=== PATIENT | male | born 1945 | race Caucasian/White ===

== ENCOUNTER 2016-12-08 14:12 | Inpatient (IN) ==
[2016-12-08] MEDS ORDERED: MORPHINE 2 MG/1 ML SYRINGE IV STA (15:30)
--- NOTE | 2016-12-08 15:33 | Emergency Department Note ---
Arrival - Arrival Chief Complaint: Extremity Problem Stated Complaint: severe Right foot pain ED Nursing Triage Note: C/o right foot pain-onset 8 weeks ago after a fall. Reports pain is worse today. Denies re-injuring foot. Reports that he has a wound to his right foot that he has been being treated by wound care. Mode of Arrival: Wheelchair Source: Patient Time Seen by Provider: 12/08/16 15:15 - History of Present Illness HPI Narrative: 71yo WM with PMH of HTN, CAD, PVD, prior CVA and AL presenting with right foot pain for the past 8 weeks. He states he fell initially and his right foot has been hurting since with worsening ulcer on his medial right foot. He had a fever up to 101.9 2 days ago and states that the foot is tremendously painful. He had planned to see Dr. Garcia after seeing his PCP Dr. Camara, but has not done this yet. Onset (ago): week(s) (8) Consistency: constant Severity: severe Quality: aching, sharp Allergies/Adverse Reactions: Allergies Allergy/AdvReac Type Severity Reaction Status Date / Time Transpore Tape Allergy Redness of Uncoded 10/09/16 05:23 Skin Home Medications: Home Medications Medication Instructions Recorded Confirmed Type Gabapentin 300 mg PO 0800,1200 09/20/15 12/08/16 History Methocarbamol Tab [Robaxin Tab] 500 mg PO BID PRN 09/20/15 12/08/16 History Morphine Sulfate [Morphine Sulfate 15 mg PO BEDTIME 09/20/15 12/08/16 History ER] traZODone [Desyrel] 150 mg PO BEDTIME 09/20/15 12/08/16 History Budesonide/Formoterol 160-4.5 2 puff INH BID 10/27/15 12/08/16 History [Symbicort 160-4.5] Spironolactone [Aldactone] 25 mg PO DAILY #30 tablet 11/03/15 12/08/16 Rx Rifaximin [Xifaxan] 550 mg PO BID 03/25/16 12/08/16 History Hydrocodone/Acetaminophen 1 tablet PO QID PRN 09/21/16 12/08/16 History [Hydrocodon-Acetaminophn 10-325] Carvedilol [Coreg] 6.25 mg PO BID #60 tablet 09/23/16 12/08/16 Rx Furosemide Tab [Lasix Tab] 40 mg PO DAILY #30 tablet 09/23/16 12/08/16 Rx Ipratropium/Albuterol Inhaler 1 puff INH QID #1 inhaler 09/23/16 12/08/16 Rx [Combivent Respimat Inhaler] Valsartan [Diovan] 40 mg PO DAILY #30 tablet 09/23/16 12/08/16 Rx Gabapentin 600 mg PO QPM 10/21/16 12/08/16 History Pantoprazole Sodium 40 mg PO AC SUPPER 10/21/16 12/08/16 History Albuterol Sulfate [Ventolin HFA] 2 puff INH Q4H PRN 12/04/16 12/08/16 History Lactulose Liquid [Chronulac] 160 gm PO DIRECTED 12/04/16 12/08/16 History dilTIAZem HCl [Diltiazem HCl] 120 mg PO DAILY 12/04/16 12/08/16 History Collagenase Oint [Santyl Oint] 1 applic TOP DAILY 12/08/16 12/08/16 History Review of System - Review of System Constitutional: Present: chills, fever Eyes: Absent: discharge, pain Head/Ears/Nose/Throat: Absent: earache, epistaxis Respiratory: Absent: cough, respiratory distress Cardiovascular: Absent: chest pain, palpitations, dyspnea on exertion, orthopnea Gastrointestinal: Absent: abdominal pain, nausea, diarrhea Genitourinary male: Absent: dysuria, frequency Musculoskeletal: Present: arthralgia, other (right foot pain, redness and swelling). Absent: arm pain, back pain Skin: Present: other (redness of right foot). Absent: rash, lesions Neurological: Absent: headache, weakness Psychiatric: Absent: anxiety, depression Endocrine: Absent: cold intolerance, fatigue Hematological/Lymphatic: Absent: easy bleeding, easy bruising Allergic/Immunologic: Absent: facial swelling, urticaria Medical,Surgical,& Family Hx - Medical History Cardio: History of: Cardiac Dysrhythmia (atrial fibrillation), CHF, Hypertension , Cardiovascular Problems (non-ischemic cardiomyopathy at [facility]) No history of: CAD Neurology: History of: Cerebrovascular Accident, Dementia, Seizures HEENT: History of: Ear Problem (DEAF RT EAR), Eye Problem (GLASSES) Endocrine: History of: Diabetes Mellitus (NIDDM) No history of: Diabetes Mellitus (IDDM) Respiratory: History of: COPD No history of: Respiratory Problems (PNEUM OR FLU VAC) Genitourinary: History of: Problems Gastrointestinal: History of: Liver Problems (Hepatitis C), GI Problems ( encephalopathy) Musculoskeletal: History of: Back/Neck Problems (CHRONIC DR. DEL CID HX INJECTIONS ), Musculoskeletal Problems (ARTHRITIS/LT SHOULDER ROTATOR CUFF TEAR-INJURY NOVEMBER 2014) Hematology: No history of: Blood Transfusion Reaction Other: History of: Skin Problems (left arm red and dry and has a lesion on it also) No history of: Anesthesia Reactions, Cancer - Surgical History Cardiac Surgeries: Sugical HX of: Cardiac Catheterization Patient Denies: Femoral-Popliteal Bypass Graft, Cardiac Surgery, Carotid Endarterectomy, Internal Defibrillator, Vascular Access Devices Neurologic Surgeries: Patient denies: Neurologic Surgery HEENT Surgeries: Surgical HX of: Eye Surgery (CATARACT RT/LT) Patient denies: Carotid Endarterectomy Abdominal Surgeries: Surgical HX of: Cholecystectomy, Colonoscopy Patient denies: Splenectomy Orthopedic Surgeries: Surgical HX of;: Orthopedic Surgery (RT RCR/FOR LT RCR 06/15), Spinal Surgery (Lumbar discectomy) - Family History Family History: Reports;: Family Cancer, Family Heart Disease, Family Hypertension - Social History Smoking Status: Current every day smoker Frequency of Alcohol Use: None Type of Drug Use: None Exam Vital Signs: Vital Signs Temperature 97.9 F 12/08/16 14:46 Pulse Rate 71 12/08/16 14:46 Respiratory Rate 20 12/08/16 14:46 Blood Pressure 141/96 12/08/16 14:46 O2 Sat by Pulse Oximetry 98 12/08/16 14:26 - General General appearance: alert, in no apparent distress - Head Head exam: Present: atraumatic, normocephalic - Eye Eye exam: Present: normal appearance, PERRL, EOMI - ENT ENT exam: Present: normal exam, normal oropharynx - Neck Neck exam: Present: normal inspection, full ROM, trachea midline - Chest Chest inspection: Present: normal inspection, symmetric chest wall rise - Respiratory Respiratory exam: Present: normal lung sounds bilaterally. Absent: accessory muscle use - Cardiovascular Cardiovascular exam: Present: regular rate, normal rhythm - Abdominal Exam Abdominal exam: Present: soft. Absent: distention - Extremities Exam Extremities exam: Present: other (right foot with medial ulcer, approximately 4cm x 3cm with escar formation, malodorous with scant purulent material noted, surrounding erythema noted and severly tender) - Back Exam Back exam: Present: normal inspection, full ROM - Neurological Exam Neurological exam: Present: alert, oriented X3 - Psychiatric Psychiatric exam: Present: normal affect, normal mood - Skin Skin exam: Present: warm, dry Course Course Narrative: XR right foot. Morphine 4mg for pain. Labs drawn. Concern for osteomyelitis. CRP 5, K 2.6, CO2 17. Pt discussed with Hospitalist for admit. Results - Labs CBC & BMP: 12/08/16 15:38 12/08/16 15:38 Disposition Clinical Impression: Right foot pain, Foot ulcer, Hypokalemia Case discussed with: patient Disposition: Still a Patient Condition: Stable
[2016-12-08 15:53] LABS: Basophils % 0.5 % (0.0-0.8); Eosinophils # 0.6 10*3/uL (0.0-0.87); Eosinophils % 6.7 % (0.00-10.9); Hematocrit 34.3 VOL% (42.0-52.0); Hemoglobin 11.9 GM/DL (14.0-18.0); Immature Granulocytes % 0.4 %; Immature Granulocytes Absolute 0.03 #; Lymphocytes # 1.1 10*3/uL (1.4-4.0); Lymphocytes % 13.1 % (21.2-54.2); Mean Corpuscular HGB Conc 34.7 GM/DL (32-36); Mean Corpuscular Hemoglobin 36 PG (27-34); Mean Corpuscular Volume 104.9 FL (87-102); Mean Platelet Volume 11.8 FL (9.6-12.0); Monocytes # 0.9 10*3/uL (0.11-0.8); Monocytes % 11.4 % (1.7-12.7); Neutrophils # 5.6 10*3/uL (1.4-7.4); Neutrophils % 67.9 % (38.7-73.9); Platelet Count 155 T/CUMM (130-400); Red Blood Count 3.27 MC/CUMM (3.8-5.5); Red Cell Distribution Width 14.3 % (9.3-17.3); White Blood Count 8.3 T/CUMM (4-12)
[2016-12-08] MEDS ORDERED: MORPHINE 2 MG/1 ML SYRINGE ONE (15:55)
--- NOTE | 2016-12-08 15:55 | XRay Report ---
History is right foot pain and ulcer Right foot, 3 views There are vascular calcifications present There is lateral displacement of the bases of the first through fifth metatarsals with respect to the tarsal bones with additional superior displacement of the bases of the metatarsals. There are mild hypertrophic changes in this area There is a chronic appearing deformity of the distal aspects of the second and third metatarsals presumably related to remote trauma Mild degenerative changes present in the ankle and foot. No discrete erosions or aggressive periosteal reaction is seen Impression: 1. Lisfranc deformity which could be related to trauma or a neuropathic joint. Clinical correlation requested 2. Demineralization with mild degenerative changes PROCEDURE INTERPRETED AT [facility] DEPARTMENT OF RADIOLOGY Final Report Signed by: Dr. Suad Conte
[2016-12-08 16:03] LABS: INR 1.2; PT Patient Result 12.7 SECS; Partial Thromboplastin Time 36.2 SECS (0-40)
[2016-12-08 16:16] LABS: Calcium 8.4 MG/DL (8.5-10.1); Osmolality,Calculated 277.7 MOS/KG (273-304); Potassium 2.6 MMOL/L (3.5-5.1)
[2016-12-08] MEDS ORDERED: SODIUM CHLORIDE 0.9% 1,000 ML IV STA (16:53)
[2016-12-08 16:57] LABS: Sedimentation Rate-Westergren 60 MM/HR (0-20)
[2016-12-08] MEDS ORDERED: GLUCAGON 1 MG VIAL IM PRN (17:31)
[2016-12-08] MEDS ORDERED: ONDANSETRON 4 MG/2 ML VIAL IV PRN (17:31)
[2016-12-08] MEDS ORDERED: DEXTROSE 50% 25 GM/50 ML VIAL IV PRN (17:31)
--- NOTE | 2016-12-08 17:46 | Hospitalist History & Physical ---
Assessment and Plan (1) Foot ulcer Status: Acute Assessment and plan: Admit to med surg unit. Consult wound care for foot. Obtain blood cultures. Consult Dr. Garcia to see. pain control. Current Visit: Yes (2) Hypokalemia Status: Acute Assessment and plan: Replace potassium per protocol. Check mag also. Telemetry monitoring. Repeat labs in am. Current Visit: Yes (3) Tobacco abuse Status: Chronic Assessment and plan: Nicotine patch. Smoking cessation therapy. Current Visit: No (4) Cirrhosis Status: Chronic Current Visit: No (5) Congestive heart failure Status: Chronic Current Visit: No Qualifiers: Congestive heart failure type: systolic (6) CAD (coronary artery disease) Status: Acute Current Visit: No History of Present Illness Chief complaint: right foot pain History of present illness: Mr. Olivia is a 71 year old white male with a history of hypertension, CAD, PVD, CVA, NH, dementia, seizures, HCV, CHF, A. fib, nonischemic cardiomyopathy requiring AICD, cirrhosis, and renal insufficiency that presented to the ED today with complaints of pain to his right foot x 8 weeks. Patient states that he fellon the floor and hit his foot on a nightstand. He was seen in the ED for the injury and reports that he has since developed an ulcer which has worsened. The area is swollen and red in color. Patient reported a fever of 101.9 states that the pain is excruciating. Patient also reports chills but denies chest pain, shortness of breath, cough, dyspnea on exertion, nausea, vomiting, diarrhea or any symptoms at this time. Patient states that he performs daily dressing changes to his foot but is unable to recall the ointment that he uses. Patient is seen by Dr. Camara who is his PCP and had a consult was placed to Dr. Garcia but he has not yet received an appointment time. A foot x-ray was performed in the ED showed mild degenerative changes present in the ankle and foot. The impression was 'Lisfranc deformity which could be related to trauma or neuropathic joint'. There were 'no discrete erosions or aggressive periosteal reaction' seen. Patient's case has been discussed with Dr. Cooper the patient will be admitted to the hospitalist service for further evaluation and treatment. Home Medications Medication Instructions Recorded Confirmed Type Gabapentin 300 mg PO 0800,1200 09/20/15 12/08/16 History Methocarbamol Tab [Robaxin Tab] 500 mg PO BID PRN 09/20/15 12/08/16 History Morphine Sulfate [Morphine Sulfate 15 mg PO BEDTIME 09/20/15 12/08/16 History ER] traZODone [Desyrel] 150 mg PO BEDTIME 09/20/15 12/08/16 History Budesonide/Formoterol 160-4.5 2 puff INH BID 10/27/15 12/08/16 History [Symbicort 160-4.5] Spironolactone [Aldactone] 25 mg PO DAILY #30 tablet 11/03/15 12/08/16 Rx Rifaximin [Xifaxan] 550 mg PO BID 03/25/16 12/08/16 History Hydrocodone/Acetaminophen 1 tablet PO QID PRN 09/21/16 12/08/16 History [Hydrocodon-Acetaminophn 10-325] Carvedilol [Coreg] 6.25 mg PO BID #60 tablet 09/23/16 12/08/16 Rx Furosemide Tab [Lasix Tab] 40 mg PO DAILY #30 tablet 09/23/16 12/08/16 Rx Ipratropium/Albuterol Inhaler 1 puff INH QID #1 inhaler 09/23/16 12/08/16 Rx [Combivent Respimat Inhaler] Valsartan [Diovan] 40 mg PO DAILY #30 tablet 09/23/16 12/08/16 Rx Gabapentin 600 mg PO QPM 10/21/16 12/08/16 History Pantoprazole Sodium 40 mg PO AC SUPPER 10/21/16 12/08/16 History Albuterol Sulfate [Ventolin HFA] 2 puff INH Q4H PRN 12/04/16 12/08/16 History Lactulose Liquid [Chronulac] 160 gm PO DIRECTED 12/04/16 12/08/16 History dilTIAZem HCl [Diltiazem HCl] 120 mg PO DAILY 12/04/16 12/08/16 History Collagenase Oint [Santyl Oint] 1 applic TOP DAILY 12/08/16 12/08/16 History Allergies Allergy/AdvReac Type Severity Reaction Status Date / Time Transpore Tape Allergy Redness of Uncoded 10/09/16 05:23 Skin Medical,Surgical,& Family Hx - Medical History Cardio: History of: Cardiac Dysrhythmia (atrial fibrillation), CHF, Hypertension , Cardiovascular Problems (non-ischemic cardiomyopathy at [facility]) No history of: CAD Neurology: History of: Cerebrovascular Accident, Dementia, Seizures HEENT: History of: Ear Problem (DEAF RT EAR), Eye Problem (GLASSES) Endocrine: History of: Diabetes Mellitus (NIDDM) No history of: Diabetes Mellitus (IDDM) Respiratory: History of: COPD No history of: Respiratory Problems (PNEUM OR FLU VAC) Genitourinary: History of: Problems Gastrointestinal: History of: Liver Problems (Hepatitis C), GI Problems ( encephalopathy) Musculoskeletal: History of: Back/Neck Problems (CHRONIC DR. DEL CID HX INJECTIONS ), Musculoskeletal Problems (ARTHRITIS/LT SHOULDER ROTATOR CUFF TEAR-INJURY NOVEMBER 2014) Hematology: No history of: Blood Transfusion Reaction Other: History of: Skin Problems (left arm red and dry and has a lesion on it also) No history of: Anesthesia Reactions, Cancer - Surgical History Cardiac Surgeries: Sugical HX of: Cardiac Catheterization Patient Denies: Femoral-Popliteal Bypass Graft, Cardiac Surgery, Carotid Endarterectomy, Internal Defibrillator, Vascular Access Devices Neurologic Surgeries: Patient denies: Neurologic Surgery HEENT Surgeries: Surgical HX of: Eye Surgery (CATARACT RT/LT) Patient denies: Carotid Endarterectomy Abdominal Surgeries: Surgical HX of: Cholecystectomy, Colonoscopy Patient denies: Splenectomy Orthopedic Surgeries: Surgical HX of;: Orthopedic Surgery (RT RCR/FOR LT RCR 06/15), Spinal Surgery (Lumbar discectomy) - Family History Family History: Reports;: Family Cancer, Family Heart Disease, Family Hypertension - Social History Smoking Status: Current every day smoker Frequency of Alcohol Use: None Type of Drug Use: None Marital Status: Lives With:: Spouse Functional capacity: uses cane/walker - Constitutional Constitutional: Present: chills, fever(s), weakness - EENT Ears: Present: decreased hearing. Absent: ear discharge Nose, mouth and throat: Absent: epistaxis, headache(s) - Cardiovascular Cardiovascular: Absent: chest pain at rest, dyspnea on exertion - Respiratory Respiratory: Present: cough - Gastrointestinal Gastrointestinal: Absent: abdominal pain, nausea, vomiting - Genitourinary Genitourinary: Absent: difficulty urinating, hematuria - Musculoskeletal Musculoskeletal: Present: muscle weakness - Neurological Neurological: Present: frequent falls. Absent: confusion, numbness - Psychiatric Psychiatric: Absent: confusion Exam - Constitutional Vitals: Period Temp Pulse Resp BP Sys/Cutler Pulse Ox Last 24 Hr 97.9 F-97.9 F 71-71 20-20 141-141/96-96 98 General appearance: normal weight, no acute distress - Head Head exam: Present: normal inspection, normocephalic - Eye Eye exam: Present: EOMI. Absent: periorbital swelling Pupils: Present: JESSICA. Absent: dilated - ENT ENT exam: Present: normal exam - Respiratory Respiratory exam: Present: other (coarse). Absent: rhonchi - Cardiovascular Cardiovascular exam: Present: regular rate and rhythm. Absent: tachycardia - GI/Abdominal GI/Abdominal exam: Present: normal bowel sounds, soft. Absent: tenderness - Extremities Exam Extremities exam: Present: edema, other (ulcer to right medial foot; area surrounding ulcer is reddened and swollen) - Neurological Exam Neurological exam: Present: alert, oriented X3 - Psychiatric Psychiatric exam: Present: normal affect, normal mood - Skin Skin exam: Present: normal color, warm, dry Results - Labs CBC & BMP: 12/08/16 15:38 12/08/16 15:38 Lab Results: I have reviewed the past 24 hour labs
[2016-12-08] MEDS: SODIUM CHLORIDE 0.9% 1,000 ML IV SCH ×2 (18:35→20:49)
[2016-12-08] MEDS: MORPHINE 10 MG/1 ML VIAL IV PRN ×2 (19:33→23:04)
[2016-12-08] MEDS: POTASSIUM CHLORIDE 20 MEQ TABLET PO PRN ×2 (20:19→22:08)
[2016-12-08] MEDS: CARVEDILOL 6.25 MG TABLET PO SCH (20:50)
[2016-12-08] MEDS: INSULIN LISPRO 100 UNIT/ML SUBCUT SCH (20:54)
[2016-12-09] MEDS: POTASSIUM CHLORIDE 20 MEQ TABLET PO PRN ×2 (00:32→02:42)
[2016-12-09] MEDS: MORPHINE 2 MG/1 ML SYRINGE IV PRN ×4 (03:37→19:33)
[2016-12-09 03:50] LABS: Basophils # 0.1 10*3/uL (0.0-0.2); Basophils % 0.7 % (0.0-0.8); Eosinophils # 0.4 10*3/uL (0.0-0.87); Eosinophils % 6.5 % (0.00-10.9); Hematocrit 31.7 VOL% (42.0-52.0); Hemoglobin 10.6 GM/DL (14.0-18.0); Immature Granulocytes % 0.4 %; Immature Granulocytes Absolute 0.03 #; Lymphocytes # 0.7 10*3/uL (1.4-4.0); Lymphocytes % 10.2 % (21.2-54.2); Mean Corpuscular HGB Conc 33.4 GM/DL (32-36); Mean Corpuscular Hemoglobin 35 PG (27-34); Mean Corpuscular Volume 105.7 FL (87-102); Mean Platelet Volume 11.8 FL (9.6-12.0); Monocytes # 0.7 10*3/uL (0.11-0.8); Monocytes % 10.2 % (1.7-12.7); Neutrophils # 4.9 10*3/uL (1.4-7.4); Platelet Count 138 T/CUMM (130-400); Red Cell Distribution Width 14.6 % (9.3-17.3); White Blood Count 6.8 T/CUMM (4-12)
[2016-12-09 04:17] LABS: Calcium 8.5 MG/DL (8.5-10.1); Magnesium 1.9 MG/DL (1.8-2.4); Potassium 4.2 MMOL/L (3.5-5.1)
[2016-12-09 06:05] LABS: Band Neutrophils 3 % (0-10); Eosinophils 2 % (0-10); Lymphocytes 10 % (20-55); Myelocytes 2 %; Segmented Neutrophils 81 % (50-85); Total Cells Counted 100
[2016-12-09 06:06] LABS: Anisocytosis 1+; Ovalocytes 1+; Platelet Estimate Normal
[2016-12-09 06:56] LABS: Apearance,Urine Slightly Hazy (Clear); Bilirubin,Urine Negative (Negative); Blood, Urine Large mg/dL (Negative); Glucose,Urine (UA) Negative (Negative); Hyaline Casts,Urine 16 /LPF (0-3); Ketones,Urine Negative (Negative); Mucus,Urine Occasional /LPF (Occasional); Nitrite,Urine Negative (Negative); Protein,Urine 30 MG/DL; RBC,Urine 96 /HPF (0-4); Squamous Epithelial Cell,Urine Occasional /HPF (0-10); Urine Color Yellow (Yellow); Urine Specific Gravity 1.018 (1.001-1.035); WBC,Urine 25 /HPF (0-6)
[2016-12-09] MEDS: INSULIN LISPRO 100 UNIT/ML SUBCUT SCH ×4 (08:20→20:43)
[2016-12-09] MEDS: SODIUM CHLORIDE 0.9% 1,000 ML IV SCH ×3 (08:41→18:23)
[2016-12-09] MEDS: DILTIAZEM CD 120 MG CAPSULE PO SCH (08:59)
[2016-12-09] MEDS: PANTOPRAZOLE 40 MG TABLET PO SCH (09:00)
[2016-12-09] MEDS ORDERED: SPIRONOLACTONE 25 MG TABLET PO SCH (09:00)
[2016-12-09] MEDS: CARVEDILOL 6.25 MG TABLET PO SCH ×2 (09:00→20:44)
[2016-12-09] MEDS: NICOTINE 21 MG/24 HR PATCH TRANSDERM SCH (09:00)
[2016-12-09] MEDS ORDERED: VALSARTAN 80 MG TABLET PO SCH (09:00)
--- NOTE | 2016-12-09 11:10 | Hospitalist Progress Note ---
Assessment and Plan (1) Foot ulcer Status: Acute Assessment and plan: consult Dr. Villanueva for debridement, vancomycin IV Current Visit: Yes (2) COPD (chronic obstructive pulmonary disease) Status: Chronic Assessment and plan: duonebs Current Visit: No Qualifiers: COPD type: COPD with acute exacerbation Qualified Code(s): J44.1 - Chronic obstructive pulmonary disease with (acute) exacerbation (3) Back pain Status: Acute Assessment and plan: thoracic and lumbar xray, prn pain meds Current Visit: Yes (4) Congestive heart failure Status: Chronic Assessment and plan: bnp, echo ef 40% with diastolic dysfunction pap 50 Current Visit: No Qualifiers: Congestive heart failure type: systolic (5) HCV (hepatitis C virus) Status: Chronic Current Visit: No (6) Type 2 diabetes mellitus Status: Chronic Assessment and plan: isc, only, history of hypoglycemia in past Current Visit: No Qualifiers: Diabetes mellitus complication status: without complication (7) Atrial fibrillation Status: Chronic Assessment and plan: cont coreg and dilt Current Visit: No (8) Suspected sleep apnea Status: Acute Current Visit: No (9) Alcoholic cirrhosis Status: Chronic Assessment and plan: monitor for withdrawal Current Visit: No (10) DVT (deep venous thrombosis) Status: Acute Assessment and plan: us venous Current Visit: No Qualifiers: DVT location: upper extremity Affected thrombotic vein of extremity: brachial Chronicity: acute Laterality: right Qualified Code(s): I82.621 - Acute embolism and thrombosis of deep veins of right upper extremity (11) Hypokalemia Status: Acute Assessment and plan: replaced and resolved, hold lasix for now Current Visit: Yes Hospitalist: Subjective Interval history: Patient had multiple complaints. Mainly about other physicians that have been seeing him. Patient probably is just chronically unhappy. He reports some back pain. The wound on his foot he cannot tell me how long it had been there. He denies being diabetic. Has spoken with Dr. Villanueva as I am concerned that he needs urgent debridement. We have now made him n.p.o. Exam - Constitutional Vitals: Period Temp Pulse Resp BP Sys/Cutler Pulse Ox Last 24 Hr 96.5 F-97.9 F 63-76 18-20 113-141/62-96 98-100 Exam: Heart Rate-[iRR] Lungs-[few wheezes diminished] GI-[+bs soft, NT] Ext-[right foot necrotic ulcer with underlying abscess and surrounding site] Neuro [Motor 5/5], [alert and oriented times 3] psych [depressed mood and flat affect] General [no acute distress] Results - Labs CBC & BMP: 12/09/16 03:02 12/09/16 08:32 Lab Results: I have reviewed the past 24 hour labs - Diagnostic Findings Procedure: X-ray: report reviewed by me (lisfrance speedy )
--- NOTE | 2016-12-09 12:02 | XRay Report ---
History short of breath The heart is enlarged. Mediastinal and hilar contours unchanged for technique No congestive failure or confluent infiltrate is seen. Left base granuloma again seen Impression: Mild cardiomegaly PROCEDURE INTERPRETED AT [facility] DEPARTMENT OF RADIOLOGY Final Report Signed by: Dr. Suad Conte
--- NOTE | 2016-12-09 12:06 | XRay Report ---
Thoracic spine, 3 views History is mid back pain Alignment in the lateral plane is normal There are mild degenerative changes throughout the thoracic spine. Mild L1 compression fracture seen on prior chest x-ray of 09/21/2016. Chronic endplate changes in the midthoracic spine seen on prior studies. No new areas of vertebral body height loss is seen. Impression: 1. Chronic mild L1 compression fracture 2. Diffuse degenerative changes PROCEDURE INTERPRETED AT [facility] DEPARTMENT OF RADIOLOGY Final Report Signed by: Dr. Suad Conte
--- NOTE | 2016-12-09 12:08 | XRay Report ---
Lumbar spine, 5 views History is low back pain Comparison 01/19/2014 Branching renal calcifications most likely vascular. Underlying stones could be obscured. Prominent vascular calcifications present in the pelvis Alignment in the lateral plane is normal through L5-S1 Mild wedging of the L1 vertebral body is unchanged. There is minimal wedging and superior endplate height loss of L3 which is a new in the interval There are degenerative changes throughout the lumbar spine. Lower lumbar facet arthropathy present. Minimal spondylolisthesis of L3 is similar on the prior study Impression: 1. Mild compression fracture of L3 is new since January 19, 2014 but otherwise of uncertain age 2. Other chronic changes similar on the prior study PROCEDURE INTERPRETED AT [facility] [place] DEPARTMENT OF RADIOLOGY Final Report Signed by: Dr. Suad Conte
--- NOTE | 2016-12-09 12:32 | General Surgery Consult Note ---
Assessment and Plan (1) Foot ulcer Status: Acute Assessment and plan: This patient has a foot ulcer on his right foot that is likely related to peripheral vascular disease. This needs to be debrided to control infection but the patient already ate breakfast today so we will schedule this for the OR tomorrow morning. Ultimately he needs to complete a vascular workup to see if there is anything that can be done to improve the blood flow to both of his feet but this will have to take a backseat for now to the infection and there is flow in his foot so there is no pressing need to get any of these studies acutely. This was discussed with the patient and he is agreeable to the procedure. Current Visit: Yes History of Present Illness Chief complaint: Right foot pain History of present illness: Mr. Olivia is a 71 year old male with multiple medical problems for whom I was consulted to see for right foot pain. He has been seen by me in the past when he had an episode of volume depletion from nausea and vomiting that caused dehydration and ended up giving him a low flow state that exacerbated his peripheral vascular disease causing intermittent loss of pulses in his right foot. This resolved with IV fluid hydration and he was supposed to see Dr. Garcia as an outpatient for peripheral vascular disease. For some reason he never made it over to see Dr. Gaspar in clinic and he is readmitted now with a wound on his right foot that appears to have some necrotic tissue and infection and I was consulted to manage this. 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 There is no obvious osteomyelitis. Home Medications Medication Instructions Recorded Confirmed Type Gabapentin 300 mg PO 0800,1200 09/20/15 12/08/16 History Methocarbamol Tab [Robaxin Tab] 500 mg PO BID PRN 09/20/15 12/08/16 History Morphine Sulfate [Morphine Sulfate 15 mg PO BEDTIME 09/20/15 12/08/16 History ER] traZODone [Desyrel] 150 mg PO BEDTIME 09/20/15 12/08/16 History Budesonide/Formoterol 160-4.5 2 puff INH BID 10/27/15 12/08/16 History [Symbicort 160-4.5] Spironolactone [Aldactone] 25 mg PO DAILY #30 tablet 11/03/15 12/08/16 Rx Rifaximin [Xifaxan] 550 mg PO BID 03/25/16 12/08/16 History Hydrocodone/Acetaminophen 1 tablet PO QID PRN 09/21/16 12/08/16 History [Hydrocodon-Acetaminophn 10-325] Carvedilol [Coreg] 6.25 mg PO BID #60 tablet 09/23/16 12/08/16 Rx Furosemide Tab [Lasix Tab] 40 mg PO DAILY #30 tablet 09/23/16 12/08/16 Rx Ipratropium/Albuterol Inhaler 1 puff INH QID #1 inhaler 09/23/16 12/08/16 Rx [Combivent Respimat Inhaler] Valsartan [Diovan] 40 mg PO DAILY #30 tablet 09/23/16 12/08/16 Rx Gabapentin 600 mg PO QPM 10/21/16 12/08/16 History Pantoprazole Sodium 40 mg PO AC SUPPER 10/21/16 12/08/16 History Albuterol Sulfate [Ventolin HFA] 2 puff INH Q4H PRN 12/04/16 12/08/16 History Lactulose Liquid [Chronulac] 160 gm PO DIRECTED 12/04/16 12/08/16 History dilTIAZem HCl [Diltiazem HCl] 120 mg PO DAILY 12/04/16 12/08/16 History Collagenase Oint [Santyl Oint] 1 applic TOP DAILY 12/08/16 12/08/16 History Allergies Allergy/AdvReac Type Severity Reaction Status Date / Time Transpore Tape Allergy Redness of Uncoded 10/09/16 05:23 Skin Medical,Surgical,& Family Hx - Medical History Cardio: History of: Cardiac Dysrhythmia (atrial fibrillation), CHF, Hypertension , Cardiovascular Problems (non-ischemic cardiomyopathy at [facility]6) No history of: CAD Neurology: History of: Cerebrovascular Accident, Dementia, Seizures HEENT: History of: Ear Problem (DEAF RT EAR), Eye Problem (GLASSES) Endocrine: History of: Diabetes Mellitus (NIDDM) No history of: Diabetes Mellitus (IDDM) Respiratory: History of: COPD No history of: Respiratory Problems (PNEUM OR FLU VAC) Genitourinary: History of: Problems Gastrointestinal: History of: Liver Problems (Hepatitis C), GI Problems ( encephalopathy) Musculoskeletal: History of: Back/Neck Problems (CHRONIC DR. DEL CID HX INJECTIONS ), Musculoskeletal Problems (ARTHRITIS/LT SHOULDER ROTATOR CUFF TEAR-INJURY NOVEMBER 2014) Hematology: No history of: Blood Transfusion Reaction Other: History of: Skin Problems (left arm red and dry and has a lesion on it also) No history of: Anesthesia Reactions, Cancer - Surgical History Cardiac Surgeries: Sugical HX of: Cardiac Catheterization Patient Denies: Femoral-Popliteal Bypass Graft, Cardiac Surgery, Carotid Endarterectomy, Internal Defibrillator, Vascular Access Devices Neurologic Surgeries: Patient denies: Neurologic Surgery HEENT Surgeries: Surgical HX of: Eye Surgery (CATARACT RT/LT) Patient denies: Carotid Endarterectomy Abdominal Surgeries: Surgical HX of: Abdominal Surgery, Cholecystectomy, Colonoscopy Patient denies: Splenectomy Orthopedic Surgeries: Surgical HX of;: Orthopedic Surgery (RT RCR/FOR LT RCR 06/15), Spinal Surgery (Lumbar discectomy) - Family History Family History: Reports;: Family Cancer, Family Heart Disease, Family Hypertension - Social History Smoking Status: Current every day smoker Frequency of Alcohol Use: None Type of Drug Use: None - Constitutional Constitutional: Present: as per HPI - EENT Nose, mouth and throat: Present: as per HPI - Cardiovascular Cardiovascular: Present: as per HPI - Respiratory Respiratory: Present: as per HPI - Gastrointestinal Gastrointestinal: Present: as per HPI - Genitourinary Genitourinary: Present: as per HPI - Musculoskeletal Musculoskeletal: Present: as per HPI - Neurological Neurological: Present: as per HPI - Endocrine Endocrine: Present: as per HPI Hematologic/Lymphatic: Present: as per HPI Exam - Constitutional Vitals: Period Temp Pulse Resp BP Sys/Cutler Pulse Ox Last 24 Hr 96.5 F-97.9 F 62-76 18-20 111-141/62-96 98-100 General appearance: normal weight, no acute distress - Head Head exam: Present: normal inspection, normocephalic - Eye Eye exam: Present: EOMI Pupils: Present: JESSICA - ENT ENT exam: Present: normal exam Mouth exam: Present: normal external inspection - Neck Neck exam: Present: normal inspection, trachea midline - Respiratory Respiratory exam: Present: clear to auscultation bilaterally. Absent: accessory muscle use, chest wall tenderness - Cardiovascular Cardiovascular exam: Present: RRR. Absent: systolic murmur, tachycardia - GI/Abdominal GI/Abdominal exam: Present: soft. Absent: tenderness, rebound - Extremities Exam Extremities exam: Present: other (There is a necrotic ulceration on the right foot with surrounding erythema. There is some active drainage of purulent fluid. This is confined to the foot does not extend up the leg. The feet both have decreased capillary refill and are slightly cool distally to the touch but there is equal perfusion in both feet and there is capillary refill and flow in the right foot. A Doppler signal was present.) - Back Exam Back exam: Present: normal inspection - Neurological Exam Neurological exam: Present: alert, oriented X3 Speech: Present: normal - Skin Skin exam: Present: normal color, warm Results - Labs CBC & BMP: 12/09/16 03:02 12/09/16 08:32
--- NOTE | 2016-12-09 12:37 | Ultrasound Report ---
History is short of breath, leg pain Bilateral lower extremity venous Doppler performed with grayscale, spectral Doppler, and color flow analysis performed and interpreted. No evidence of echogenic, noncompressible thrombus seen in either common femoral, superficial femoral, popliteal, or saphenous veins Impression: No evidence of DVT seen in either lower extremity. PROCEDURE INTERPRETED AT [facility] DEPARTMENT OF RADIOLOGY Final Report Signed by: Dr. Suad Conte
[2016-12-09] MEDS: VANCOMYCIN INJ 1,000 MG in SODIUM CHLORIDE 0.9% 250 ML IV SCH (14:33)
[2016-12-09] MEDS: ALBUTEROL/IPRATROPIUM 3 ML NEB RESP TX SCH ×3 (15:38→23:38)
[2016-12-10] MEDS: MORPHINE 2 MG/1 ML SYRINGE IV PRN ×3 (01:14→13:34)
[2016-12-10] MEDS: VANCOMYCIN INJ 1,000 MG in SODIUM CHLORIDE 0.9% 250 ML IV SCH ×2 (01:21→13:42)
[2016-12-10] MEDS: ALBUTEROL/IPRATROPIUM 3 ML NEB RESP TX SCH ×4 (03:22→16:01)
[2016-12-10 05:16] LABS: Basophils % 0.5 % (0.0-0.8); Eosinophils # 0.3 10*3/uL (0.0-0.87); Eosinophils % 3.8 % (0.00-10.9); Hematocrit 27.8 VOL% (42.0-52.0); Hemoglobin 9.4 GM/DL (14.0-18.0); Immature Granulocytes % 0.6 %; Immature Granulocytes Absolute 0.05 #; Lymphocytes # 2.2 10*3/uL (1.4-4.0); Lymphocytes % 27.5 % (21.2-54.2); Mean Corpuscular HGB Conc 33.8 GM/DL (32-36); Mean Corpuscular Hemoglobin 36 PG (27-34); Mean Corpuscular Volume 106.5 FL (87-102); Mean Platelet Volume 11.6 FL (9.6-12.0); Monocytes # 1.3 10*3/uL (0.11-0.8); Monocytes % 15.8 % (1.7-12.7); Neutrophils # 4.2 10*3/uL (1.4-7.4); Neutrophils % 51.8 % (38.7-73.9); Platelet Count 145 T/CUMM (130-400); Red Blood Count 2.61 MC/CUMM (3.8-5.5); Red Cell Distribution Width 14.7 % (9.3-17.3); White Blood Count 8.2 T/CUMM (4-12)
[2016-12-10 05:44] LABS: Calcium 8.1 MG/DL (8.5-10.1); Magnesium 1.8 MG/DL (1.8-2.4); Osmolality,Calculated 273.7 MOS/KG (273-304); Potassium 4.4 MMOL/L (3.5-5.1)
[2016-12-10] MEDS ORDERED: CLINDAMYCIN INJ 900 MG in PREMIX 1 EACH IV ONE (06:00)
[2016-12-10 06:24] LABS: Eosinophils 4 % (0-10); Lymphocytes 26 % (20-55); Metamyelocytes 1 %; Myelocytes 1 %; Segmented Neutrophils 61 % (50-85); Total Cells Counted 100
[2016-12-10] MEDS ORDERED: BUPIVACAINE 0.25% 50 ML VIAL ONE (06:24)
[2016-12-10 06:25] LABS: Platelet Estimate Adequate
[2016-12-10] MEDS ORDERED: LIDOCAINE 100 MG/5 ML SYRINGE ONE (07:00)
[2016-12-10] MEDS ORDERED: ONDANSETRON 4 MG/2 ML VIAL ONE (07:00)
[2016-12-10] MEDS ORDERED: PHENYLEPHRINE 1 MG/10 ML SYRINGE IV ONE (07:00)
[2016-12-10] MEDS ORDERED: PROPOFOL 200 MG/20 ML VIAL IV ONE (07:00)
--- NOTE | 2016-12-10 07:39 | Operative Note ---
Pre-op diagnosis: Infected right foot ulcer Post-op diagnosis: other (Infected right foot ulcer with septic metatarsal joint ) Procedure: Preoperative diagnosis Infected right foot ulcer Postoperative diagnosis Infected right foot ulcer with septic metatarsal joint Procedures performed 1. Incision and drainage of right forefoot abscess 2. Excisional debridement of necrotic skin and subcutaneous tissue measuring 25 cm 3. Arthrotomy with drainage of septic joint of left forefoot Findings There was some creamy white pus coming from the wound once it was opened and this was cultured and sent to the lab. Excisional debridement was performed with a scalpel using 25 cm of skin and subcutaneous tissue but underneath the skin and subcutaneous tissue that was necrotic was the forefoot metatarsal joint which was obviously infected and full of pus. This was also drained and everything was packed and left open. Complications None apparent Specimen Cultures Anesthesia Monitored with local Blood loss Minimal Indications Infected right foot ulcer Description of procedure The patient was taken to the operating room and transferred to the operating table in supine position. Pressure points were padded and monitored anesthesia was administered the right foot was prepped with Betadine and draped sterilely. Timeout was called. Excisional debridement was performed of local anesthetic was administered and a forefoot abscess was encountered with moderate amount of pus. Cultures were sent to the lab. All the necrotic tissue was debrided which included a 25 cm area of skin and subcutaneous tissue and this was done of the scalp. We will was encountered at this point in time was a septic joint in the forefoot and the metatarsal with pus in the joint space. This was all washed out and packed with a wet-to-dry dressing using Dakin's. The foot was then wrapped and the patient was awakened from anesthesia and transferred to recovery. Postoperative plan Continue wound care and antibiotics We will discuss with orthopedic vascular studies tomorrow Anesthesia: MAC Surgeon / Physician: Luis Antonio Villanueva Estimated blood loss: minimal Specimens: other (cultures) Condition: stable Disposition: PACU Results - Labs CBC & BMP: 12/10/16 04:48 12/10/16 04:48 Discharge Plan - Discharge Medications No Action Morphine Sulfate [Morphine Sulfate ER] 15 mg PO BEDTIME Methocarbamol Tab [Robaxin Tab] 500 mg PO BID PRN PRN Reason: MUSCLE SPASMS Gabapentin 300 mg PO 0800,1200 traZODone [Desyrel] 150 mg PO BEDTIME Budesonide/Formoterol 160-4.5 [Symbicort 160-4.5] 2 puff INH BID Spironolactone [Aldactone] 25 mg PO DAILY #30 tablet Rifaximin [Xifaxan] 550 mg PO BID Hydrocodone/Acetaminophen [Hydrocodon-Acetaminophn 10-325] 1 tablet PO QID PRN PRN Reason: Pain Carvedilol [Coreg] 6.25 mg PO BID #60 tablet Furosemide Tab [Lasix Tab] 40 mg PO DAILY #30 tablet Valsartan [Diovan] 40 mg PO DAILY #30 tablet Gabapentin 600 mg PO QPM Pantoprazole Sodium 40 mg PO AC SUPPER Albuterol Sulfate [Ventolin HFA] 2 puff INH Q4H PRN PRN Reason: Shortness Of Breath/Wheezing Lactulose Liquid [Chronulac] 160 gm PO DIRECTED dilTIAZem HCl [Diltiazem HCl] 120 mg PO DAILY Collagenase Oint [Santyl Oint] 1 applic TOP DAILY Ipratropium/Albuterol Inhaler [Combivent Respimat Inhaler] 1 puff INH QID #1 inhaler - Follow Up or Referral - Forms/Instructions
[2016-12-10] MEDS ORDERED: SEVOFLURANE 1 UNIT/15 MINUTE INH ONE (07:53)
[2016-12-10] MEDS ORDERED: fentaNYL 100 MCG/2 ML VIAL ONE (07:53)
[2016-12-10] MEDS ORDERED: MIDAZOLAM 2 MG/2 ML VIAL ONE (07:54)
--- NOTE | 2016-12-10 07:59 | Anesthesia Post-Op ---
Anesthesia Post OP - Post Ansesthetic Evaluation Patient seen in post op: Yes Resp: within normal limits CV: within normal limits Mental: within normal limits Temp: within normal limits Woyy-Hu-[id number]: within normal limits Nausea and Vomiting: within normal limits Pain: within normal limits
[2016-12-10] MEDS ORDERED: ONDANSETRON 4 MG/2 ML VIAL IV PRN (08:05)
[2016-12-10] MEDS ORDERED: HYDROmorphone 2 MG/1 ML VIAL IV PRN (08:05)
[2016-12-10] MEDS: PANTOPRAZOLE 40 MG TABLET PO SCH (08:30)
[2016-12-10] MEDS ORDERED: LACTATED RINGERS 1,000 ML IV SCH (08:30)
[2016-12-10] MEDS: DILTIAZEM CD 120 MG CAPSULE PO SCH ×2 (08:40→13:40)
[2016-12-10] MEDS: CARVEDILOL 6.25 MG TABLET PO SCH ×2 (08:40→20:46)
[2016-12-10] MEDS: INSULIN LISPRO 100 UNIT/ML SUBCUT SCH ×4 (08:42→20:46)
[2016-12-10] MEDS: NICOTINE 21 MG/24 HR PATCH TRANSDERM SCH (09:00)
--- NOTE | 2016-12-10 13:51 | Hospitalist Progress Note ---
Assessment and Plan (1) Foot ulcer Status: Acute Assessment and plan: s/p debridement of necrosis and underlying abscess, joint was involved. Dr. Isaacs consulted. will need 6 weeks of IV abx, Dr. Capps consulted for sunday. Current Visit: Yes (2) COPD (chronic obstructive pulmonary disease) Status: Chronic Assessment and plan: duonebs Current Visit: No Qualifiers: COPD type: COPD with acute exacerbation Qualified Code(s): J44.1 - Chronic obstructive pulmonary disease with (acute) exacerbation (3) Back pain Status: Acute Assessment and plan: chronic mild L1 compression fracture Current Visit: Yes (4) Congestive heart failure Status: Chronic Assessment and plan: bnp 889, echo ef 40% with diastolic dysfunction pap 50, start lasix 20 mg IV bid , cont coreg Current Visit: No Qualifiers: Congestive heart failure type: systolic (5) HCV (hepatitis C virus) Status: Chronic Current Visit: No (6) Type 2 diabetes mellitus Status: Chronic Assessment and plan: isc, only, history of hypoglycemia in past Current Visit: No Qualifiers: Diabetes mellitus complication status: without complication (7) Atrial fibrillation Status: Chronic Assessment and plan: cont coreg but stop dilt due to bradycardia Current Visit: No (8) Suspected sleep apnea Status: Acute Assessment and plan: Consult Dr. Dnaiels Current Visit: No (9) Alcoholic cirrhosis Status: Chronic Assessment and plan: No evidence of withdrawal Current Visit: No (10) DVT (deep venous thrombosis) Status: Acute Assessment and plan: no dvt, start lovenox 40 Current Visit: No Qualifiers: DVT location: upper extremity Affected thrombotic vein of extremity: brachial Chronicity: acute Laterality: right Qualified Code(s): I82.621 - Acute embolism and thrombosis of deep veins of right upper extremity (11) Hypokalemia Status: Acute Assessment and plan: resolved Current Visit: Yes Hospitalist: Subjective Interval history: Patient's was at bedside. She was very negative regarding his previous care and does not seem mentally all there. Told patient he would have to go some place for IV antibiotics and wound care. Patient does not want to go to [facility]. Exam - Constitutional Vitals: Period Temp Pulse Resp BP Sys/Cutler Pulse Ox Last 24 Hr 97.3 F-99.2 F 47-64 14-21 73-112/34-60 97-100 Exam: Heart Rate-[iRR] Lungs-[clear GI-[+bs soft, NT] Ext-[right foot wrapped Neuro [Motor 5/5], [alert and oriented times 3] psych [depressed mood and flat affect] General [no acute distress] Results - Labs CBC & BMP: 12/10/16 04:48 12/10/16 04:48 Lab Results: I have reviewed the past 24 hour labs Labs: Blood culture negative no growth, urine culture negative no growth - Diagnostic Findings Procedure: Ultrasound: report reviewed by me (no dvt ), X-ray: report reviewed by me (chronic mild L1 compression fracture) Quality Measures - VTE Contraindication to Mechanical VTE Prophylaxis: Vascular Ulceration
[2016-12-10] MEDS ORDERED: MAGNESIUM SULF RIDER 2 GM in PREMIX 1 EACH IV ONE (13:58)
[2016-12-10] MEDS: ENOXAPARIN 40 MG/0.4 ML SYRINGE SUBCUT SCH (15:31)
[2016-12-10] MEDS: FUROSEMIDE 40 MG TABLET PO SCH (15:34)
[2016-12-10] MEDS ORDERED: FUROSEMIDE 20 MG/2 ML VIAL IV SCH (16:00)
--- NOTE | 2016-12-10 17:03 | Case Mgmt Physician Query Form ---
TB Signs and Symptoms Screening ([place]) INSTRUCTIONS: To be completed annually on residents/staff with a significant Tuberculin Skin Test (TST) upon admission/hire or a prior significant TST. To be completed on all staff at hire. Please respond to each listed symptom with an (X) in either the "YES" or "NO" box. Do you currently have any of the following symptoms: YES NO ( ) ( x) A cough If yes, is it: ( ) Productive ( ) Non- productive ( ) (x ) Hemoptysis (spitting up blood) ( ) ( x) Chest pains ( ) (x ) Weight Loss ( ) (x ) Fever ( ) (x ) Night Sweats ( x) ( ) Weakness ( ) (x ) Loss of Appetite ( ) (x ) Difficulty Breathing If you answered YES" to any of the above questions, how long have symptoms been present? Comments: If you have any questions, please contact me. Thank you, Esther ROBERTS P: [phone] F: [phone] E: [email or web address]
[2016-12-10] MEDS: LORazepam 0.5 MG TABLET PO PRN (20:46)
[2016-12-11] MEDS: VANCOMYCIN INJ 1,000 MG in SODIUM CHLORIDE 0.9% 250 ML IV SCH ×2 (01:26→12:46)
[2016-12-11] MEDS: LORazepam 0.5 MG TABLET PO PRN (05:26)
--- NOTE | 2016-12-11 06:46 | Event Note ---
General Surgery Progress Note Chief complaint This patient is a 71-year-old man with peripheral vascular disease who was admitted to the hospital with an infected ulcer of his right medial foot treated with excisional debridement of necrotic tissue and incision and drainage of foot abscess as well as septic metatarsal joint on 12/10/2016 Interval history The patient is doing well this morning. I discussed the operative findings with the patient. Pain is well controlled. Physical exam The patient is afebrile with normal vital signs The right foot wound appears clean with there is a significant rim of erythema around the edges of the wound. Labs Reviewed Imaging None Assessment and plan The patient has a severe infection of his forefoot that involves a Charcot deformity at the joint space between his first metatarsal and his cuneiform bone. I do not think that this foot is salvageable but before we take a final determination about this we will get some vascular noninvasive studies to see what his current blood supply is. He was scheduled to see Dr. Garcia as an outpatient for revascularization so I will follow-up on this as an inpatient and discuss it with Dr. Garcia once we have more information back. We will also get orthopedics to see him just leave recommendation about anything they can offer that might change the opportunity to salvage this foot.
[2016-12-11] MEDS: INSULIN LISPRO 100 UNIT/ML SUBCUT SCH ×4 (07:46→20:34)
[2016-12-11] MEDS: POTASSIUM CHLORIDE 10 MEQ TABLET PO SCH (08:09)
[2016-12-11] MEDS: CARVEDILOL 6.25 MG TABLET PO SCH ×2 (08:09→20:32)
[2016-12-11] MEDS: FUROSEMIDE 40 MG TABLET PO SCH (08:09)
[2016-12-11] MEDS: PANTOPRAZOLE 40 MG TABLET PO SCH (08:09)
[2016-12-11] MEDS: SODIUM HYPOCHLORITE 0.25% IRRIG 473 ML BOTTLE TOP SCH (08:10)
[2016-12-11] MEDS: NICOTINE 21 MG/24 HR PATCH TRANSDERM SCH (08:11)
[2016-12-11] MEDS: TUBERCULIN SKIN TEST 0.1 ML SYRINGE INTRADERM ONE ×2 (09:15→15:43)
--- NOTE | 2016-12-11 09:20 | Hospitalist Progress Note ---
Assessment and Plan - Time spent with patient Time spent with patient: Less than 30 minutes (1) Right foot pain Status: Acute Assessment and plan: s/p debridement of necrosis and I&D of abscess. On vancomycin. Will need six weeks. Being followed by general surgery who will further evaluate vascular with non invasive studies. Ortho was consulted. Continue pain control Current Visit: Yes (2) COPD (chronic obstructive pulmonary disease) Status: Chronic Assessment and plan: stable; continue current treatment Current Visit: No Qualifiers: COPD type: COPD with acute exacerbation Qualified Code(s): J44.1 - Chronic obstructive pulmonary disease with (acute) exacerbation (3) Congestive heart failure Status: Chronic Assessment and plan: stable; euvolemic; EF of 40% with diastolic dysfunction; on lasix and coreg; monitor electrolytes Current Visit: No Qualifiers: Congestive heart failure type: systolic (4) HCV (hepatitis C virus) Status: Chronic Assessment and plan: stable Current Visit: No (5) Atrial fibrillation Status: Chronic Assessment and plan: rate controlled; continue to monitor Current Visit: No Qualifiers: Atrial fibrillation type: chronic Qualified Code(s): I48.2 - Chronic atrial fibrillation (6) Type 2 diabetes mellitus Status: Chronic Assessment and plan: sugars controlled Current Visit: No Qualifiers: Diabetes mellitus complication status: without complication Diabetes mellitus prison insulin use: without prison use Qualified Code(s): E11.9 - Type 2 diabetes mellitus without complications Hospitalist: Subjective Interval history: Patient notes right foot pain even with moving the sheet. He denies any SOB/CP/n ,v/constipation. Patient does not want to go to swing bed. recommends LTAC given length of antibiotics. Exam - Constitutional Vitals: Period Temp Pulse Resp BP Sys/Cutler Pulse Ox Last 24 Hr 97.9 F-98.7 F 51-67 18-20 99-147/50-80 98-100 General appearance: no acute distress - Respiratory Respiratory exam: Present: clear to auscultation bilaterally - Cardiovascular Cardiovascular exam: Present: irregular rhythm - GI/Abdominal GI/Abdominal exam: Present: normal bowel sounds - Extremities Exam Extremities exam: Present: edema, other (right foot wrapped but patient had signficant tenderness with removal of the sheet) - Neurological Exam Neurological exam: Present: alert, oriented X3 Results - Labs CBC & BMP: 12/10/16 04:48 12/10/16 04:48 Quality Measures - VTE Contraindication to Mechanical VTE Prophylaxis: Vascular Ulceration
--- NOTE | 2016-12-11 09:34 | Post Interventional Procedure ---
Pre-op diagnosis: Foot abscess Post-op diagnosis: same Procedure: PICC LUE Flouroscopy: 0.1 min Radiologist: Grayson Carlson Anesthesia: local Specimens: none sent Estimated blood loss: none Complications: none Condition: stable Assessment and Plan - Time spent with patient Time spent with patient: Less than 30 minutes
[2016-12-11] MEDS: MORPHINE 2 MG/1 ML SYRINGE IV PRN ×4 (09:54→22:10)
--- NOTE | 2016-12-11 10:21 | Physician Query Form ---
CLICK EDIT DOCUMENT TO SELECT QUERY ANSWER --> OK --> SIGN Yvette Perry RN Clinical Tools Administrator W) [phone] (f) [phone] [email or web address]: Make your selection(s) from the choices in EACH section by typing an "x" and enter comments in the comment section. Please use your independent medical judgment in providing your response. This request does not imply that any particular answer is desired or expected. CLINICAL INDICATORS: (Providers should not edit this section) Based on lab results of creatinine on adnmission of 1.40 with a GFR of 55 and decreased to 0.90. Pt. treated with IV fluids of Normal Saline. Clarify which of the following most accurately represents the patient's renal status: ( ) Acute kidney injury (non-traumatic) ( x) Acute renal failure ( ) Acute renal failure with underlying Chronic Kidney Disease (CKD) - please provide stage below ( ) CKD - please provide stage below ( ) Other, please specify: ( ) Clinically unable to determine Chronic Kidney Disease Stages Source: National Kidney Disease Foundation ( ) Stage I (eGFR > or = 90) ( ) Stage II (eGFR 60 - 89) (x ) Stage III (eGFR 30 - 59) ( ) Stage IV (eGFR 15 - 29) ( ) Stage V (eGFR < 15 or dialysis) COMMENTS: PLEASE ALSO DOCUMENT RESPONSE IN PROGRESS NOTES AND/OR DISCHARGE SUMMARY Use of terms such as suspected, likely, or probable (associated with a specific diagnosis that is being evaluated, monitored, or treated as if it exists) are acceptable and can be restated in the discharge summary if not ruled out. MTDD
--- NOTE | 2016-12-11 10:43 | Interventional Radiology Rpt ---
IR PICC line insertion, US guide vascular access Indication: Infected foot. Long-term IV antibiotic therapy. PICC LINE Description: A formal timeout was performed. Maximum sterile barrier technique was used. Sonographic evaluation of the left upper extremity demonstrates patent and compressible basophilic vein. The upper arm was prepped and draped in sterile fashion. 3 cc 1% lidocaine was administered subcutaneously. Under sonographic guidance, a micropuncture needle was advanced into the vein. A captured sonographic image documents the position of the needle. Needle was exchanged over a wire for a peel-away sheath. A dual lumen power PICC, cut to 44 cm, was advanced over the wire until the tip was at the RA-SVC junction. The position of the catheter was confirmed with fluoroscopic guidance and an image stored in PACS. The wire and sheath were removed. Both ports of the PICC were aspirated and flushed with heparinized saline. The device was secured with a StatLock. Fluoroscopy: 0.1 minute. Impression: PICC line ready for immediate use. Routine catheter care. PROCEDURE INTERPRETED AT [facility] DEPARTMENT OF RADIOLOGY Final Report Signed by: Grayson Carlson M.D.
--- NOTE | 2016-12-11 11:54 | Orthopedic Consult Note ---
History of Present Illness Chief complaint: Right foot wound History of present illness: Mr. Olivia is a 71 year old male with a complicated medical history who was recently admitted with an abscess of the right foot. He underwent debridement with Dr. Villanueva and is currently being managed on IV antibiotics and local wound care. I was consulted for an opinion as to whether or not the foot was salvageable. Patient is having pain in the foot for almost a couple months and recently injured it when it was struck on a object in his home. He came to the emergency department for evaluation when he began having increased pain and swelling in the foot. The time he had some fevers but no other constitutional symptoms. Home Medications Medication Instructions Recorded Confirmed Type Gabapentin 300 mg PO 0800,1200 09/20/15 12/08/16 History Methocarbamol Tab [Robaxin Tab] 500 mg PO BID PRN 09/20/15 12/08/16 History Morphine Sulfate [Morphine Sulfate 15 mg PO BEDTIME 09/20/15 12/08/16 History ER] traZODone [Desyrel] 150 mg PO BEDTIME 09/20/15 12/08/16 History Budesonide/Formoterol 160-4.5 2 puff INH BID 10/27/15 12/08/16 History [Symbicort 160-4.5] Spironolactone [Aldactone] 25 mg PO DAILY #30 tablet 11/03/15 12/08/16 Rx Rifaximin [Xifaxan] 550 mg PO BID 03/25/16 12/08/16 History Hydrocodone/Acetaminophen 1 tablet PO QID PRN 09/21/16 12/08/16 History [Hydrocodon-Acetaminophn 10-325] Carvedilol [Coreg] 6.25 mg PO BID #60 tablet 09/23/16 12/08/16 Rx Furosemide Tab [Lasix Tab] 40 mg PO DAILY #30 tablet 09/23/16 12/08/16 Rx Ipratropium/Albuterol Inhaler 1 puff INH QID #1 inhaler 09/23/16 12/08/16 Rx [Combivent Respimat Inhaler] Valsartan [Diovan] 40 mg PO DAILY #30 tablet 09/23/16 12/08/16 Rx Gabapentin 600 mg PO QPM 10/21/16 12/08/16 History Pantoprazole Sodium 40 mg PO AC SUPPER 10/21/16 12/08/16 History Albuterol Sulfate [Ventolin HFA] 2 puff INH Q4H PRN 12/04/16 12/08/16 History Lactulose Liquid [Chronulac] 160 gm PO DIRECTED 12/04/16 12/08/16 History dilTIAZem HCl [Diltiazem HCl] 120 mg PO DAILY 12/04/16 12/08/16 History Collagenase Oint [Santyl Oint] 1 applic TOP DAILY 12/08/16 12/08/16 History Allergies Allergy/AdvReac Type Severity Reaction Status Date / Time Transpore Tape Allergy Redness of Uncoded 10/09/16 05:23 Skin 12 point system: reviewed and no additional remarkable complaints except as stated Medical,Surgical,& Family Hx - Medical History Cardio: History of: Cardiac Dysrhythmia (atrial fibrillation), CHF, Hypertension , Cardiovascular Problems (non-ischemic cardiomyopathy at [facility] 1016) No history of: CAD Neurology: History of: Cerebrovascular Accident, Dementia, Seizures HEENT: History of: Ear Problem (DEAF RT EAR), Eye Problem (GLASSES) Endocrine: History of: Diabetes Mellitus (NIDDM) No history of: Diabetes Mellitus (IDDM) Respiratory: History of: COPD No history of: Respiratory Problems (PNEUM OR FLU VAC) Genitourinary: History of: Problems Gastrointestinal: History of: Liver Problems (Hepatitis C), GI Problems ( encephalopathy) Musculoskeletal: History of: Back/Neck Problems (CHRONIC DR. DEL CID HX INJECTIONS ), Musculoskeletal Problems (ARTHRITIS/LT SHOULDER ROTATOR CUFF TEAR-INJURY NOVEMBER 2014) Hematology: No history of: Blood Transfusion Reaction Other: History of: Skin Problems (left arm red and dry and has a lesion on it also) No history of: Anesthesia Reactions, Cancer - Surgical History Cardiac Surgeries: Sugical HX of: Cardiac Catheterization Patient Denies: Femoral-Popliteal Bypass Graft, Cardiac Surgery, Carotid Endarterectomy, Internal Defibrillator, Vascular Access Devices Neurologic Surgeries: Patient denies: Neurologic Surgery HEENT Surgeries: Surgical HX of: Eye Surgery (CATARACT RT/LT) Patient denies: Carotid Endarterectomy Abdominal Surgeries: Surgical HX of: Abdominal Surgery, Cholecystectomy, Colonoscopy Patient denies: Splenectomy Orthopedic Surgeries: Surgical HX of;: Orthopedic Surgery (RT RCR/FOR LT RCR 06/15), Spinal Surgery (Lumbar discectomy) - Family History Family History: Reports;: Family Cancer, Family Heart Disease, Family Hypertension - Social History Smoking Status: Current every day smoker Frequency of Alcohol Use: None Type of Drug Use: None Exam - Constitutional Vitals: Period Temp Pulse Resp BP Sys/Cutler Pulse Ox Last 24 Hr 97.7 F-98.7 F 52-70 18-20 99-147/50-80 98-100 Exam: Examination of the right foot shows a large wound on the medial aspect of the midfoot. There is a large area of exposed bone around the first TMT joint which is also exposed. There is no drainage currently. The bone is slightly discolored. There is a foul-smelling odor. There is obvious lateral deviation of the forefoot. Results - Labs CBC & BMP: 12/10/16 04:48 12/10/16 04:48 - Diagnostic Findings Procedure: X-ray: image reviewed by me (Radiographs of the right foot were reviewed. He has lateral deviation of the entire forefoot at the TMT joints. First TMT joints almost completely dislocated laterally.) Assessment and Plan (1) Foot ulcer Status: Acute Assessment and plan: I discussed the problems with Mr. Olivia in detail. He appears to have a Charcot deformity of the right foot which has developed into an ulcer with likely underlying osteomyelitis. Due to his extensive soft tissue loss overlying the medial foot and his significant comorbidities, I do not think salvage of the foot is a viable option at this point. Even if his vascular status is improved, I do not think there is enough soft tissue locally to cover the deep tissues and allow for reconstructive surgery. My recommendation to the patient was to consider transtibial amputation. I feel that this would be the best and quickest way to improve his function and resolve the infection. Current Visit: Yes Qualifiers: Laterality: right Non-pressure ulcer stage: with necrosis of bone Qualified Code(s): L97.514 - Non-pressure chronic ulcer of other part of right foot with necrosis of bone
[2016-12-11] MEDS: ENOXAPARIN 40 MG/0.4 ML SYRINGE SUBCUT SCH (13:46)
--- NOTE | 2016-12-11 15:15 | Infectious Disease Consult ---
Assessment and Plan (1) Foot ulcer Status: Acute Assessment and plan: Lateral to the right foot with exposed bone, likely osteomyelitis and also septic arthritis of the right foot. Cultures with several gram-negative rods and also a gram-positive coccus. Recommendations: 1. Agree with empiric vancomycin 2. Add Zosyn 3.375 g every 8 3. Follow-up cultures and adjust antibiotics accordingly 4. Given the extent of the wound and bone destruction from the right foot I agree with Dr. Isaacs that below-knee amputation is the best option for definitive management. Antibiotics will likely be stopped 1-2 days post amputation assuming blood cultures remain negative. Thank you very much for the consult. Will follow. Current Visit: Yes Qualifiers: Laterality: right Non-pressure ulcer stage: with necrosis of bone Qualified Code(s): L97.514 - Non-pressure chronic ulcer of other part of right foot with necrosis of bone (2) Atrial fibrillation Status: Chronic Current Visit: No Qualifiers: Atrial fibrillation type: chronic Qualified Code(s): I48.2 - Chronic atrial fibrillation (3) COPD (chronic obstructive pulmonary disease) Status: Chronic Current Visit: No Qualifiers: COPD type: COPD with acute exacerbation Qualified Code(s): J44.1 - Chronic obstructive pulmonary disease with (acute) exacerbation (4) Type 2 diabetes mellitus Status: Chronic Current Visit: No Qualifiers: Diabetes mellitus complication status: without complication Diabetes mellitus residential insulin use: without residential use Qualified Code(s): E11.9 - Type 2 diabetes mellitus without complications History of Present Illness Chief complaint: Abscess to right foot History of present illness: Mr. Olivia is a 71 year old male Who fell and damaged his right foot several weeks ago. He developed an ulcer over the area approximately 10 days ago he says, which got progressively worse and started draining pus. Because of severe pain he decided to come to the hospital. He is not sure if he had fever at home. On presentation he was noted to have exposed bone. Amputation has been recommended but patient is very reluctant. I am asked to advise on antibiotic therapy. Home Medications Medication Instructions Recorded Confirmed Type Gabapentin 300 mg PO 0800,1200 09/20/15 12/08/16 History Methocarbamol Tab [Robaxin Tab] 500 mg PO BID PRN 09/20/15 12/08/16 History Morphine Sulfate [Morphine Sulfate 15 mg PO BEDTIME 09/20/15 12/08/16 History ER] traZODone [Desyrel] 150 mg PO BEDTIME 09/20/15 12/08/16 History Budesonide/Formoterol 160-4.5 2 puff INH BID 10/27/15 12/08/16 History [Symbicort 160-4.5] Spironolactone [Aldactone] 25 mg PO DAILY #30 tablet 11/03/15 12/08/16 Rx Rifaximin [Xifaxan] 550 mg PO BID 03/25/16 12/08/16 History Hydrocodone/Acetaminophen 1 tablet PO QID PRN 09/21/16 12/08/16 History [Hydrocodon-Acetaminophn 10-325] Carvedilol [Coreg] 6.25 mg PO BID #60 tablet 09/23/16 12/08/16 Rx Furosemide Tab [Lasix Tab] 40 mg PO DAILY #30 tablet 09/23/16 12/08/16 Rx Ipratropium/Albuterol Inhaler 1 puff INH QID #1 inhaler 09/23/16 12/08/16 Rx [Combivent Respimat Inhaler] Valsartan [Diovan] 40 mg PO DAILY #30 tablet 09/23/16 12/08/16 Rx Gabapentin 600 mg PO QPM 10/21/16 12/08/16 History Pantoprazole Sodium 40 mg PO AC SUPPER 10/21/16 12/08/16 History Albuterol Sulfate [Ventolin HFA] 2 puff INH Q4H PRN 12/04/16 12/08/16 History Lactulose Liquid [Chronulac] 160 gm PO DIRECTED 12/04/16 12/08/16 History dilTIAZem HCl [Diltiazem HCl] 120 mg PO DAILY 12/04/16 12/08/16 History Collagenase Oint [Santyl Oint] 1 applic TOP DAILY 12/08/16 12/08/16 History Allergies Allergy/AdvReac Type Severity Reaction Status Date / Time Transpore Tape Allergy Redness of Uncoded 10/09/16 05:23 Skin 12 point system: reviewed and no additional remarkable complaints except as stated (Per HPI) Medical,Surgical,& Family Hx - Medical History Cardio: History of: Cardiac Dysrhythmia (atrial fibrillation), CHF, Hypertension , Cardiovascular Problems (non-ischemic cardiomyopathy at [facility]) No history of: CAD Neurology: History of: Cerebrovascular Accident, Dementia, Seizures HEENT: History of: Ear Problem (DEAF RT EAR), Eye Problem (GLASSES) Endocrine: History of: Diabetes Mellitus (NIDDM) No history of: Diabetes Mellitus (IDDM) Respiratory: History of: COPD No history of: Respiratory Problems (PNEUM OR FLU VAC) Genitourinary: History of: Problems Gastrointestinal: History of: Liver Problems (Hepatitis C), GI Problems ( encephalopathy) Musculoskeletal: History of: Back/Neck Problems (CHRONIC DR. DEL CID HX INJECTIONS ), Musculoskeletal Problems (ARTHRITIS/LT SHOULDER ROTATOR CUFF TEAR-INJURY NOVEMBER 2014) Hematology: No history of: Blood Transfusion Reaction Other: History of: Skin Problems (left arm red and dry and has a lesion on it also) No history of: Anesthesia Reactions, Cancer - Surgical History Cardiac Surgeries: Sugical HX of: Cardiac Catheterization Patient Denies: Femoral-Popliteal Bypass Graft, Cardiac Surgery, Carotid Endarterectomy, Internal Defibrillator, Vascular Access Devices Neurologic Surgeries: Patient denies: Neurologic Surgery HEENT Surgeries: Surgical HX of: Eye Surgery (CATARACT RT/LT) Patient denies: Carotid Endarterectomy Abdominal Surgeries: Surgical HX of: Abdominal Surgery, Cholecystectomy, Colonoscopy Patient denies: Splenectomy Orthopedic Surgeries: Surgical HX of;: Orthopedic Surgery (RT RCR/FOR LT RCR 06/15), Spinal Surgery (Lumbar discectomy) - Family History Family History: Reports;: Family Cancer, Family Heart Disease, Family Hypertension - Social History Smoking Status: Current every day smoker Frequency of Alcohol Use: None Type of Drug Use: None Infectious Disease Exam H&P - Constitutional Vitals: Vital Signs Temp Pulse Resp BP Pulse Ox 97.7 F 70 19 143/67 100 12/11/16 11:47 12/11/16 11:47 12/11/16 11:47 12/11/16 11:47 12/11/16 11:47 Intake and Output 12/10/16 12/11/16 12/11/16 23:59 07:59 15:59 Intake Total 480 / 480 360 / 360 300 / 300 Output Total 500 / 500 600 / 600 Balance -20 / -20 -240 / -240 300 / 300 Intake: Oral 480 / 480 360 / 360 300 / 300 Output: Urine 500 / 500 600 / 600 Other: Voiding Method Urinal Urinal # Voids 650 # Bowel Movements 1 0 Exam: General: Patient uncomfortable from severe pain to right foot HEENT: Mucous membranes pink and moist, anicteric acyanotic, JESSICA, no oropharyngeal exudates Neck: Supple, no thyroid gland enlargement, no lymphadenopathy Respiratory system: Breath sounds vesicular, no crepitations or wheezes Cardiovascular: Normal S1 and S2, no murmurs appreciated Abdomen: Normal bowel sounds, soft nontender throughout, no organomegaly or mass Genitourinary: No suprapubic pain or bladder distention Extremities: no edema, large ulcer to the medial aspect of right foot, about 5 cm wide, large bit of bone exposed, there is purulent drainage and surrounding erythema Skin: No rash Reports - Labs CBC & BMP: 12/10/16 04:48 12/10/16 04:48 - Reports Microbiology: Microbiology 12/09/16 Unknown Urine Culture - Final Urine,Clean Catch No Growth at 48 hours. 12/10/16 07:54 Abscess Culture - Preliminary Foot - Right Gram Positive Cocci Gram Negative Rods Gram Negative Rods#2 Gram Negative Rods#3
[2016-12-11] MEDS: PIPERACILLIN/TAZOBACTAM 3,375 MG in SODIUM CHLORIDE 0.9% 100 ML IV SCH ×2 (15:29→23:43)
[2016-12-12] MEDS: MORPHINE 2 MG/1 ML SYRINGE IV PRN ×6 (02:15→22:14)
[2016-12-12] MEDS: VANCOMYCIN INJ 1,000 MG in SODIUM CHLORIDE 0.9% 250 ML IV SCH ×2 (02:20→14:07)
[2016-12-12 04:41] LABS: Basophils # 0.1 10*3/uL (0.0-0.2); Basophils % 0.6 % (0.0-0.8); Eosinophils # 0.3 10*3/uL (0.0-0.87); Hematocrit 27.1 VOL% (42.0-52.0); Hemoglobin 9.6 GM/DL (14.0-18.0); Immature Granulocytes % 0.2 %; Immature Granulocytes Absolute 0.02 #; Lymphocytes # 2.4 10*3/uL (1.4-4.0); Lymphocytes % 28.5 % (21.2-54.2); Mean Corpuscular HGB Conc 35.4 GM/DL (32-36); Mean Corpuscular Hemoglobin 37 PG (27-34); Mean Corpuscular Volume 103.4 FL (87-102); Mean Platelet Volume 11.1 FL (9.6-12.0); Monocytes # 1.1 10*3/uL (0.11-0.8); Monocytes % 13.3 % (1.7-12.7); Neutrophils # 4.5 10*3/uL (1.4-7.4); Neutrophils % 53.4 % (38.7-73.9); Platelet Count 154 T/CUMM (130-400); Red Blood Count 2.62 MC/CUMM (3.8-5.5); Red Cell Distribution Width 14.3 % (9.3-17.3); White Blood Count 8.5 T/CUMM (4-12)
[2016-12-12 05:24] LABS: Calcium 7.8 MG/DL (8.5-10.1); Magnesium 1.4 MG/DL (1.8-2.4); Osmolality,Calculated 281.1 MOS/KG (273-304); Potassium 3.6 MMOL/L (3.5-5.1)
[2016-12-12] MEDS: LORazepam 0.5 MG TABLET PO PRN ×2 (05:44→14:08)
[2016-12-12] MEDS: INSULIN LISPRO 100 UNIT/ML SUBCUT SCH ×4 (07:33→22:31)
[2016-12-12] MEDS: PIPERACILLIN/TAZOBACTAM 3,375 MG in SODIUM CHLORIDE 0.9% 100 ML IV SCH ×3 (07:53→22:30)
[2016-12-12] MEDS: POTASSIUM CHLORIDE 10 MEQ TABLET PO SCH (07:59)
[2016-12-12] MEDS: FUROSEMIDE 40 MG TABLET PO SCH (07:59)
[2016-12-12] MEDS: PANTOPRAZOLE 40 MG TABLET PO SCH (07:59)
[2016-12-12] MEDS: NICOTINE 21 MG/24 HR PATCH TRANSDERM SCH (08:00)
[2016-12-12] MEDS: CARVEDILOL 6.25 MG TABLET PO SCH ×2 (08:00→22:14)
[2016-12-12] MEDS: SODIUM HYPOCHLORITE 0.25% IRRIG 473 ML BOTTLE TOP SCH (08:00)
--- NOTE | 2016-12-12 10:12 | Hospitalist Progress Note ---
Assessment and Plan (1) Right foot pain Status: Acute Assessment and plan: s/p debridement of necrosis and I&D of abscess. Patient with foot ulcer complicated by OM of right foot and septic arthritis who may need transtibial amputation. Preliminary cultures significant for GPC and GNRs. He has been seen by ID and charlie was added. Continue vancomycin. Await final culture results. Continue pain control Current Visit: Yes (2) COPD (chronic obstructive pulmonary disease) Status: Chronic Assessment and plan: stable; continue current treatment Current Visit: No Qualifiers: COPD type: COPD with acute exacerbation Qualified Code(s): J44.1 - Chronic obstructive pulmonary disease with (acute) exacerbation (3) Congestive heart failure Status: Chronic Assessment and plan: stable; euvolemic; EF of 40% with diastolic dysfunction; on lasix and coreg; monitor electrolytes Current Visit: No Qualifiers: Congestive heart failure type: systolic (4) HCV (hepatitis C virus) Status: Chronic Assessment and plan: stable Current Visit: No (5) Atrial fibrillation Status: Chronic Assessment and plan: rate controlled; continue to monitor Current Visit: No Qualifiers: Atrial fibrillation type: chronic Qualified Code(s): I48.2 - Chronic atrial fibrillation (6) Type 2 diabetes mellitus Status: Chronic Assessment and plan: sugars controlled Current Visit: No Qualifiers: Diabetes mellitus complication status: without complication Diabetes mellitus terminal operator insulin use: without snf use Qualified Code(s): E11.9 - Type 2 diabetes mellitus without complications (7) Anemia Status: Acute Assessment and plan: HCT has dropped; will start with basic work up; monitor Current Visit: No Hospitalist: Subjective Interval history: Patient note continual right foot pain. He states that the pain medications are helpful. Exam - Constitutional Vitals: Period Temp Pulse Resp BP Sys/Cutler Pulse Ox Last 24 Hr 97.7 F-100.2 F 63-80 18-20 111-143/60-70 97-100 General appearance: no acute distress - Head Head exam: Present: normal inspection - Eye Eye exam: Present: EOMI Pupils: Present: JESSICA - Respiratory Respiratory exam: Present: clear to auscultation bilaterally - Cardiovascular Cardiovascular exam: Present: irregular rhythm - GI/Abdominal GI/Abdominal exam: Present: normal bowel sounds - Extremities Exam Extremities exam: Present: edema (right foot wrapped in dressing) - Neurological Exam Neurological exam: Present: oriented X3 Results - Labs CBC & BMP: 12/12/16 04:08 12/12/16 04:08 Quality Measures - VTE Contraindication to Mechanical VTE Prophylaxis: Vascular Ulceration
--- NOTE | 2016-12-12 12:03 | Event Note ---
General Surgery Progress Note Chief complaint This patient is a 71-year-old man with peripheral vascular disease who was admitted to the hospital with an infected ulcer of his right medial foot treated with excisional debridement of necrotic tissue and incision and drainage of foot abscess as well as septic metatarsal joint on 12/10/2016 Interval history The patient was seen in consultation by orthopedics yesterday. They do not feel that his foot is salvageable or that if it was salvageable would require months and possibly even years of wound care and revisional surgery and the recommendation is for a below-knee amputation. The patient did have some noninvasive vascular studies done as outpatient on November 30 which demonstrated some inflow disease as well as some severe high-grade stenosis in the distal outflow of the right leg and runoff disease as well. Physical exam The patient is afebrile with normal vital signs The right foot wound appears clean with there is a significant rim of erythema around the edges of the wound. Labs Reviewed Imaging None Assessment and plan We will obtain CT angiogram of both lower extremities with runoff to assess the patient's candidacy for any revascularization. I have recommended amputation as has orthopedic surgery to the patient. Currently he does not have a palpable pulse but in his popliteal artery on the right side so there may still be a role for revascularization to improve his chances of a below-knee amputation as the next step in his therapy. We will continue antibiotics and wound care in the meantime.
[2016-12-12] MEDS: ENOXAPARIN 40 MG/0.4 ML SYRINGE SUBCUT SCH (13:33)
--- NOTE | 2016-12-12 14:56 | CT Report ---
Exam: CT angio abdomen/femoral Date: 12/12/2016 11:59 AM Comparison: None Indication: Bilateral lower extremity peripheral arterial disease Technical: Images were obtained from the lung bases through the iliac crest continuation through the abdomen/ pelvis to the toes with sagittal axial and coronal imaging available for review. 3-D Maximal intensity reproduction images are available for review. 125 cc of Omnipaque 350 were utilized. Dose reduction was performed with decreasing kv and mA and automated exposure Total DLP: 644.6 mGy*cm Findings: CT angiogram: Abdomen/pelvis. Distal thoracic aorta reveals vascular calcinosis of plaque present. The celiac hepatic and splenic arteries are intact. The SMA reveals mild plaque within the takeoff. Renal arteries reveal atherosclerotic plaque present bilaterally without high-grade stenosis. The inferior mesenteric artery is patent. Atherosclerotic plaque with fibrofatty plaque present in the aorta. The aorta measures 2.7 x 2.9 cm. The right common iliac and left common iliac arteries are patent. The internal iliac arteries and the external iliac arteries are patent bilaterally with moderate to high-grade stenosis plaque within the takeoff of the external iliac arteries from the common iliac artery regions. Extensive vascular calcinosis present. Right lower extremity: The common femoral artery is patent with atherosclerotic plaque. The superficial femoral artery reveals an area of complete occlusion distally just above the popliteal origin with skip lesions in the distal SFA and diffuse luminal irregularities and vascular calcinosis present. The profundus femoris arteries patent. The popliteal artery reveals an area of segmental occlusion. The anterior tibial and posterior tibial artery and peroneal artery are demonstrated in the distally with vascular calcification the proximal tibial peroneal trunk reveals an area of stenosis at the takeoff. The dorsalis pedis artery and the medial plantar branch the foot are faintly demonstrated Left lower extremity: Vascular calcification of the common carotid artery. The profundus femoris artery is patent in the SFA reveals vascular calcinosis and some moderate plaque with a small area of segmental focal stenosis in the mid SFA measuring approximately 40-50%. The popliteal artery is patent with vascular calcinosis and plaque present. The anterior tibial peroneal and posterior tibial arteries are demonstrated distally there is an area of narrowing within the takeoff of the posterior tibial artery vascular calcic is in the anterior tibial arteries present. The dorsalis pedis artery is patent. Medial plantar branch foot appears to be occluded Soft tissue analysis: Lung bases: Small granuloma in the left base measuring approximately 5 mm. Liver and Spleen: Minimal fatty infiltration of the liver. The spleen is unremarkable. Gallbladder and Pancreas: Previous cholecystectomy. The pancreas is unremarkable. Adrenals: Unremarkable Kidneys: Small nonobstructing stone in the right kidney measuring approximately 4.4 mm. Small calculi in the left kidney measure 3 to 4 mm. Stomach: Incomplete distended with air-fluid and debris Retroperitoneum: No enlarged lymph nodes. Bowel and Mesentery: Some fluid-filled loops of small bowel are present with moderate fecal debris in the rectal ampulla. Minimal diverticulosis without diverticulitis. The appendix is unremarkable. Pelvis: Bladder: Incompletely distended question small calcification in the posterior bladder Fluid: No free fluid identified. Lymph nodes: No enlarged lymph nodes. Pelvic organs: Prostate gland is demonstrated with minimal prostate calcification. Osseous structures: Degenerative changes thoracolumbar spine. Impression: 1. Vascular calcification of the aorta iliac vessels 2. Moderate to high-grade narrowing within the external iliac arteries bilaterally with significant plaque 3. Complete occlusion of the right SFA and proximal segment of popliteal artery with an area of narrowing within the tibial peroneal trunk on the right. Three-vessel runoff is however present on the right distally 4. Approximately 40-50% narrowing of the mid left SFA with three-vessel runoff in the left lower leg with vascular calcinosis 5. Prior cholecystectomy 6. Bilateral nephrolithiasis with a small stone in the posterior aspect of the urinary bladder also suspected 7. Mild fatty infiltration of the liver 8. Degenerative spondylosis changes thoracolumbar spine. PROCEDURE INTERPRETED AT [facility] DEPARTMENT OF RADIOLOGY Final Report Signed by: Dr. Bobby Griffiths
--- NOTE | 2016-12-12 16:58 | Infectious Disease Progress ---
Assessment and Plan (1) Foot ulcer Status: Acute Assessment and plan: Involving he right foot with exposed bone, likely osteomyelitis and also septic arthritis of the right foot. Cultures with several gram-negative rods and also a gram-positive coccus. Recommendations: Continue antibiotics for now and follow-up final cultures. Current Visit: Yes Qualifiers: Laterality: right Non-pressure ulcer stage: with necrosis of bone Qualified Code(s): L97.514 - Non-pressure chronic ulcer of other part of right foot with necrosis of bone (2) Atrial fibrillation Status: Chronic Current Visit: No Qualifiers: Atrial fibrillation type: chronic Qualified Code(s): I48.2 - Chronic atrial fibrillation (3) COPD (chronic obstructive pulmonary disease) Status: Chronic Current Visit: No Qualifiers: COPD type: COPD with acute exacerbation Qualified Code(s): J44.1 - Chronic obstructive pulmonary disease with (acute) exacerbation (4) Type 2 diabetes mellitus Status: Chronic Current Visit: No Qualifiers: Diabetes mellitus complication status: without complication Diabetes mellitus snf insulin use: without bed bug exterminator use Qualified Code(s): E11.9 - Type 2 diabetes mellitus without complications Infectious Disease - PN: Subj Interval history: Complained of excruciating right foot pain on exam this morning. No other complaints. Has been afebrile. Infectious Disease Exam (PN) - Constitutional Vitals: Temp Pulse Resp BP Pulse Ox 98.5 F 65 18 121/64 96 12/12/16 16:00 12/12/16 16:00 12/12/16 16:00 12/12/16 16:00 12/12/16 16:00 General appearance: no acute distress Exam: General appearance: Was not painful distress when I saw him this morning - Eye Eye exam: Present: EOMI. no icterus Pupils: Present: JESSICA - ENT ENT exam: no oropharyhgeal exudates - Respiratory Respiratory exam: vesicular BS, no crepitations or wheezes - Cardiovascular Cardiovascular exam: regular rate and rhythm, no murmurs - GI/Abdominal GI/Abdominal exam: normal bowel sounds, soft, non-tender, no organomegaly or mass - Extremities Exam Extremities exam: Right foot bandaged - Skin Skin exam: no rash Results - Labs CBC & BMP: 12/12/16 04:08 12/12/16 04:08 Lab Results: I have reviewed the past 24 hour labs (Multiple organisms growing from right foot ulcer) Quality Measures - VTE Contraindication to Mechanical VTE Prophylaxis: Vascular Ulceration
[2016-12-13] MEDS: VANCOMYCIN INJ 1,000 MG in SODIUM CHLORIDE 0.9% 250 ML IV SCH ×2 (02:45→15:09)
[2016-12-13] MEDS: MORPHINE 2 MG/1 ML SYRINGE IV PRN ×5 (02:55→20:55)
[2016-12-13 03:28] LABS: Ferritin 160.8 ng/ml (26-388)
--- NOTE | 2016-12-13 08:36 | Event Note ---
General Surgery Progress Note Chief complaint This patient is a 71-year-old man with peripheral vascular disease who was admitted to the hospital with an infected ulcer of his right medial foot treated with excisional debridement of necrotic tissue and incision and drainage of foot abscess as well as septic metatarsal joint on 12/10/[address] angiogram yesterday did show some outflow disease in the femoral artery and behind the popliteal artery. The patient actually has pretty good runoff on the right leg. We do not have any noninvasives for comparison but he did have an arterial duplex study which confirmed the findings on CTA as an outpatient earlier in November. Physical exam The patient is afebrile with normal vital signs The right foot wound appears clean with there is a significant rim of erythema around the edges of the wound and the bone is starting to develop necrosis. Labs Reviewed Imaging CT angiogram reviewed Assessment and plan CT angiogram suggests the patient has adequate flow to heal a below-knee amputation. He does have some SFA disease and a total occlusion of his behind the popliteal artery but due to the extensive collateral flow that has developed I think it is reasonable to go ahead and proceed with below-knee amputation. I do not believe we need to submit the patient to an arteriogram and angioplasty based on the with CTA looks and the patient is amenable to an amputation which we will set up for tomorrow.
[2016-12-13] MEDS: INSULIN LISPRO 100 UNIT/ML SUBCUT SCH ×4 (08:37→21:02)
[2016-12-13] MEDS: PANTOPRAZOLE 40 MG TABLET PO SCH (09:32)
[2016-12-13] MEDS: FUROSEMIDE 40 MG TABLET PO SCH (09:32)
[2016-12-13] MEDS: CARVEDILOL 6.25 MG TABLET PO SCH ×2 (09:32→21:00)
[2016-12-13] MEDS: POTASSIUM CHLORIDE 10 MEQ TABLET PO SCH (09:32)
[2016-12-13] MEDS: PIPERACILLIN/TAZOBACTAM 3,375 MG in SODIUM CHLORIDE 0.9% 100 ML IV SCH ×2 (09:32→16:49)
[2016-12-13] MEDS: SODIUM HYPOCHLORITE 0.25% IRRIG 473 ML BOTTLE TOP SCH (09:38)
[2016-12-13] MEDS: NICOTINE 21 MG/24 HR PATCH TRANSDERM SCH (09:38)
--- NOTE | 2016-12-13 14:43 | IR History and Physical Update ---
IR Pre-Procedure - History and Physical H&P was reviewed, the patient examined and there: are no changes in the patients condition since last H&P was completed. Reason for procedure:: 71 yo M with severe PAD and infected right foot, Charcot joint. Needs either BKA or AKA. Asked to evaluate right SFA with angio for possible recannulization to allow BKA. - Dictation Physical: refer to H&P completed by admitting physician - Physical Exam Vital Signs: Last Vital Signs Temp 97.3 F L 12/13/16 11:48 Pulse 73 12/13/16 11:48 Resp 20 12/13/16 11:48 BP 120/68 12/13/16 11:48 Pulse Ox 100 12/13/16 11:48 Mental Status: alert and oriented - Sedation IR anesthesia plan for sedation: minimal ASA Class: IV - Risks Risks: Procedures explained. Risks discussed include, but not limited to, the following:[ pain, bleeding] All questions answered. The following alternatives were discussed:[direct to amputation ] Risks and benefits discussed with: patient Consent obtained from: patient Assessment and Plan - Time spent with patient Time spent with patient: Less than 30 minutes
--- NOTE | 2016-12-13 14:45 | Infectious Disease Progress ---
Assessment and Plan (1) Foot ulcer Status: Acute Assessment and plan: Involving he right foot with exposed bone - osteomyelitis and also likely septic arthritis of the right foot. Cultures with multiple organisms. Recommendations: Continue current empiric antibiotics for now and follow-up final cultures. Possible amputation tomorrow. Current Visit: Yes Qualifiers: Laterality: right Non-pressure ulcer stage: with necrosis of bone Qualified Code(s): L97.514 - Non-pressure chronic ulcer of other part of right foot with necrosis of bone (2) Atrial fibrillation Status: Chronic Current Visit: No Qualifiers: Atrial fibrillation type: chronic Qualified Code(s): I48.2 - Chronic atrial fibrillation (3) COPD (chronic obstructive pulmonary disease) Status: Chronic Current Visit: No Qualifiers: COPD type: COPD with acute exacerbation Qualified Code(s): J44.1 - Chronic obstructive pulmonary disease with (acute) exacerbation (4) Type 2 diabetes mellitus Status: Chronic Current Visit: No Qualifiers: Diabetes mellitus complication status: without complication Diabetes mellitus nursing home insulin use: without nursing home use Qualified Code(s): E11.9 - Type 2 diabetes mellitus without complications Infectious Disease - PN: Subj Interval history: Patient still having significant pain to right foot. Apparently considering right below knee amputation. No fever. Tolerating antibiotic without nausea vomiting or diarrhea. Infectious Disease Exam (PN) - Constitutional Vitals: Temp Pulse Resp BP Pulse Ox 97.3 F L 73 20 120/68 100 12/13/16 11:48 12/13/16 11:48 12/13/16 11:48 12/13/16 11:48 12/13/16 11:48 General appearance: no acute distress Exam: General appearance: Was in painful distress when I saw him this morning - Eye Eye exam: Present: EOMI. no icterus Pupils: Present: JESSICA - ENT ENT exam: no oral exudates - GI/Abdominal GI/Abdominal exam: normal bowel sounds, soft, non-tender - Extremities Exam Extremities exam: Right foot bandaged - Skin Skin exam: no rash Results - Labs CBC & BMP: 12/12/16 04:08 12/12/16 04:08 Lab Results: I have reviewed the past 24 hour labs (Klebsiella, Proteus, and Kluyvera growing from wound culture along with gram-positive cocci) - EKG EKG shows: bradycardia Quality Measures - VTE Contraindication to Mechanical VTE Prophylaxis: Vascular Ulceration
[2016-12-13] MEDS: ENOXAPARIN 40 MG/0.4 ML SYRINGE SUBCUT SCH (15:10)
--- NOTE | 2016-12-13 15:44 | Hospitalist Progress Note ---
Assessment and Plan (1) Foot ulcer Status: Acute Assessment and plan: Involving he right foot with exposed bone - osteomyelitis and also likely septic arthritis of the right foot. Cultures with multiple organisms.He is s/p debridement of necrosis and I&D of abscess. Surgery is considering a AKA or BKA in am Continue with IV antibiotics Current Visit: Yes Qualifiers: Laterality: right Non-pressure ulcer stage: with necrosis of bone Qualified Code(s): L97.514 - Non-pressure chronic ulcer of other part of right foot with necrosis of bone (2) COPD (chronic obstructive pulmonary disease) Status: Chronic Assessment and plan: stable Current Visit: No Qualifiers: COPD type: COPD with acute exacerbation Qualified Code(s): J44.1 - Chronic obstructive pulmonary disease with (acute) exacerbation (3) Congestive heart failure Status: Chronic Assessment and plan: stable; euvolemic; EF of 40% with diastolic dysfunction; on lasix and coreg; monitor electrolytes Current Visit: No Qualifiers: Congestive heart failure type: systolic (4) HCV (hepatitis C virus) Status: Chronic Assessment and plan: stable. Chronic Current Visit: No (5) Atrial fibrillation Status: Chronic Assessment and plan: rate is controlled Current Visit: No Qualifiers: Atrial fibrillation type: chronic Qualified Code(s): I48.2 - Chronic atrial fibrillation (6) Type 2 diabetes mellitus Status: Chronic Assessment and plan: stable. [id number] Current Visit: No Qualifiers: Diabetes mellitus complication status: without complication Diabetes mellitus terminal gauger insulin use: without correction use Qualified Code(s): E11.9 - Type 2 diabetes mellitus without complications Hospitalist: Subjective Interval history: Patient seen. He will be going for a BKA or AKA in am. No events overnight. Exam - Constitutional Vitals: Period Temp Pulse Resp BP Sys/Cutler Pulse Ox Last 24 Hr 97.3 F-99.1 F 65-77 18-20 103-131/61-73 96-100 General appearance: no acute distress - Head Head exam: Present: normal inspection - Respiratory Respiratory exam: Present: clear to auscultation bilaterally - Cardiovascular Cardiovascular exam: Present: regular rate and rhythm - GI/Abdominal GI/Abdominal exam: Present: normal bowel sounds - Extremities Exam Extremities exam: Present: other (;eft foot ulcer bandaged) Results - Labs CBC & BMP: 12/12/16 04:08 12/12/16 04:08 Lab Results: I have reviewed the past 24 hour labs Quality Measures - VTE Contraindication to Mechanical VTE Prophylaxis: Vascular Ulceration
[2016-12-13] MEDS: SODIUM CHLORIDE 0.45% 1,000 ML IV SCH (17:06)
[2016-12-13] MEDS: MELATONIN 3 MG TABLET PO PRN (21:00)
[2016-12-14] MEDS ORDERED: MIDAZOLAM 2 MG/2 ML VIAL IV ONE (00:01)
[2016-12-14] MEDS ORDERED: fentaNYL 100 MCG/2 ML VIAL IV ONE (00:01)
[2016-12-14] MEDS ORDERED: DIAZEPAM 5 MG TABLET PO ONE (00:01)
[2016-12-14] MEDS: MORPHINE 2 MG/1 ML SYRINGE IV PRN ×3 (00:27→10:43)
[2016-12-14] MEDS: PIPERACILLIN/TAZOBACTAM 3,375 MG in SODIUM CHLORIDE 0.9% 100 ML IV SCH ×3 (00:28→17:35)
[2016-12-14] MEDS: VANCOMYCIN INJ 1,000 MG in SODIUM CHLORIDE 0.9% 250 ML IV SCH ×2 (02:37→17:27)
[2016-12-14] MEDS ORDERED: ALBUTEROL 2.5 MG/3 ML NEB RESP TX ONE (06:00)
[2016-12-14] MEDS ORDERED: IPRATROPIUM 500 MCG/2.5 ML NEB RESP TX ONE (06:00)
--- NOTE | 2016-12-14 06:09 | EKG Report ---
Stationary ECG Study [facility] Test Date: 12/13/2016 4:44 PM Pat Name: BASSEM REID Department: Room: 520 Gender: M Transplant Registered Nurse: : 1945 Requested by: Fransisco Ken Order Number: [id number] Reading MD: NIMO OBRIEN Intervals [place] Rate: 81 P: 84 MS: 151 QRS: 5 QRSD: 146 T: 34 QT: 404 QTc: 441 Interpretive Statements SINUS RHYTHM WITH OCCASIONAL VENTRICULAR PREMATURE COMPLEXES WITH FREQUENT SUPRAVENTRICULAR PREMATURE COMPLEXES INDETERMINATE AXIS RIGHT BUNDLE BRANCH BLOCK ST DEPRESSION, CONSIDER SUBENDOCARDIAL INJURY Electronically Signed On 12-15-16 14:04:16 CDT by NIMO OBRIEN [email or web address]
[2016-12-14 07:55] LABS: Calcium 8.2 MG/DL (8.5-10.1); Magnesium 1.5 MG/DL (1.8-2.4); Osmolality,Calculated 281.1 MOS/KG (273-304)
[2016-12-14] MEDS ORDERED: HEPARIN/NACL 0.9% 2 UNITS/ML 2,000 ML IV ONE (08:03)
[2016-12-14] MEDS ORDERED: fentaNYL 100 MCG/2 ML VIAL ONE ×2 (08:13→14:53)
[2016-12-14] MEDS ORDERED: MIDAZOLAM 2 MG/2 ML VIAL ONE ×2 (08:13→14:54)
[2016-12-14] MEDS: LORazepam 0.5 MG TABLET PO PRN (08:25)
[2016-12-14] MEDS ORDERED: ROPIVACAINE 0.5% 30 ML VIAL ONE (08:26)
[2016-12-14] MEDS: FUROSEMIDE 40 MG TABLET PO SCH (09:00)
[2016-12-14] MEDS: PANTOPRAZOLE 40 MG TABLET PO SCH (09:00)
--- NOTE | 2016-12-14 09:45 | Post Interventional Procedure ---
Pre-op diagnosis: PAD, infected right foot, preop for AKA vs BKA Post-op diagnosis: same Procedure: Abdominal angiogram w/ runoff, focused angiogram RLE Contrast: Visi 320, 115 cc Flouroscopy: 9.9 min Radiologist: rGayson Carlson Anesthesia: conscious sedation Medications: Versed 2 mg, fentanyl 100 mcg Total Sedation Time: 39 min Specimens: none sent Estimated blood loss: minimal Complications: none Condition: stable Description/Findings: See radiology report. Segmental occlusions of the right SFA, unable to cross with wire, limited outflow to calf Assessment and Plan - Time spent with patient Time spent with patient: Greater than 30 minutes (1) Peripheral vascular disease Status: Chronic Current Visit: Yes
[2016-12-14] MEDS: INSULIN LISPRO 100 UNIT/ML SUBCUT SCH ×4 (10:29→20:00)
[2016-12-14] MEDS: SODIUM HYPOCHLORITE 0.25% IRRIG 473 ML BOTTLE TOP SCH (10:30)
[2016-12-14] MEDS: POTASSIUM CHLORIDE RIDER 10 MEQ in PREMIX 1 EACH IV PRN ×3 (10:31→23:52)
--- NOTE | 2016-12-14 10:33 | Interventional Radiology Rpt ---
IR angio Ext BI Indication: Severe peripheral arterial disease. Infected right foot. Preop evaluation right lower extremity amputation. ABDOMINAL AORTOGRAM WITH BILATERAL LOWER EXTREMITY ANGIOGRAPHY Description: A formal timeout was performed. Maximum sterile barrier technique was instituted. The left common femoral artery was accessed with micropuncture technique. Using Seldinger technique, a flush catheter was situated in the abdominal aorta. Abdominal angiogram with bilateral lower extremity runoff was then performed. The aortic bifurcation was crossed up and over from left to right with a C2 glide catheter which was advanced into the right SFA. Right leg angiogram focused on the SFA, popliteal and proximal tibioperoneal system was then performed. Efforts cross a densely calcified chronic total occlusion of the mid and distal SFA were unsuccessful. Access was removed. Hemostasis was achieved with manual compression. Patient tolerated the procedure well. Contrast: Visipaque 320, 115 cc. Fluoroscopy: 9.9 minutes. Impression: 1. Severe calcified atheromatous disease of the iliofemoral and popliteal system noted bilaterally. Despite diffuse atheromatous disease, no focal stenosis of either iliac system identified. 2. 50% diameter stenosis at the ostium of the right SFA. 2 discrete segmental chronic total occlusions of the mid and distal right SFA, right popliteal artery, and right tibioperoneal trunk. Unable to penetrate the occluded segments with Glidewire and catheter technique. 3. Geniculate branches provide some degree of reconstitution of the proximal anterior and posterior tibialis arteries. The peroneal artery never opacifies. PROCEDURE INTERPRETED AT [facility] DEPARTMENT OF RADIOLOGY Final Report Signed by: Grayson Carlson M.D.
[2016-12-14] MEDS: CARVEDILOL 6.25 MG TABLET PO SCH ×2 (10:43→20:24)
[2016-12-14] MEDS: POTASSIUM CHLORIDE 10 MEQ TABLET PO SCH (10:43)
[2016-12-14] MEDS: NICOTINE 21 MG/24 HR PATCH TRANSDERM SCH (10:46)
[2016-12-14] MEDS ORDERED: PROPOFOL 200 MG/20 ML VIAL IV ONE (13:35)
[2016-12-14] MEDS ORDERED: PHENYLEPHRINE 50 MG/5 ML VIAL ONE (13:35)
[2016-12-14] MEDS ORDERED: ONDANSETRON 4 MG/2 ML VIAL ONE ×2 (13:35→15:07)
[2016-12-14] MEDS ORDERED: LIDOCAINE 2% 5 ML VIAL ONE (13:35)
[2016-12-14] MEDS ORDERED: PHENYLEPHRINE 1 MG/10 ML SYRINGE IV ONE (13:35)
[2016-12-14] MEDS ORDERED: CALCIUM CHLORIDE 1,000 MG/10 ML VIAL IV ONE (13:35)
--- NOTE | 2016-12-14 13:39 | Hospitalist Progress Note ---
Assessment and Plan (1) Foot ulcer Status: Acute Assessment and plan: Involving the right foot with exposed bone - osteomyelitis and also likely septic arthritis of the right foot. Cultures with multiple organisms.He is s/p debridement of necrosis and I&D of abscess. Patient had an abdominal angiogram this am and it showed a segmental occlusions of the right SFA, unable to cross with wire, limited outflow to calf Surgery is considering a AKA or BKA today Continue with IV antibiotics Current Visit: Yes Qualifiers: Laterality: right Non-pressure ulcer stage: with necrosis of bone Qualified Code(s): L97.514 - Non-pressure chronic ulcer of other part of right foot with necrosis of bone (2) COPD (chronic obstructive pulmonary disease) Status: Chronic Assessment and plan: stable Current Visit: No Qualifiers: COPD type: COPD with acute exacerbation Qualified Code(s): J44.1 - Chronic obstructive pulmonary disease with (acute) exacerbation (3) Congestive heart failure Status: Chronic Assessment and plan: stable; euvolemic; EF of 40% with diastolic dysfunction; on lasix and coreg; monitor electrolytes Current Visit: No Qualifiers: Congestive heart failure type: systolic (4) HCV (hepatitis C virus) Status: Chronic Assessment and plan: stable. Chronic Current Visit: No (5) Atrial fibrillation Status: Chronic Assessment and plan: rate is controlled Current Visit: No Qualifiers: Atrial fibrillation type: chronic Qualified Code(s): I48.2 - Chronic atrial fibrillation (6) Type 2 diabetes mellitus Status: Chronic Assessment and plan: stable. [id number] Current Visit: No Qualifiers: Diabetes mellitus complication status: without complication Diabetes mellitus longterm insulin use: without longterm use Qualified Code(s): E11.9 - Type 2 diabetes mellitus without complications Hospitalist: Subjective Interval history: Patient went for an abdominal angiogram this am and this showed a segmental occlusions of the right SFA, unable to cross with wire, limited outflow to calf. He is being scheduled for a possible AKA or BKA today.No major events overnight. Exam - Constitutional Vitals: Period Temp Pulse Resp BP Sys/Cutler Pulse Ox Last 24 Hr 98.1 F-99.3 F 64-89 13-20 97-151/60-87 96-100 General appearance: no acute distress - Head Head exam: Present: normal inspection - Respiratory Respiratory exam: Present: clear to auscultation bilaterally - Cardiovascular Cardiovascular exam: Present: regular rate and rhythm - GI/Abdominal GI/Abdominal exam: Present: normal bowel sounds - Extremities Exam Extremities exam: Present: other (right foot bandaged) Results - Labs CBC & BMP: 12/12/16 04:08 12/14/16 07:15 Lab Results: I have reviewed the past 24 hour labs Quality Measures - VTE Contraindication to Mechanical VTE Prophylaxis: Vascular Ulceration
[2016-12-14 13:51] LABS: Hematocrit 27.5 VOL% (42.0-52.0); Hemoglobin 9.1 GM/DL (14.0-18.0)
[2016-12-14] MEDS ORDERED: CALCIUM CHLORIDE 1,000 MG/10 ML SYRINGE IV ONE (14:53)
[2016-12-14] MEDS ORDERED: LACTATED RINGERS 2,000 ML IV ONE (14:54)
[2016-12-14] MEDS ORDERED: SEVOFLURANE 1 UNIT/15 MINUTE INH ONE (14:54)
--- NOTE | 2016-12-14 15:00 | Event Note ---
Went to see patient twice but was gone each time for procedures. I am stopping vancomycin as only gram negatives isolated from his right foot wound.
--- NOTE | 2016-12-14 15:02 | Operative Note ---
Date of procedure: 12/14/16 Pre-op diagnosis: Right foot septic arthritis with Charcot deformity Post-op diagnosis: same Procedure: Preoperative diagnosis Right foot septic arthritis with Charcot deformity and peripheral vascular disease Postoperative diagnosis Same Procedures performed Right below-knee amputation Findings Healthy tissue is present at the amputation site. Complications None apparent Blood loss 50 mL Indications This patient is a 71-year-old man that was admitted with necrotic wound on his right medial foot. The patient had a Charcot deformity and there was actually pus going into the joint space between his metatarsals and his cuneiform bone. Orthopedic surgery was consulted for an opinion regarding this and they recommended a below-knee amputation. In addition, the patient had peripheral vascular disease and an arteriogram was performed by Dr. Carlson which showed a chronic total occlusion of the distal SFA but good filling around the geniculate arteries and collaterals. These lesions were not amenable to angioplasty and could not be recannulated but the tissues at the plantar below- knee amputation site looked healthy and like they would do well with an amputation. The patient was ambulating before he became to the hospital so we recommended a below-knee amputation. Description of procedure The right leg was prepped with chlorhexidine and draped sterilely after anesthesia was administered. Preoperative antibiotics were administered and timeout was performed. The incision was marked at 10 cm below the tibial tuberosity and myocutaneous flaps were marked out with a marking pen. Incision was made with a 10 blade scalpel. Bovie electrocautery was used to dissected the subcutaneous tissues. The saphenous vein was tied off with silk ties. The muscle was divided with electrocautery down to the tibia which was then divided a centimeter above the skin incision line with an oscillating bone saw. The anterior portion of the bone was angled to prevent pressure necrosis on the stump. The fibula was then identified and divided an inch above the tibial transection site. The vascular bundles were controlled individually with suture ligatures using 3-0 silk sutures. The posterior flaps were then created and the distal incision was made on the distal lower leg posteriorly. The specimen was passed off and sent to pathology. The posterior flap was closed with 2-0 running Vicryl ties on the fascial layer and the skin was reapproximated with skin clips. Sterile dressings were applied. The tissues at the resection margins were healthy and viable and the muscle twitch nicely at this location. The patient's wound was dressed with a bulky compressive dressing and a knee immobilizer was placed. He was transferred to recovery in stable condition. Postoperative plan Pain control and physical therapy Anesthesia: VIOLAA Surgeon / Physician: Luis Antonio Villanueva Estimated blood loss: other (50 mL) Specimens: other (right leg) Condition: stable Disposition: PACU Results - Labs CBC & BMP: 12/14/16 12:37 12/14/16 07:15 Discharge Plan - Discharge Medications No Action Morphine Sulfate [Morphine Sulfate ER] 15 mg PO BEDTIME Methocarbamol Tab [Robaxin Tab] 500 mg PO BID PRN PRN Reason: MUSCLE SPASMS Gabapentin 300 mg PO 0800,1200 traZODone [Desyrel] 150 mg PO BEDTIME Budesonide/Formoterol 160-4.5 [Symbicort 160-4.5] 2 puff INH BID Spironolactone [Aldactone] 25 mg PO DAILY #30 tablet Rifaximin [Xifaxan] 550 mg PO BID Hydrocodone/Acetaminophen [Hydrocodon-Acetaminophn 10-325] 1 tablet PO QID PRN PRN Reason: Pain Carvedilol [Coreg] 6.25 mg PO BID #60 tablet Furosemide Tab [Lasix Tab] 40 mg PO DAILY #30 tablet Valsartan [Diovan] 40 mg PO DAILY #30 tablet Gabapentin 600 mg PO QPM Pantoprazole Sodium 40 mg PO AC SUPPER Albuterol Sulfate [Ventolin HFA] 2 puff INH Q4H PRN PRN Reason: Shortness Of Breath/Wheezing Lactulose Liquid [Chronulac] 160 gm PO DIRECTED dilTIAZem HCl [Diltiazem HCl] 120 mg PO DAILY Collagenase Oint [Santyl Oint] 1 applic TOP DAILY Ipratropium/Albuterol Inhaler [Combivent Respimat Inhaler] 1 puff INH QID #1 inhaler - Follow Up or Referral - Forms/Instructions
[2016-12-14] MEDS ORDERED: ONDANSETRON 4 MG/2 ML VIAL IV PRN (15:05)
[2016-12-14] MEDS ORDERED: HYDROmorphone 2 MG/1 ML VIAL ONE (15:07)
[2016-12-14] MEDS: HYDROmorphone 2 MG/1 ML VIAL IV PRN ×4 (15:07→15:22)
--- NOTE | 2016-12-14 15:08 | Anesthesia Post-Op ---
Anesthesia Post OP - Post Ansesthetic Evaluation Patient seen in post op: Yes Resp: within normal limits CV: within normal limits Mental: within normal limits Temp: within normal limits [id number]: within normal limits Nausea and Vomiting: within normal limits Pain: within normal limits
[2016-12-14] MEDS ORDERED: NALOXONE 0.4 MG/ML VIAL IV PRN (15:41)
[2016-12-14] MEDS: ENOXAPARIN 40 MG/0.4 ML SYRINGE SUBCUT SCH (17:26)
[2016-12-14] MEDS: HYDROmorphone PCA 30 MG/30 ML SYRINGE IV SCH (17:36)
[2016-12-14] MEDS: SODIUM CHLORIDE 0.45% 1,000 ML IV SCH (17:42)
[2016-12-14] MEDS: GABAPENTIN 100 MG CAPSULE PO SCH (20:24)
[2016-12-15] MEDS: LORazepam 0.5 MG TABLET PO PRN ×2 (00:44→08:42)
[2016-12-15] MEDS: POTASSIUM CHLORIDE RIDER 10 MEQ in PREMIX 1 EACH IV PRN ×2 (00:44→01:37)
[2016-12-15] MEDS: PIPERACILLIN/TAZOBACTAM 3,375 MG in SODIUM CHLORIDE 0.9% 100 ML IV SCH ×2 (01:35→09:41)
[2016-12-15] MEDS: MELATONIN 3 MG TABLET PO PRN (01:47)
[2016-12-15 05:48] LABS: Basophils # 0.1 10*3/uL (0.0-0.2); Basophils % 0.7 % (0.0-0.8); Eosinophils # 0.5 10*3/uL (0.0-0.87); Eosinophils % 4.4 % (0.00-10.9); Hematocrit 25.3 VOL% (42.0-52.0); Hemoglobin 8.6 GM/DL (14.0-18.0); Immature Granulocytes % 0.7 %; Immature Granulocytes Absolute 0.08 #; Lymphocytes # 1.8 10*3/uL (1.4-4.0); Lymphocytes % 15.6 % (21.2-54.2); Mean Corpuscular Hemoglobin 36 PG (27-34); Monocytes # 1.4 10*3/uL (0.11-0.8); Monocytes % 11.8 % (1.7-12.7); Neutrophils # 7.8 10*3/uL (1.4-7.4); Neutrophils % 66.8 % (38.7-73.9); Platelet Count 166 T/CUMM (130-400); Red Blood Count 2.41 MC/CUMM (3.8-5.5); White Blood Count 11.6 T/CUMM (4-12)
--- NOTE | 2016-12-15 06:49 | Event Note ---
General Surgery Progress Note Chief complaint This patient is a 71-year-old man admitted with a septic joint with Charcot deformity of the right foot that ultimately was treated with right below-knee amputation on 12/14/2016 Interval history No events overnight. Patient is resting comfortably. Hemoglobin is 8.6 today. His pain is fairly well-controlled but he still having some breakthrough episodes. Physical exam Afebrile with normal vital signs Temp is 99.8 this morning Chest is clear Heart is regular Dressing is clean on right leg There is a hematoma in the left groin that is nonpulsatile and not expanding. There is significant bruising on the thigh and the lower abdominal wall Labs Reviewed Imaging None new Assessment and plan Consult physical therapy and social work for rehab placement Continue pain regimen and gabapentin We will add some Toradol today Continue to monitor left groin access site hematoma but no intervention needed currently
[2016-12-15] MEDS: FUROSEMIDE 40 MG TABLET PO SCH (09:41)
[2016-12-15] MEDS: POTASSIUM CHLORIDE 10 MEQ TABLET PO SCH (09:42)
[2016-12-15] MEDS: GABAPENTIN 100 MG CAPSULE PO SCH ×3 (09:42→20:34)
[2016-12-15] MEDS: KETOROLAC 15 MG/1 ML VIAL IV SCH ×3 (09:42→20:19)
[2016-12-15] MEDS: PANTOPRAZOLE 40 MG TABLET PO SCH (09:42)
[2016-12-15] MEDS: CARVEDILOL 6.25 MG TABLET PO SCH ×2 (09:42→20:20)
[2016-12-15] MEDS ORDERED: ACETAMINOPHEN 325 MG TABLET PO PRN (10:39)
--- NOTE | 2016-12-15 11:19 | Infectious Disease Progress ---
Assessment and Plan (1) Foot ulcer Status: Acute Assessment and plan: Rt foot osteomyelitis and also likely septic arthritis -status post BKA Recommendations: Discontinue antibiotics I will sign off now. Call again as needed. Current Visit: Yes Qualifiers: Laterality: right Non-pressure ulcer stage: with necrosis of bone Qualified Code(s): L97.514 - Non-pressure chronic ulcer of other part of right foot with necrosis of bone (2) Atrial fibrillation Status: Chronic Current Visit: No Qualifiers: Atrial fibrillation type: chronic Qualified Code(s): I48.2 - Chronic atrial fibrillation (3) COPD (chronic obstructive pulmonary disease) Status: Chronic Current Visit: No Qualifiers: COPD type: COPD with acute exacerbation Qualified Code(s): J44.1 - Chronic obstructive pulmonary disease with (acute) exacerbation (4) Type 2 diabetes mellitus Status: Chronic Current Visit: No Qualifiers: Diabetes mellitus complication status: without complication Diabetes mellitus prison insulin use: without prison use Qualified Code(s): E11.9 - Type 2 diabetes mellitus without complications Infectious Disease - PN: Subj Interval history: Patient doing better overall, and better mood since the amputation as his pain is significantly better. No fever. He had right BKA yesterday. Infectious Disease Exam (PN) - Constitutional Vitals: Temp Pulse Resp BP Pulse Ox 101.3 F H 102 H 16 157/100 98 12/15/16 10:56 12/15/16 08:00 12/15/16 08:00 12/15/16 08:00 12/15/16 08:00 General appearance: no acute distress Exam: General appearance: Relatively comfortable - Eye Eye exam: Present: EOMI. no icterus Pupils: Present: JESSICA - ENT ENT exam: no oral exudates - RS clear -CVS normal S1 and S2, no murmurs - GI/Abdominal GI/Abdominal exam: normal bowel sounds, soft, non-tender - Extremities Exam Extremities exam: Right BKA stump is clean bandage - Skin Skin exam: no rash Results - Labs CBC & BMP: 12/15/16 05:26 12/15/16 05:26 Lab Results: I have reviewed the past 24 hour labs (Blood cultures negative) Quality Measures - VTE Contraindication to Mechanical VTE Prophylaxis: Vascular Ulceration
--- NOTE | 2016-12-15 11:28 | Pathology Report from [facility] ---
[facility] ACCESSION # : [id number] PATIENT NAME : Kalin Olivia ORDERING DR : Luis Antonio Villanueva MD CLINICAL HX: Peripheral vascular disease with infected ulcer of right medial foot POST-OP DX: Same SPECIMEN INFO: Right leg below the knee GROSS DESCRIPTION: Received fresh labeled with the patients name KALIN OLIVIA and consists of a right leg below the knee amputation measuring 33.0 cm. The skin is light lima with a 5.5 x 4.5 cm gangrenous ulceration noted along the medial side of the foot. Atherosclerotic changes are identified. Top Frame Fitter sections submitted in one cassette. DIAGNOSIS FOR KALIN OLIVIA: RIGHT LEG, BELOW-KNEE AMPUTATION: Ischemic skin ulceration with cellulitis. Calcified atheromatous occlusive disease. COLLECTED DATE: 12/14/2016 [facility] REPORT DATE: 12/15/2016 ELECTRONICALLY SIGNED BY: Richard Bullock M.D. 12/15/2016 - 9:53:42 MTDD
--- NOTE | 2016-12-15 11:43 | Hospitalist Progress Note ---
Assessment and Plan (1) Foot ulcer Status: Acute Assessment and plan: Involving the right foot with exposed bone - osteomyelitis and also likely septic arthritis of the right foot. Cultures with multiple organisms.He is s/p debridement of necrosis and I&D of abscess. Patient had an abdominal angiogram, it showed a segmental occlusions of the right SFA, unable to cross with wire, limited outflow to calf. He had a BKA yesterday, stump is bandaged and it looks clean. He spiked a temp of 101.3 this am, antibiotics have been stopped Plan -Tylenol prn, BCx2, UA Current Visit: Yes Qualifiers: Laterality: right Non-pressure ulcer stage: with necrosis of bone Qualified Code(s): L97.514 - Non-pressure chronic ulcer of other part of right foot with necrosis of bone (2) COPD (chronic obstructive pulmonary disease) Status: Chronic Assessment and plan: stable Current Visit: No Qualifiers: COPD type: COPD with acute exacerbation Qualified Code(s): J44.1 - Chronic obstructive pulmonary disease with (acute) exacerbation (3) Congestive heart failure Status: Chronic Assessment and plan: stable; euvolemic; EF of 40% with diastolic dysfunction; on lasix, diovan, spironolactone and coreg; monitor electrolytes Current Visit: No Qualifiers: Congestive heart failure type: systolic (4) HCV (hepatitis C virus) Status: Chronic Assessment and plan: stable. Chronic Current Visit: No (5) Atrial fibrillation Status: Chronic Assessment and plan: rate is controlled Current Visit: No Qualifiers: Atrial fibrillation type: chronic Qualified Code(s): I48.2 - Chronic atrial fibrillation (6) Type 2 diabetes mellitus Status: Chronic Assessment and plan: stable. [id number] Current Visit: No Qualifiers: Diabetes mellitus complication status: without complication Diabetes mellitus intermediate teacher insulin use: without intermediate teacher use Qualified Code(s): E11.9 - Type 2 diabetes mellitus without complications (7) HTN (hypertension) Status: Acute Assessment and plan: will resume some home meds-diltiazem, diovan and maybe spironolactone in low doses, follow response Current Visit: Yes Hospitalist: Subjective Interval history: Patient had a right BKA yesterday. Today, he feels better and his stump looks clean. He has started physiotherapy.He spiked a temp of 101.3 this am. Exam - Constitutional Vitals: Period Temp Pulse Resp BP Sys/Cutler Pulse Ox Last 24 Hr 97.9 F-101.3 F 64-102 13-20 113-162/68-110 91-100 General appearance: no acute distress - Head Head exam: Present: normal inspection - Respiratory Respiratory exam: Present: clear to auscultation bilaterally - Cardiovascular Cardiovascular exam: Present: regular rate and rhythm - GI/Abdominal GI/Abdominal exam: Present: normal bowel sounds - Extremities Exam Extremities exam: Present: other (right BKA, stump was bandaged, looks clean) - Neurological Exam Neurological exam: Present: alert, oriented X3 Results - Labs CBC & BMP: 12/15/16 05:26 12/15/16 05:26 Lab Results: I have reviewed the past 24 hour labs Quality Measures - VTE Contraindication to Mechanical VTE Prophylaxis: Vascular Ulceration
[2016-12-15] MEDS ORDERED: VALSARTAN 80 MG TABLET PO SCH (12:00)
[2016-12-15] MEDS: NICOTINE 21 MG/24 HR PATCH TRANSDERM SCH (14:08)
[2016-12-15] MEDS: SODIUM HYPOCHLORITE 0.25% IRRIG 473 ML BOTTLE TOP SCH (14:08)
[2016-12-15] MEDS: INSULIN LISPRO 100 UNIT/ML SUBCUT SCH ×4 (14:08→22:16)
[2016-12-15] MEDS: SODIUM CHLORIDE 0.9% 1,000 ML IV SCH (14:22)
[2016-12-15] MEDS: IRON (CARBONYL) 45 MG TABLET PO SCH (14:29)
[2016-12-15 14:43] LABS: Basophils % 0.3 % (0.0-0.8); Eosinophils # 0.2 10*3/uL (0.0-0.87); Eosinophils % 1.8 % (0.00-10.9); Hematocrit 22.4 VOL% (42.0-52.0); Hemoglobin 7.3 GM/DL (14.0-18.0); Immature Granulocytes % 1.1 %; Immature Granulocytes Absolute 0.13 #; Lymphocytes # 2.1 10*3/uL (1.4-4.0); Lymphocytes % 16.6 % (21.2-54.2); Mean Corpuscular HGB Conc 32.6 GM/DL (32-36); Mean Corpuscular Hemoglobin 35 PG (27-34); Mean Corpuscular Volume 108.7 FL (87-102); Mean Platelet Volume 11.1 FL (9.6-12.0); Monocytes # 1.8 10*3/uL (0.11-0.8); Monocytes % 14.5 % (1.7-12.7); Neutrophils # 8.1 10*3/uL (1.4-7.4); Neutrophils % 65.7 % (38.7-73.9); Platelet Count 143 T/CUMM (130-400); Red Blood Count 2.06 MC/CUMM (3.8-5.5); Red Cell Distribution Width 14.4 % (9.3-17.3); White Blood Count 12.4 T/CUMM (4-12)
[2016-12-15 15:41] LABS: Platelet Estimate Adequate
[2016-12-15] MEDS: ENOXAPARIN 40 MG/0.4 ML SYRINGE SUBCUT SCH (19:37)
[2016-12-15] MEDS: DOCUSATE SODIUM 100 MG CAPSULE PO SCH (20:20)
[2016-12-15] MEDS ORDERED: DILTIAZEM 30 MG TABLET PO SCH (21:00)
[2016-12-15] MEDS ORDERED: SODIUM CHLORIDE 0.9% 500 ML IV ONE (23:30)
[2016-12-16] MEDS: KETOROLAC 15 MG/1 ML VIAL IV SCH ×4 (00:34→18:11)
[2016-12-16 01:28] LABS: Apearance,Urine CLEAR (Clear); Bilirubin,Urine Negative (Negative); Blood, Urine Small mg/dL (Negative); Glucose,Urine (UA) Negative (Negative); Hyaline Casts,Urine 1 /LPF (0-3); Ketones,Urine Negative (Negative); Mucus,Urine Occasional /LPF (Occasional); Nitrite,Urine Negative (Negative); Protein,Urine Negative; RBC,Urine 9 /HPF (0-4); Urine Color Yellow (Yellow); Urine Specific Gravity 1.015 (1.001-1.035); Urine Urobilinogen < 2.0 EU/DL (0.2-1.0); WBC,Urine 2 /HPF (0-6)
[2016-12-16] MEDS: SODIUM CHLORIDE 0.9% 1,000 ML IV SCH ×2 (03:42→19:40)
[2016-12-16 05:12] LABS: Basophils % 0.3 % (0.0-0.8); Eosinophils # 0.4 10*3/uL (0.0-0.87); Eosinophils % 3.4 % (0.00-10.9); Hematocrit 20.5 VOL% (42.0-52.0); Hemoglobin 6.9 GM/DL (14.0-18.0); Immature Granulocytes % 0.7 %; Immature Granulocytes Absolute 0.09 #; Lymphocytes # 2.8 10*3/uL (1.4-4.0); Lymphocytes % 22.1 % (21.2-54.2); Mean Corpuscular HGB Conc 33.7 GM/DL (32-36); Mean Corpuscular Hemoglobin 36 PG (27-34); Mean Corpuscular Volume 107.9 FL (87-102); Mean Platelet Volume 11.5 FL (9.6-12.0); Monocytes # 1.7 10*3/uL (0.11-0.8); Monocytes % 13.9 % (1.7-12.7); Neutrophils # 7.4 10*3/uL (1.4-7.4); Neutrophils % 59.6 % (38.7-73.9); Platelet Count 121 T/CUMM (130-400); Red Cell Distribution Width 14.4 % (9.3-17.3); White Blood Count 12.5 T/CUMM (4-12)
[2016-12-16 05:46] LABS: Calcium 7.6 MG/DL (8.5-10.1); Osmolality,Calculated 281.1 MOS/KG (273-304); Potassium 3.5 MMOL/L (3.5-5.1)
[2016-12-16 06:18] LABS: Platelet Estimate Normal
[2016-12-16 06:19] LABS: Anisocytosis Slight; Microcytosis Slight
[2016-12-16] MEDS: GABAPENTIN 100 MG CAPSULE PO SCH (08:09)
[2016-12-16] MEDS: CARVEDILOL 6.25 MG TABLET PO SCH (08:09)
[2016-12-16] MEDS: POTASSIUM CHLORIDE 10 MEQ TABLET PO SCH (08:09)
[2016-12-16] MEDS: LORazepam 0.5 MG TABLET PO PRN (08:10)
[2016-12-16] MEDS: DOCUSATE SODIUM 100 MG CAPSULE PO SCH ×2 (08:10→21:00)
[2016-12-16] MEDS: PANTOPRAZOLE 40 MG TABLET PO SCH (08:10)
[2016-12-16] MEDS: NICOTINE 21 MG/24 HR PATCH TRANSDERM SCH (08:10)
[2016-12-16] MEDS ORDERED: MAGNESIUM SULF RIDER 2 GM in PREMIX 1 EACH IV ONE (08:50)
[2016-12-16] MEDS ORDERED: SODIUM CHLORIDE 0.9% 250 ML IV PRN (08:55)
[2016-12-16] MEDS ORDERED: SPIRONOLACTONE 25 MG TABLET PO SCH (09:00)
[2016-12-16] MEDS ORDERED: GABAPENTIN 100 MG CAPSULE PO SCH (09:44)
[2016-12-16] MEDS: SODIUM HYPOCHLORITE 0.25% IRRIG 473 ML BOTTLE TOP SCH (11:00)
--- NOTE | 2016-12-16 11:20 | Event Note ---
He had a fever last night but notes no new pain or changes with his amputation stump. I took his dressing down and his surgical sites look good. I see no evidence of wound infection.
[2016-12-16] MEDS: INSULIN LISPRO 100 UNIT/ML SUBCUT SCH ×4 (12:03→22:09)
[2016-12-16] MEDS ORDERED: POLYVINYL ALCOHOL 1.4% OPH SOLN 15 ML BOTTLE BOTH EYES PRN (12:07)
[2016-12-16] MEDS: oxyCODONE/ACETAMINOPHEN 5-325 MG TABLET PO SCH ×4 (12:29→22:10)
[2016-12-16] MEDS: IRON (CARBONYL) 45 MG TABLET PO SCH (12:29)
--- NOTE | 2016-12-16 14:19 | Hospitalist Progress Note ---
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 His BP is ok now and he is mentating well. hold antiHTN, stop GANG DRILL PRESS OPERATOR, transfuse. 2)diabetic foot ulcer with osteo and BKA- 2 days ago. 3)phantom pain in amputated limb- neurontin started yesterday at much lower doses than he had been on at home so I will resume his usual home doses. 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 4)COPD- controlled 5)afib- rate ok 6)T2DM- controlled. glucose 104. HGB A1C 4.3- by definition his diabetes is resolved. no meds for diabetes on his home list. 7)home meds reconciled. Current Visit: Yes (2) Diabetic foot ulcer with osteomyelitis Status: Acute Current Visit: Yes (3) Atrial fibrillation with RVR Status: Chronic Current Visit: No (4) COPD (chronic obstructive pulmonary disease) Status: Chronic Current Visit: No Qualifiers: COPD type: COPD with acute exacerbation Qualified Code(s): J44.1 - Chronic obstructive pulmonary disease with (acute) exacerbation (5) Congestive heart failure Status: Chronic Current Visit: No Qualifiers: Congestive heart failure type: systolic (6) HCV (hepatitis C virus) Status: Chronic Current Visit: No (7) Type 2 diabetes mellitus Status: Chronic Current Visit: No Qualifiers: Diabetes mellitus complication status: without complication Diabetes mellitus alf insulin use: without bumboater use Qualified Code(s): E11.9 - Type 2 diabetes mellitus without complications (8) HTN (hypertension) Status: Acute Current Visit: Yes Hospitalist: Subjective Interval history: Mr Hoffman is ok this morning, but complains of pain. His has been on the phone with the nurse off and on since yesterday, tearful because she thinks he has an addiction to pain meds. He is eating well, BP is ok. H&H dropped yesterday and we are transfusing today. Exam - Constitutional Vitals: Period Temp Pulse Resp BP Sys/Cutler Pulse Ox Last 24 Hr 98.0 F-100.6 F 71-94 12-25 74-140/41-68 65-100 General appearance: normal weight, no acute distress - Eye Eye exam: Present: EOMI. Absent: scleral icterus Pupils: Present: JESSICA - Respiratory Respiratory exam: Present: clear to auscultation bilaterally - Cardiovascular Cardiovascular exam: Present: regular rate and rhythm - GI/Abdominal GI/Abdominal exam: Present: normal bowel sounds, soft. Absent: tenderness - Extremities Exam Extremities exam: Present: other (bruising in groin at site of angiogram.). Absent: edema - Neurological Exam Neurological exam: Present: alert, oriented X3 (sitting up in bed. ), CN II-XII intact. Absent: motor sensory deficit - Skin Skin exam: Present: warm, dry Results - Labs CBC & BMP: 12/16/16 05:03 12/16/16 05:03 Lab Results: I have reviewed the past 24 hour labs Quality Measures - VTE Contraindication to Mechanical VTE Prophylaxis: Vascular Ulceration
[2016-12-16] MEDS: ENOXAPARIN 40 MG/0.4 ML SYRINGE SUBCUT SCH (15:22)
[2016-12-16] MEDS: HYDROmorphone PCA 30 MG/30 ML SYRINGE IV SCH (15:41)
[2016-12-16] MEDS: BUDESONIDE/FORMOTEROL 160-4.5 INHALER 6 GM INH SCH ×2 (17:04→21:15)
[2016-12-16] MEDS: GABAPENTIN 300 MG CAPSULE PO SCH (18:09)
[2016-12-16] MEDS: MORPHINE ER 15 MG TABLET PO SCH (20:55)
[2016-12-17] MEDS: KETOROLAC 15 MG/1 ML VIAL IV SCH ×4 (01:15→18:34)
[2016-12-17] MEDS: oxyCODONE/ACETAMINOPHEN 5-325 MG TABLET PO SCH ×6 (01:16→22:06)
[2016-12-17] MEDS: HYDROmorphone 2 MG/1 ML VIAL IV PRN ×4 (02:59→22:03)
[2016-12-17 06:02] LABS: Basophils # 0.1 10*3/uL (0.0-0.2); Basophils % 0.5 % (0.0-0.8); Eosinophils # 0.5 10*3/uL (0.0-0.87); Eosinophils % 4.1 % (0.00-10.9); Hemoglobin 9.3 GM/DL (14.0-18.0); Immature Granulocytes Absolute 0.11 #; Lymphocytes # 1.4 10*3/uL (1.4-4.0); Lymphocytes % 12.6 % (21.2-54.2); Mean Corpuscular HGB Conc 33.2 GM/DL (32-36); Mean Corpuscular Hemoglobin 34 PG (27-34); Mean Corpuscular Volume 102.6 FL (87-102); Mean Platelet Volume 11.7 FL (9.6-12.0); Monocytes # 1.2 10*3/uL (0.11-0.8); Monocytes % 10.3 % (1.7-12.7); Neutrophils # 8.1 10*3/uL (1.4-7.4); Neutrophils % 71.5 % (38.7-73.9); Platelet Count 126 T/CUMM (130-400); Red Blood Count 2.73 MC/CUMM (3.8-5.5); Red Cell Distribution Width 17.9 % (9.3-17.3); White Blood Count 11.3 T/CUMM (4-12)
[2016-12-17] MEDS: SODIUM CHLORIDE 0.9% 1,000 ML IV SCH ×2 (06:20→08:54)
[2016-12-17] MEDS: POTASSIUM CHLORIDE RIDER 10 MEQ in PREMIX 1 EACH IV PRN (06:21)
[2016-12-17 06:28] LABS: Calcium 7.5 MG/DL (8.5-10.1); Magnesium 2.1 MG/DL (1.8-2.4); Osmolality,Calculated 283.1 MOS/KG (273-304); Potassium 3.9 MMOL/L (3.5-5.1)
[2016-12-17] MEDS: POTASSIUM CHLORIDE 10 MEQ TABLET PO SCH (08:33)
[2016-12-17] MEDS: GABAPENTIN 300 MG CAPSULE PO SCH ×3 (08:33→18:34)
[2016-12-17] MEDS: DOCUSATE SODIUM 100 MG CAPSULE PO SCH ×2 (08:34→22:02)
[2016-12-17] MEDS: IRON (CARBONYL) 45 MG TABLET PO SCH (08:34)
[2016-12-17] MEDS: PANTOPRAZOLE 40 MG TABLET PO PRN (08:34)
[2016-12-17] MEDS: NICOTINE 21 MG/24 HR PATCH TRANSDERM SCH (08:39)
[2016-12-17] MEDS: SODIUM HYPOCHLORITE 0.25% IRRIG 473 ML BOTTLE TOP SCH (08:39)
[2016-12-17] MEDS: INSULIN LISPRO 100 UNIT/ML SUBCUT SCH ×4 (08:40→22:03)
[2016-12-17] MEDS: BUDESONIDE/FORMOTEROL 160-4.5 INHALER 6 GM INH SCH ×2 (08:41→22:03)
--- NOTE | 2016-12-17 10:16 | Event Note ---
He feels better. He is no longer having fever. His vital signs are stable. His stump is okay. It does not appear to be infected.
--- NOTE | 2016-12-17 11:17 | Hospitalist Progress Note ---
Assessment and Plan (1) Phantom pain after amputation of lower extremity Status: Acute Assessment and plan: 1)hypotension- resolved with transfusion and stopping the Dilaudid VACUUM TESTER CANS and holding his home antiHTNs. 2)diabetic foot ulcer with osteo and BKA- 3 days ago. Post op fever- likely atelectasis, doing well now, monitor. No sign of infection. 3)phantom pain in amputated limb- neurontin at his usual home doses has helped. Conitnue oral percocet and IV dilaudid for breakthrough. 4)COPD- controlled 5)afib- rate ok 6)T2DM- controlled. glucose 104. HGB A1C 4.3- by definition his diabetes is resolved. no meds for diabetes on his home list. 7)home meds reconciled. Current Visit: Yes (2) Diabetic foot ulcer with osteomyelitis Status: Acute Current Visit: Yes (3) Atrial fibrillation with RVR Status: Chronic Current Visit: No (4) COPD (chronic obstructive pulmonary disease) Status: Chronic Current Visit: No Qualifiers: COPD type: COPD with acute exacerbation Qualified Code(s): J44.1 - Chronic obstructive pulmonary disease with (acute) exacerbation (5) Congestive heart failure Status: Chronic Current Visit: No Qualifiers: Congestive heart failure type: systolic (6) HCV (hepatitis C virus) Status: Chronic Current Visit: No (7) Type 2 diabetes mellitus Status: Chronic Current Visit: No Qualifiers: Diabetes mellitus complication status: without complication Diabetes mellitus usp insulin use: without termite control representative use Qualified Code(s): E11.9 - Type 2 diabetes mellitus without complications (8) HTN (hypertension) Status: Acute Current Visit: Yes Hospitalist: Subjective Interval history: Mr Olivia feels much better- his pain is back under better control now that he is on his home doses of neurontin. He continues to use oral pain meds as well. He denies shortness of breath or pain other than in amputated leg. After transfusion yesterday his BP miguel to normal range. No sign of bleeding. He had some intermittent fever yesterday but none since. Antibiotics stopped day before. He has no focal complaints or sources of infection. His wound looks good. Observe. Exam - Constitutional Vitals: Period Temp Pulse Resp BP Sys/Cutler Pulse Ox Last 24 Hr 98.0 F-99.8 F 72-85 12-24 89-123/41-78 93-100 General appearance: normal weight, no acute distress - Head Head exam: Present: normocephalic, atraumatic - Eye Eye exam: Present: EOMI. Absent: scleral icterus - Respiratory Respiratory exam: Present: clear to auscultation bilaterally - Cardiovascular Cardiovascular exam: Present: regular rate and rhythm - GI/Abdominal GI/Abdominal exam: Present: normal bowel sounds, soft. Absent: tenderness - Extremities Exam Extremities exam: Present: other (right stump dressed and dry). Absent: edema - Neurological Exam Neurological exam: Present: alert, oriented X3 Results - Labs CBC & BMP: 12/17/16 05:17 12/17/16 05:17 Lab Results: I have reviewed the past 24 hour labs Quality Measures - VTE Contraindication to Mechanical VTE Prophylaxis: Vascular Ulceration
[2016-12-17] MEDS: ENOXAPARIN 40 MG/0.4 ML SYRINGE SUBCUT SCH (14:08)
[2016-12-17] MEDS: MORPHINE ER 15 MG TABLET PO SCH (22:02)
[2016-12-17] MEDS: MELATONIN 3 MG TABLET PO PRN (22:02)
[2016-12-18] MEDS: KETOROLAC 15 MG/1 ML VIAL IV SCH ×4 (01:31→19:21)
[2016-12-18] MEDS: oxyCODONE/ACETAMINOPHEN 5-325 MG TABLET PO SCH ×6 (01:31→22:14)
[2016-12-18] MEDS: HYDROmorphone 2 MG/1 ML VIAL IV PRN (06:23)
[2016-12-18] MEDS: INSULIN LISPRO 100 UNIT/ML SUBCUT SCH ×4 (08:41→20:23)
[2016-12-18] MEDS: IRON (CARBONYL) 45 MG TABLET PO SCH (09:26)
[2016-12-18] MEDS: DOCUSATE SODIUM 100 MG CAPSULE PO SCH ×2 (09:26→20:29)
[2016-12-18] MEDS: GABAPENTIN 300 MG CAPSULE PO SCH ×3 (09:26→19:18)
[2016-12-18] MEDS: PANTOPRAZOLE 40 MG TABLET PO PRN (09:27)
[2016-12-18] MEDS: POTASSIUM CHLORIDE 10 MEQ TABLET PO SCH (09:28)
[2016-12-18] MEDS: NICOTINE 21 MG/24 HR PATCH TRANSDERM SCH (09:28)
--- NOTE | 2016-12-18 09:28 | Event Note ---
He feels much better. He has no complaints today. His pain is better controlled. He has no fever. His stump has a normal postoperative appearance without any obvious signs of infection.
[2016-12-18] MEDS: BUDESONIDE/FORMOTEROL 160-4.5 INHALER 6 GM INH SCH ×2 (09:29→20:29)
[2016-12-18] MEDS: SODIUM HYPOCHLORITE 0.25% IRRIG 473 ML BOTTLE TOP SCH (09:29)
--- NOTE | 2016-12-18 12:11 | Hospitalist Progress Note ---
Assessment and Plan - Time spent with patient Time spent with patient: Greater than 30 minutes (1) Diabetic foot ulcer with osteomyelitis Status: Acute Assessment and plan: Continue current management. Current Visit: Yes (2) HTN (hypertension) Status: Acute Assessment and plan: Continue current management. Current Visit: Yes (3) Atrial fibrillation Status: Chronic Assessment and plan: Appears to be in sinus continue current management. Current Visit: No Qualifiers: Atrial fibrillation type: chronic Qualified Code(s): I48.2 - Chronic atrial fibrillation (4) COPD (chronic obstructive pulmonary disease) Status: Chronic Assessment and plan: Continue current management. Current Visit: No Qualifiers: COPD type: COPD with acute exacerbation Qualified Code(s): J44.1 - Chronic obstructive pulmonary disease with (acute) exacerbation (5) Congestive heart failure Status: Chronic Assessment and plan: Continue current management. Current Visit: No Qualifiers: Congestive heart failure type: systolic (6) HCV (hepatitis C virus) Status: Chronic Current Visit: No (7) Type 2 diabetes mellitus Status: Chronic Assessment and plan: Continue current management. Current Visit: No Qualifiers: Diabetes mellitus complication status: without complication Diabetes mellitus half-way insulin use: without half-way use Qualified Code(s): E11.9 - Type 2 diabetes mellitus without complications Hospitalist: Subjective Interval history: No complaints or overnight events. Exam - Constitutional Vitals: Period Temp Pulse Resp BP Sys/Cutler Pulse Ox Last 24 Hr 97.1 F-97.8 F 62-85 16-18 108-122/58-69 95-100 General appearance: no acute distress - Head Head exam: Present: normocephalic, atraumatic - Eye Eye exam: Present: EOMI Pupils: Present: JESSICA - ENT ENT exam: Present: normal exam - Neck Neck exam: Present: normal inspection - Respiratory Respiratory exam: Present: clear to auscultation bilaterally. Absent: rhonchi, wheezes - Cardiovascular Cardiovascular exam: Present: regular rate and rhythm, systolic murmur. Absent : gallop, rubs - GI/Abdominal GI/Abdominal exam: Present: normal bowel sounds, soft. Absent: distended, firm , guarding, tenderness, rebound - Extremities Exam Extremities exam: Present: other (right BKA). Absent: calf tenderness, edema Results - Labs CBC & BMP: 12/17/16 05:17 12/17/16 05:17 Lab Results: I have reviewed the past 24 hour labs Quality Measures - VTE Contraindication to Mechanical VTE Prophylaxis: Vascular Ulceration
[2016-12-18] MEDS: LORazepam 2 MG/1 ML VIAL IV PRN (12:56)
[2016-12-18] MEDS: ENOXAPARIN 40 MG/0.4 ML SYRINGE SUBCUT SCH (14:52)
[2016-12-18] MEDS: MORPHINE ER 15 MG TABLET PO SCH (20:29)
[2016-12-19] MEDS: KETOROLAC 15 MG/1 ML VIAL IV SCH ×3 (00:16→12:12)
[2016-12-19] MEDS: LORazepam 2 MG/1 ML VIAL IV PRN (00:16)
[2016-12-19] MEDS: oxyCODONE/ACETAMINOPHEN 5-325 MG TABLET PO SCH ×3 (03:55→11:33)
[2016-12-19] MEDS: HYDROmorphone 2 MG/1 ML VIAL IV PRN (04:05)
[2016-12-19] MEDS: INSULIN LISPRO 100 UNIT/ML SUBCUT SCH ×2 (07:54→11:44)
[2016-12-19] MEDS: GABAPENTIN 300 MG CAPSULE PO SCH ×2 (08:55→12:12)
[2016-12-19] MEDS: DOCUSATE SODIUM 100 MG CAPSULE PO SCH (08:55)
[2016-12-19] MEDS: IRON (CARBONYL) 45 MG TABLET PO SCH (08:56)
[2016-12-19] MEDS: POTASSIUM CHLORIDE 10 MEQ TABLET PO SCH (08:56)
[2016-12-19] MEDS: SODIUM HYPOCHLORITE 0.25% IRRIG 473 ML BOTTLE TOP SCH (08:57)
[2016-12-19] MEDS: BUDESONIDE/FORMOTEROL 160-4.5 INHALER 6 GM INH SCH (08:58)
[2016-12-19] MEDS: NICOTINE 21 MG/24 HR PATCH TRANSDERM SCH (08:58)
--- NOTE | 2016-12-19 10:06 | Event Note ---
He remains afebrile. Looked at his stump again and his wound is okay. There is some postoperative change anteriorly where the amputation was performed which I do not think is infectious. This is been stable in appearance over the last several days.
--- NOTE | 2016-12-19 10:08 | Discharge Summary ---
Hospital Course - Hospital Course Hospital Course: Osteomyelitis and septic arthritis of the right foot: Mr. Olivia presented with right foot pain and was admitted for evaluation of a foot ulcer. He was initiated on IV Vancomycin. Patient was seen in consultation by surgery and was taken to the OR for an incision and drainage of right forefoot abscess, excisional debridement of necrotic skin and subcutaneous tissue, and arthrotomy with drainage of septic joint of left forefoot. Orthopedics was consulted, and given the Charcot deformity with likely underlying osteomyelitis recommended a below-knee amputation. Infectious disease was consulted and added IV Zosyn to his regimen. Patient had a CT angiography of the abdomen and small system. This revealed vascular calcification of the aortic iliac vessels and moderate to high-grade narrowing within the external iliac arteries bilaterally. He had complete occlusion of the right SFA and proximal segment of popliteal artery. Interventional radiology performed a abdominal aortogram with bilateral lower extremity angiography. This revealed severe calcified atheromatous disease of the iliofemoral popliteal system bilaterally. In addition 50% diameter stenosis of the ostium of the right SFA. Based on these results, general surgery decided to perform a right [id number] amputation. Antibiotics were discontinued post amputation. Surgical wound was clean, clear and intact on discharge. He had met maximum benefit of hospitalization. I spent 42 minutes coordinating this discharge. Atrial fibrillation: Initially he was continued on his home medications of Coreg and Diltiazem however this was discontinued given his hypotension. His blood pressure was monitored, post-discontinuation, and continued to remain low. At discharge his rate controlling medications had to be held. Patient will follow-up with his primary care provider and/or application integration specialist for reevaluation. - Time spent with patient Time with patient DS: Greater than 30 minutes Diagnosis - Discharge Diagnosis (1) Diabetic foot ulcer with osteomyelitis Status: Acute (2) HTN (hypertension) Status: Acute (3) Atrial fibrillation Status: Chronic (4) COPD (chronic obstructive pulmonary disease) Status: Chronic (5) Congestive heart failure Status: Chronic (6) HCV (hepatitis C virus) Status: Chronic (7) Type 2 diabetes mellitus Status: Chronic Discharge Plan - Discharge Data Disposition: Disch/Xfer-[facility] Term Hos Condition at Discharge: Stable Discharge Diet: advance to your usual diet - Discharge Medications New Docusate Sodium Cap [Colace Cap] 100 mg PO BID capsule Iron (Carbonyl) [Feosol Natural Release Tab] 45 mg PO DAILY tablet Nicotine 21 mg/24 Hr Patch [Nicoderm CQ 21 mg/24 hr Patch] 1 patch TRANSDERM DAILY patch oxyCODONE/ACETAMINOPHEN 5-325 [Percocet 5-325] 2 tablet PO Q4H #10 tablet Continue Gabapentin 300 mg PO 0800,1200 Budesonide/Formoterol 160-4.5 [Symbicort 160-4.5] 2 puff INH BID Spironolactone [Aldactone] 25 mg PO DAILY #30 tablet Rifaximin [Xifaxan] 550 mg PO BID Furosemide Tab [Lasix Tab] 40 mg PO DAILY #30 tablet Gabapentin 600 mg PO QPM Morphine Sulfate [Morphine Sulfate ER] 15 mg PO BEDTIME #10 tablet Discontinued Methocarbamol Tab [Robaxin Tab] 500 mg PO BID PRN PRN Reason: MUSCLE SPASMS traZODone [Desyrel] 150 mg PO BEDTIME Hydrocodone/Acetaminophen [Hydrocodon-Acetaminophn 10-325] 1 tablet PO QID PRN PRN Reason: Pain Carvedilol [Coreg] 6.25 mg PO BID #60 tablet Valsartan [Diovan] 40 mg PO DAILY #30 tablet Pantoprazole Sodium 40 mg PO AC SUPPER Albuterol Sulfate [Ventolin HFA] 2 puff INH Q4H PRN PRN Reason: Shortness Of Breath/Wheezing Lactulose Liquid [Chronulac] 160 gm PO DIRECTED dilTIAZem HCl [Diltiazem HCl] 120 mg PO DAILY Collagenase Oint [Santyl Oint] 1 applic TOP DAILY Ipratropium/Albuterol Inhaler [Combivent Respimat Inhaler] 1 puff INH QID #1 inhaler - Follow Up or Referral - Forms/Instructions Instructions: Below the Knee Amputation (DC) Exam - Constitutional Vitals: Period Temp Pulse Resp BP Sys/Cutler Pulse Ox Last 24 Hr 96.9 F-98.7 F 60-97 14-20 96-132/50-75 94-100 General appearance: normal weight, no acute distress - Head Head exam: Present: normal inspection, normocephalic, atraumatic - Eye Eye exam: Present: EOMI Pupils: Present: JESSICA - ENT ENT exam: Present: normal exam - Neck Neck exam: Present: normal inspection - Respiratory Respiratory exam: Present: clear to auscultation bilaterally. Absent: accessory muscle use, prolonged expiratory phase, wheezes - Cardiovascular Cardiovascular exam: Present: regular rate and rhythm, systolic murmur. Absent : bradycardia, irregular rhythm - GI/Abdominal GI/Abdominal exam: Present: normal bowel sounds. Absent: ascites, distended, hypoactive bowel sounds, tenderness - Extremities Exam Extremities exam: Present: normal inspection, other (Right BKA, c/c/i, no drainage, no e/o infection) Discharge Results Procedures and tests throughout hospitalization: Pending Orders 12/15/16 06:30 Occult Blood, Stool Routine 12/15/16 10:59 Blood Culture Stat Labs on day of discharge: Labs from last 24 hours 12/18/16 17:12 POC Glucose 127 H Preliminary micro results at discharge 12/15/16 10:59 Blood Culture - Preliminary Blood No growth at 3 days 12/15/16 10:59 Blood Culture - Preliminary Blood No growth at 3 days DS: Provider Date of admission: 12/08/16 17:28 Primary care physician: Yifan Holguin DO Attending physician on admission: Grayson Matta MD Consults: 12/08/16 17:31 Consult to Wound Care - [place] [CONS] Routine Reason for Wound Care: Wound Care Management 12/08/16 17:41 Consult to Case Mgmt/Social Srvs [CONS] Routine Reason for Case Mgmt/Social Srvs: Discharge Planning 12/08/16 18:23 Consult to Physician [CONS] Routine Comment: right necrotic wound with underlying abscess Consulting Provider: Luis Antonio Villanueva When should Consulting Provider be notified: Now Person Notified: md camacho Date Notified: 12/09/16 Time Notified: 12:01 12/09/16 11:17 Consult to Pharmacy [CONS] Routine Reason for Pharmacy Consult: Dose/Manage Vancomycin 12/10/16 13:49 Consult to Case Mgmt/Social Srvs [CONS] Routine Reason for Case Mgmt/Social Srvs: Rehab Consult Comment: IV abx and rehab and wound care 12/10/16 14:00 Consult to Physician [CONS] Routine Comment: IV abx septic joint and abscess Consulting Provider: Debi Monreal When should Consulting Provider be notified: Now Person Notified: SOSA Date Notified: 12/11/16 Time Notified: 09:07 Consult to Sleep Center [CONS] Routine Reason for Sleep Center: Sleep Center Physician Consult Comment: luis antonio 12/10/16 14:57 Consult to Physician [CONS] Routine Comment: Consulting Provider: Aurelio Isaacs Consult Notification Comment: Dr. Villanueva spoke to Dr. Isaacs about the case 12/11/16 06:46 Consult to Physician [CONS] Routine Comment: charcot deformity right foot with infection Consulting Provider: Aurelio Isaacs Person Notified: MD AWARE Date Notified: 12/11/16 Time Notified: 08:48 12/15/16 06:51 Consult to Case Mgmt/Social Srvs [CONS] Routine Reason for Case Mgmt/Social Srvs: Rehab Consult to Physical Therapy [CONS] Routine Reason for Physical Therapy: Evaluate and Treat 12/18/16 09:09 Consult to Occupational Therapy [CONS] Routine Reason for Occupational Therapy: Evaluate and Treat Other Consult Comment: s/p right BKA Discharging clinician: Octavia Dennis MD Expected date of discharge: 12/19/16
[2016-12-19 11:20] VITALS: BP 120/72
== END 2016-12-19 13:01 | DRG 617 ==
LOC: N.ED 14:12 → SUATTDRO 17:28 → N.EDINP 17:28 → N.5E 18:23 → N.CC 12-15 15:07 → N.3E 12-17 11:48
PROVIDERS: ADMIT Student in an Organized Health Care Education/Training Program; ATTEND Internal Medicine

== ENCOUNTER 2017-02-19 08:05 | Inpatient (IN) ==
[2017-02-15 13:51] LABS: Basophils # 0.1 10*3/uL (0.0-0.2); Basophils % 0.7 % (0.0-0.8); Eosinophils # 0.2 10*3/uL (0.0-0.87); Eosinophils % 2.2 % (0.00-10.9); Hematocrit 34.1 VOL% (42.0-52.0); Hemoglobin 11.4 GM/DL (14.0-18.0); Immature Granulocytes % 0.4 %; Immature Granulocytes Absolute 0.04 #; Lymphocytes # 1.5 10*3/uL (1.4-4.0); Mean Corpuscular HGB Conc 33.4 GM/DL (32-36); Mean Corpuscular Hemoglobin 37 PG (27-34); Mean Corpuscular Volume 109.3 FL (87-102); Mean Platelet Volume 11.1 FL (9.6-12.0); Monocytes # 1.4 10*3/uL (0.11-0.8); Monocytes % 14.5 % (1.7-12.7); Neutrophils # 6.7 10*3/uL (1.4-7.4); Neutrophils % 67.2 % (38.7-73.9); Platelet Count 140 T/CUMM (130-400); Red Blood Count 3.12 MC/CUMM (3.8-5.5); White Blood Count 9.9 T/CUMM (4-12)
[2017-02-15 14:17] LABS: Calcium 9.9 MG/DL (8.5-10.1); Osmolality,Calculated 281.3 MOS/KG (273-304); Potassium 4.9 MMOL/L (3.5-5.1)
[~2017-02-19 08:05] MED LIST: CLINDAMYCIN INJ 900 MG in PREMIX 1 EACH IV ONE
--- NOTE | 2017-02-19 08:12 | History and Physical Update ---
History and Physical Update - History and Physical H&P was reviewed, the patient examined and there: are no changes in the patients condition since last H&P was completed. - Dictation Physical: refer to scanned H&P
--- NOTE | 2017-02-19 08:29 | EKG Report ---
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
[2017-02-19] MEDS ORDERED: CLINDAMYCIN INJ 50 ML IV ONE (08:39)
[2017-02-19] MEDS ORDERED: LACTATED RINGERS 1,000 ML IV SCH (09:00)
[2017-02-19] MEDS ORDERED: ROPIVACAINE 0.5% 30 ML VIAL ONE (10:38)
--- NOTE | 2017-02-19 10:52 | Operative Note ---
Date of procedure: 02/19/17 Pre-op diagnosis: Infected open wound right below-knee amputation stump Post-op diagnosis: same Procedure: Preoperative diagnosis Infected right below-knee amputation stump with open wound Postoperative diagnosis Same Procedures performed Right above-knee amputation Findings There was some edema of the tissue planes. There is no necrotic tissue. There was healthy viable tissue at the amputation site. There is good blood supply at this level but the superficial femoral artery was chronically occluded. Blood loss 300 mL Anesthesia GETA Complications None apparent Specimen Right leg Indications This patient is a 71-year-old man who recently underwent a right below-knee amputation for septic arthritis in his right foot with nonsalvageable foot per orthopedic surgery consultation. The patient also had peripheral vascular disease and on his angiogram had disease in his superficial femoral artery. The case was reviewed with interventional radiology and vascular surgery who felt that the chances of revascularization were low and that the risk of revascularization was not worth the benefit since the orthopedic surgery and general surgery team myself) felt that the foot infection was something that could not be salvaged with anything except a below-knee amputation. Revascularization attempts were thought to be too risky and not enough benefit for below-knee amputation and a primary below-knee amputation was recommended to the patient with the understanding that if it did not heal an above knee amputation would be necessary. We attempted a below-knee amputation and unfortunately the wound dehisced and developed a wound that was not healing. The patient also had ischemic pain of his stump and spreading erythema and because of this and because of the underlying vascular disease, the patient requested an above-knee amputation to expedite his recovery and treat his infection. I thought this was definitely the most reasonable approach to his condition. I have discussed the risks, benefits, and alternatives of the amputation with patient in detail. I have discussed specifically the risk of chronic pain, phantom limb pain, infection, bleeding, and need for higher amputation. The patient understands these risks and would like to proceed with the operation. Description of procedure The patient was taken to the operating room and transferred to the operating table in the supine position. Pressure points were padded and general anesthesia was administered. The right leg was prepped with Betadine and draped sterilely. Preoperative antibiotics were administered, and a timeout was performed. A fishmouth incision was marked out above the patella with a marking pen and a scalpel was used to make the incision. Electrocautery was used to dissected through subcutaneous tissues. The sartorius muscle was divided and the neurovascular bundle was exposed. The femoral artery and vein were ligated with suture ligature using 2-0 silk sutures. The posterior nerve was divided high and tied off with a 2-0 Vicryl tie. The wound was irrigated after the femur was transected with a bone saw 10 cm above the myocutaneous flap incision. The edges of the bone were filed down to prevent pressure wounds. The wound was then closed with a 2-0 Vicryl running fascial closure and the skin was closed with skin clips. A sterile dressing was applied. The patient was awakened from anesthesia and transferred to recovery. Postoperative plan Rehabilitation and physical therapy Anesthesia: LEIGH Surgeon / Physician: Luis Antonio Villanueva Estimated blood loss: minimal Specimens: other (right leg) Condition: stable Disposition: PACU Results - Labs CBC & BMP: 02/15/17 13:32 02/15/17 13:32 Discharge Plan - Discharge Medications No Action Gabapentin 300 mg PO 0800,1200 Budesonide/Formoterol 160-4.5 [Symbicort 160-4.5] 2 puff INH BID PRN PRN Reason: Congestion Rifaximin [Xifaxan] 550 mg PO BID Gabapentin 600 mg PO QPM Docusate Sodium Cap [Colace Cap] 100 mg PO BID capsule Iron (Carbonyl) [Feosol Natural Release Tab] 45 mg PO DAILY tablet Morphine Sulfate [Morphine Sulfate ER] 15 mg PO BEDTIME #10 tablet oxyCODONE/ACETAMINOPHEN 5-325 [Percocet 5-325] 1 tablet PO Q4H PRN #5 tablet PRN Reason: Pain Furosemide Tab [Lasix Tab] 40 mg PO DAILY PRN PRN Reason: Edema Calcium (Carb)/Vit D 600-400 [Caltrate 600 + D] 1 tablet PO DAILY Melatonin/Pyridoxine HCl (B6) [Melatonin 3 mg Tablet] 2 each PO BEDTIME Multivitamin [Multivitamins] 1 each PO DAILY - Follow Up or Referral - Forms/Instructions
[2017-02-19] MEDS ORDERED: HYDROmorphone 2 MG/1 ML VIAL ONE (10:57)
[2017-02-19] MEDS ORDERED: PROPOFOL 200 MG/20 ML VIAL IV ONE (10:57)
[2017-02-19] MEDS ORDERED: SEVOFLURANE 1 UNIT/15 MINUTE INH ONE (10:57)
[2017-02-19] MEDS ORDERED: ONDANSETRON 4 MG/2 ML VIAL ONE (10:58)
[2017-02-19] MEDS ORDERED: MIDAZOLAM 2 MG/2 ML VIAL ONE (10:58)
[2017-02-19] MEDS ORDERED: fentaNYL 100 MCG/2 ML VIAL ONE (10:58)
[2017-02-19] MEDS ORDERED: FUROSEMIDE 40 MG TABLET PO PRN (11:22)
[2017-02-19] MEDS ORDERED: GLUCAGON 1 MG VIAL IM PRN (11:22)
[2017-02-19] MEDS ORDERED: DEXTROSE 50% 25 GM/50 ML SYRINGE IV PRN (11:22)
[2017-02-19] MEDS ORDERED: PROMETHAZINE 25 MG/1 ML VIAL IM PRN (11:22)
[2017-02-19] MEDS ORDERED: BUDESONIDE/FORMOTEROL 160-4.5 INHALER 6 GM INH PRN (11:22)
[2017-02-19] MEDS ORDERED: ONDANSETRON 4 MG/2 ML VIAL IV PRN (11:22)
[2017-02-19] MEDS ORDERED: DILTIAZEM 100 MG VIAL.ADD IV ONE (11:37)
[2017-02-19 11:40] LABS: Basophils # 0.1 10*3/uL (0.0-0.2); Basophils % 0.7 % (0.0-0.8); Eosinophils # 0.2 10*3/uL (0.0-0.87); Eosinophils % 1.7 % (0.00-10.9); Hematocrit 30.5 VOL% (42.0-52.0); Hemoglobin 10.1 GM/DL (14.0-18.0); Immature Granulocytes % 0.3 %; Immature Granulocytes Absolute 0.03 #; Lymphocytes # 1.5 10*3/uL (1.4-4.0); Lymphocytes % 15.7 % (21.2-54.2); Mean Corpuscular HGB Conc 33.1 GM/DL (32-36); Mean Corpuscular Hemoglobin 36 PG (27-34); Mean Corpuscular Volume 109.3 FL (87-102); Mean Platelet Volume 10.5 FL (9.6-12.0); Monocytes # 1.3 10*3/uL (0.11-0.8); Monocytes % 13.7 % (1.7-12.7); Neutrophils # 6.3 10*3/uL (1.4-7.4); Neutrophils % 67.9 % (38.7-73.9); Platelet Count 148 T/CUMM (130-400); Red Blood Count 2.79 MC/CUMM (3.8-5.5); Red Cell Distribution Width 14.6 % (9.3-17.3); White Blood Count 9.4 T/CUMM (4-12)
[2017-02-19] MEDS ORDERED: SODIUM CHLORIDE 0.9% 100 ML IV ONE (11:43)
[2017-02-19] MEDS: HYDROmorphone PCA 30 MG/30 ML SYRINGE IV SCH (11:58)
[2017-02-19] MEDS: SODIUM CHLORIDE 0.9% 1,000 ML IV SCH ×2 (12:00→19:59)
[2017-02-19] MEDS: DILTIAZEM INJ 100 MG in SODIUM CHLORIDE 0.9% 100 ML IV SCH (12:00)
--- NOTE | 2017-02-19 12:04 | Cardiology Consult Note ---
Assessment and Plan - Time spent with patient Time spent with patient: Greater than 30 minutes (Chart review, documentation and orders and examination history physical) (1) Atrial fibrillation with RVR Status: Acute Current Visit: Yes (2) Nonischemic cardiomyopathy Status: Chronic Current Visit: Yes (3) Peripheral vascular disease Status: Chronic Current Visit: Yes (4) Peptic ulcer disease Status: Resolved Current Visit: Yes History of Present Illness - Data of Consult Patient: new to practice Consult date: 02/19/17 Requesting Physician: Luis Antonio Villanueva Primary care physician: Ru Gómez - Consult Narrative Reason for consult: Atrial fibrillation History of present illness: Mr. Olivia is a 71 year old male with history of nonischemic cardiomyopathy and last known ejection fraction was 40% in September this year by transthoracic echo I have reviewed those images and that report. The patient has been seen in the past by Dr. Durga Ibanez at [facility] and apparently had a left heart catheterization approximately 3 years ago and was told he had no coronary artery disease. He has known history of atrial fibrillation. This has been paroxysmal. The patient has developed a peptic ulcer disease in the past and is not been felt to be an anticoagulant candidate. The patient has a history of hepatitis C and some reports indicate cirrhosis. The reliability of this is unknown there is areas in the electronic health record where he says he has alcoholic cirrhosis but he states he has never been a drinker. 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 The patient denies any chest pain shortness of breath orthopnea. He has been largely asymptomatic despite atrial fibrillation with a rate is high as 120. I discussed with Dr. Villanueva and saw the patient in the ICU. He has no complaints at this time. He seen immediately postoperatively. CC: Luis Antonio Villanueva MD - Home Medications and Allergies Home Medications: Home Medications Medication Instructions Recorded Confirmed Type Gabapentin 300 mg PO 0800,1200 09/20/15 02/19/17 History Budesonide/Formoterol 160-4.5 2 puff INH BID PRN 10/27/15 02/19/17 History [Symbicort 160-4.5] Rifaximin [Xifaxan] 550 mg PO BID 03/25/16 02/19/17 History Gabapentin 600 mg PO QPM 10/21/16 02/19/17 History Docusate Sodium Cap [Colace Cap] 100 mg PO BID capsule 12/19/16 02/19/17 Rx Iron (Carbonyl) [Feosol Natural 45 mg PO DAILY tablet 12/19/16 02/19/17 Rx Release Tab] Morphine Sulfate [Morphine Sulfate 15 mg PO BEDTIME #10 tablet 12/19/16 Rx ER] oxyCODONE/ACETAMINOPHEN 5-325 1 tablet PO Q4H PRN #5 tablet 01/25/17 02/19/17 Rx [Percocet 5-325] Calcium (Carb)/Vit D 600-400 1 tablet PO DAILY 02/15/17 02/19/17 History [Caltrate 600 + D] Furosemide Tab [Lasix Tab] 40 mg PO DAILY PRN 02/15/17 02/19/17 History Melatonin/Pyridoxine HCl (B6) 2 each PO BEDTIME 02/15/17 02/19/17 History [Melatonin 3 mg Tablet] Multivitamin [Multivitamins] 1 each PO DAILY 02/15/17 02/19/17 History Allergies/Adverse Reactions: Allergies Allergy/AdvReac Type Severity Reaction Status Date / Time Transpore Tape Allergy Redness of Uncoded 02/19/17 08:25 Skin - Constitutional Constitutional: Present: weakness. Absent: anorexia, chills, frequent falls - EENT Eyes: Absent: blurry vision, diplopia Ears: Absent: ear discharge Nose, mouth and throat: Absent: dysphagia - Cardiovascular Cardiovascular: Absent: chest pain at rest, chest pain with activity, dyspnea, dyspnea on exertion, edema, orthopnea, palpitations - Respiratory Respiratory: Present: dyspnea, dyspnea on exertion - Gastrointestinal Gastrointestinal: Absent: abdominal pain, dyspepsia - Genitourinary Genitourinary: Absent: difficulty urinating, hematuria - Musculoskeletal Musculoskeletal: Absent: arthralgias - Neurological Neurological: Absent: confusion, disequilibrium, dizziness - Psychiatric Psychiatric: Absent: anxiety, depression - Endocrine Endocrine: Absent: cold intolerance, heat intolerance - Hematologic/Lymphatic Hematologic/Lymphatic: Absent: easy bleeding, easy bruising Medical,Surgical,& Family Hx - Medical History Cardio: History of: Cardiac Dysrhythmia (atrial fibrillation), CHF, Hypertension , Cardiovascular Problems (non-ischemic cardiomyopathy at [facility]) No history of: CAD Psychological: No history of: Anxiety Disorders, ADHD Neurology: History of: Cerebrovascular Accident, Dementia No history of: Seizures HEENT: History of: Ear Problem (DEAF RT EAR), Eye Problem (GLASSES) Endocrine: History of: Diabetes Mellitus (NIDDM) No history of: Diabetes Mellitus (IDDM), Thyroid Disorder, Endocrine Cancer Respiratory: History of: COPD, Respiratory Problems (previous positive PPD test) Genitourinary: History of: Problems Gastrointestinal: History of: Liver Problems (Hepatitis C), GI Problems ( encephalopathy) Musculoskeletal: History of: Amputation, Back/Neck Problems (CHRONIC DR. DEL CID HX INJECTIONS), Musculoskeletal Problems (ARTHRITIS/LT SHOULDER ROTATOR CUFF TEAR-INJURY NOVEMBER 2014) Hematology: No history of: Blood Transfusion Reaction Other: History of: Skin Problems (left arm red and dry and has a lesion on it also) No history of: Anesthesia Reactions, Cancer - Surgical History Cardiac Surgeries: Sugical HX of: Cardiac Catheterization Patient Denies: Femoral-Popliteal Bypass Graft, Cardiac Surgery, Carotid Endarterectomy, Internal Defibrillator, Vascular Access Devices Neurologic Surgeries: Patient denies: Neurologic Surgery HEENT Surgeries: Surgical HX of: Eye Surgery (CATARACT RT/LT) Patient denies: Carotid Endarterectomy Abdominal Surgeries: Surgical HX of: Abdominal Surgery, Cholecystectomy, Colonoscopy Patient denies: Splenectomy Orthopedic Surgeries: Surgical HX of;: Orthopedic Surgery (RT RCR/FOR LT RCR 06/15), Spinal Surgery (Lumbar discectomy), Total Knee Replacement (patient fell had prvious surgery to right leg) - Family History Family History: Reports;: Family Cancer, Family Heart Disease, Family Hypertension - Social History Smoking Status: Current every day smoker Frequency of Alcohol Use: None Type of Drug Use: None Marital Status: Lives With:: Spouse Functional capacity: wheelchair bound Physical Examination Vital Signs Temp Pulse Resp BP Pulse Ox 97.4 F L 89 18 116/91 98 02/19/17 08:30 02/19/17 08:30 02/19/17 08:30 02/19/17 08:30 02/19/17 08:30 General: Present: Other (Postoperative appearance he had appears somewhat pale) HEENT: Present: Normocephaly Neck: Present: Supple Neck, Midline Trachea Cardiac: Present: Irregularly Regular, S1/S2 Lungs: Present: Normal Exam Neuro: Present: Cranial Nerve 2-12 Intact Abdomen: Present: Soft, Active Bowel Sounds Skin: Present: Clear Musculoskeletal: Present: Erythematous Joints Extremities: Present: Other (Status post right AKA fresh) Result/EKG - Labs CBC & BMP: 02/19/17 11:35 02/15/17 13:32 Labs: Laboratory Results - last 24 hr 02/19/17 02/19/17 11:35 11:40 WBC 9.4 RBC 2.79 L Hgb 10.1 L Hct 30.5 L MCV 109.3 H MCH 36 H MCHC 33.1 RDW 14.6 Plt Count 148 MPV 10.5 Neut % (Auto) 67.9 Lymph % (Auto) 15.7 L [place] % (Auto) 13.7 H Eos % (Auto) 1.7 Baso % (Auto) 0.7 Neut # (Auto) 6.3 Lymph # (Auto) 1.5 [place] # (Auto) 1.3 H Eos # (Auto) 0.2 Baso # (Auto) 0.1 Immature Gran % 0.3 Nucleated RBC % 0.0 Immature Gran # 0.03 Nucleated RBCs # 0.00 Immature Plt Fraction 0.0 POC Glucose 152 H - EKG EKG results: interpreted by me (Atrial fibrillation, right bundle branch block from prior to surgery was rate controlled at 88) Quality Measures - VTE Contraindication to Mechanical VTE Prophylaxis: Ischemic Vascular Disease
[2017-02-19 12:13] LABS: Calcium 8.8 MG/DL (8.5-10.1); Osmolality,Calculated 282.3 MOS/KG (273-304); Potassium 4.2 MMOL/L (3.5-5.1)
--- NOTE | 2017-02-19 12:19 | Anesthesia Post-Op ---
Anesthesia Post OP - Post Ansesthetic Evaluation Patient seen in post op: Yes Resp: within normal limits CV: within normal limits Mental: within normal limits Temp: within normal limits [id number]: within normal limits Nausea and Vomiting: within normal limits Pain: within normal limits
[2017-02-19] MEDS: INSULIN REGULAR 100 UNIT/ML SUBCUT SCH ×3 (15:07→20:11)
[2017-02-19] MEDS: GABAPENTIN 300 MG CAPSULE PO SCH ×2 (15:07→19:59)
[2017-02-19] MEDS: CARVEDILOL 6.25 MG TABLET PO SCH ×2 (15:08→20:11)
[2017-02-19] MEDS: oxyCODONE/ACETAMINOPHEN 5-325 MG TABLET PO PRN (19:32)
[2017-02-19] MEDS: MELATONIN 3 MG TABLET PO SCH (20:11)
[2017-02-19] MEDS: DOCUSATE SODIUM 100 MG CAPSULE PO SCH (20:11)
[2017-02-19] MEDS: RIFAXIMIN 550 MG TABLET PO SCH (20:11)
[2017-02-20] MEDS: SODIUM CHLORIDE 0.9% 1,000 ML IV SCH ×4 (04:00→16:50)
[2017-02-20] MEDS: ENOXAPARIN 40 MG/0.4 ML SYRINGE SUBCUT SCH (04:24)
[2017-02-20 05:13] LABS: Basophils # 0.1 10*3/uL (0.0-0.2); Basophils % 0.6 % (0.0-0.8); Eosinophils # 0.1 10*3/uL (0.0-0.87); Eosinophils % 0.7 % (0.00-10.9); Hematocrit 29.5 VOL% (42.0-52.0); Hemoglobin 9.5 GM/DL (14.0-18.0); Immature Granulocytes % 0.4 %; Immature Granulocytes Absolute 0.04 #; Lymphocytes # 0.9 10*3/uL (1.4-4.0); Lymphocytes % 10.2 % (21.2-54.2); Mean Corpuscular HGB Conc 32.2 GM/DL (32-36); Mean Corpuscular Hemoglobin 36 PG (27-34); Mean Corpuscular Volume 110.5 FL (87-102); Monocytes % 11.5 % (1.7-12.7); Neutrophils # 6.9 10*3/uL (1.4-7.4); Neutrophils % 76.6 % (38.7-73.9); Platelet Count 143 T/CUMM (130-400); Red Blood Count 2.67 MC/CUMM (3.8-5.5); Red Cell Distribution Width 14.5 % (9.3-17.3)
[2017-02-20 05:33] LABS: Calcium 8.5 MG/DL (8.5-10.1); Osmolality,Calculated 280.3 MOS/KG (273-304); Potassium 4.6 MMOL/L (3.5-5.1)
[2017-02-20 05:42] LABS: Giant Platelets Few; Hypochromasia 1+; Platelet Estimate Normal
--- NOTE | 2017-02-20 07:08 | Cardiology Progress Note ---
Assessment and Plan - Time spent with patient Time spent with patient: Less than 30 minutes (1) Atrial fibrillation with RVR Status: Acute Assessment and plan: His rate is controlled at this time. Continue current medicines watch his blood pressure closely. Decision about anticoagulation to initiate once H&H are stable and he is adequately far out postoperatively for this to be safe Current Visit: Yes (2) Nonischemic cardiomyopathy Status: Chronic Current Visit: Yes (3) Peripheral vascular disease Status: Chronic Current Visit: Yes (4) Peptic ulcer disease Status: Resolved Assessment and plan: Monitor this closely if anticoagulation is initiated Current Visit: Yes Cardiology - PN: Subj Interval history: Mr. Olivia's complaint this morning is only pain at his surgical site. He denies chest pain or shortness of breath. I requested records yesterday from [facility] they have yet to arrive into the electronic health record. The patient's heart rate is controlled he was marginally hypotensive overnight. His hemoglobin did drop some postoperatively. I would not initiate anticoagulation at this time but he may be a candidate once he is far enough out postoperatively and his H&H are stable. Still awaiting records from [place] to clarify the status of his cardiomyopathy. Exam (Progress Note) - Constitutional Vitals: Period Temp Pulse Resp BP Sys/Cutler Pulse Ox Last 24 Hr 97.4 F-98.5 F 72-146 12-28 86-149/50-112 88-100 General appearance: normal weight - Eye Eye exam: Present: EOMI, other (He has some conjunctival pallor) Pupils: Present: JESSICA - Respiratory Respiratory exam: Present: clear to auscultation bilaterally (Fairly good effort he has atelectasis that resolved with second effort) - Cardiovascular Cardiovascular exam: Present: irregular rhythm - GI/Abdominal GI/Abdominal exam: Present: normal bowel sounds - Neurological Exam Neurological exam: Present: alert, oriented X3 - Psychiatric Psychiatric exam: Present: normal affect, normal mood - Skin Skin exam: Present: normal color, warm, dry (his stump is dressed) Result/EKG - Labs CBC & BMP: 02/20/17 04:50 02/20/17 04:50 Labs: Laboratory Results - last 24 hr 02/19/17 02/19/17 02/19/17 11:35 11:35 11:40 WBC 9.4 RBC 2.79 L Hgb 10.1 L Hct 30.5 L MCV 109.3 H MCH 36 H MCHC 33.1 RDW 14.6 Plt Count 148 MPV 10.5 Neut % (Auto) 67.9 Lymph % (Auto) 15.7 L [place] % (Auto) 13.7 H Eos % (Auto) 1.7 Baso % (Auto) 0.7 Neut # (Auto) 6.3 Lymph # (Auto) 1.5 [place] # (Auto) 1.3 H Eos # (Auto) 0.2 Baso # (Auto) 0.1 Immature Gran % 0.3 Nucleated RBC % 0.0 Immature Gran # 0.03 Nucleated RBCs # 0.00 Platelet Estimate Giant Platelets Immature Plt Fraction 0.0 Hypochromasia Sodium 141 Potassium 4.2 Chloride 108 H Carbon Dioxide 26 Anion Gap 11.2 BUN 15 Creatinine 0.90 GFR Calculation 99 BUN/Creatinine Ratio 16.00 Glucose 121 H POC Glucose 152 H Calculated Osmolality 282.3 Calcium 8.8 Magnesium 02/19/17 02/19/17 02/19/17 15:59 20:02 21:07 WBC RBC Hgb Hct MCV MCH MCHC RDW Plt Count MPV Neut % (Auto) Lymph % (Auto) [place] % (Auto) Eos % (Auto) Baso % (Auto) Neut # (Auto) Lymph # (Auto) [place] # (Auto) Eos # (Auto) Baso # (Auto) Immature Gran % Nucleated RBC % Immature Gran # Nucleated RBCs # Platelet Estimate Giant Platelets Immature Plt Fraction Hypochromasia Sodium Potassium Chloride Carbon Dioxide Anion Gap BUN Creatinine GFR Calculation BUN/Creatinine Ratio Glucose POC Glucose 146 H 407 H 219 H Calculated Osmolality Calcium Magnesium 02/20/17 02/20/17 02/20/17 04:50 04:50 05:37 WBC 9.0 RBC 2.67 L Hgb 9.5 L Hct 29.5 L MCV 110.5 H MCH 36 H MCHC 32.2 RDW 14.5 Plt Count 143 MPV 11.0 Neut % (Auto) 76.6 H Lymph % (Auto) 10.2 L [place] % (Auto) 11.5 Eos % (Auto) 0.7 Baso % (Auto) 0.6 Neut # (Auto) 6.9 Lymph # (Auto) 0.9 L [place] # (Auto) 1.0 H Eos # (Auto) 0.1 Baso # (Auto) 0.1 Immature Gran % 0.4 Nucleated RBC % 0.0 Immature Gran # 0.04 Nucleated RBCs # 0.00 Platelet Estimate Normal Giant Platelets Few Immature Plt Fraction 0.0 Hypochromasia 1+ Sodium 141 Potassium 4.6 Chloride 110 H Carbon Dioxide 25 Anion Gap 10.6 BUN 21 H Creatinine 0.80 GFR Calculation 104 BUN/Creatinine Ratio 26.00 H Glucose 51 L POC Glucose 60 L Calculated Osmolality 280.3 Calcium 8.5 Magnesium 2.0 02/20/17 06:14 WBC RBC Hgb Hct MCV MCH MCHC RDW Plt Count MPV Neut % (Auto) Lymph % (Auto) [place] % (Auto) Eos % (Auto) Baso % (Auto) Neut # (Auto) Lymph # (Auto) [place] # (Auto) Eos # (Auto) Baso # (Auto) Immature Gran % Nucleated RBC % Immature Gran # Nucleated RBCs # Platelet Estimate Giant Platelets Immature Plt Fraction Hypochromasia Sodium Potassium Chloride Carbon Dioxide Anion Gap BUN Creatinine GFR Calculation BUN/Creatinine Ratio Glucose POC Glucose 217 H Calculated Osmolality Calcium Magnesium Quality Measures - VTE Contraindication to Mechanical VTE Prophylaxis: Ischemic Vascular Disease
--- NOTE | 2017-02-20 07:44 | Event Note ---
General Surgery Progress Note Chief complaint This patient is a 71-year-old man admitted for right above-knee amputation complicated by A. fib with RVR in the operating is now resolving Interval history The patient did well in ICU overnight. He is complaining of some pain but he is asleep whenever I walk in the room. He is tolerating his diet without difficulty. The patient has been off of his diltiazem infusion for over 12 hours. Physical exam The patient is afebrile and his vital signs are normal this morning His pulses are regular His right above-knee amputation stump dressing is clean and dry with no evidence of bleeding Labs Reviewed Imaging None new Assessment and plan Transfer to floor Physical therapy Discharge planning, likely to [facility] when ready
[2017-02-20] MEDS: oxyCODONE/ACETAMINOPHEN 5-325 MG TABLET PO PRN ×3 (07:46→18:25)
[2017-02-20] MEDS: INSULIN REGULAR 100 UNIT/ML SUBCUT SCH ×4 (07:48→21:18)
[2017-02-20] MEDS: GABAPENTIN 300 MG CAPSULE PO SCH ×3 (07:48→18:22)
[2017-02-20] MEDS: DOCUSATE SODIUM 100 MG CAPSULE PO SCH ×2 (08:19→21:18)
[2017-02-20] MEDS: MULTIVITAMIN (CENTRUM) TABLET PO SCH (08:20)
[2017-02-20] MEDS: CALCIUM (CARBONATE)/VITAMIN D 600 MG-400 UNIT TABLET PO SCH (08:20)
[2017-02-20] MEDS: RIFAXIMIN 550 MG TABLET PO SCH ×2 (08:20→21:18)
[2017-02-20] MEDS: CARVEDILOL 6.25 MG TABLET PO SCH ×2 (08:20→21:18)
[2017-02-20] MEDS: IRON (CARBONYL) 45 MG TABLET PO SCH (08:21)
[2017-02-20] MEDS: HYDROmorphone PCA 30 MG/30 ML SYRINGE IV SCH (13:06)
[2017-02-20] MEDS: DILTIAZEM INJ 100 MG in SODIUM CHLORIDE 0.9% 100 ML IV SCH (13:07)
--- NOTE | 2017-02-20 18:23 | Pathology Report from [facility] ---
[facility] [place] # : [id number] PATIENT NAME : Kalin Olivia ORDERING DR : Luis Antonio Villanueva MD CLINICAL HX: Right lower extremity ulcer POST-OP DX: Same SPECIMEN INFO: Right leg GROSS DESCRIPTION: Received fresh labeled with the patients name KALIN OLIVIA and consists of an above the knee amputation measuring 37.0 cm. The foot has been previously amputated. The skin is white-lima. Adjacent to the site of previous amputation there is a large ulcerated area measuring 4.8 x 3.5 cm. Sectioning through the artery reveals a thrombosed blood and calcifications noted. Sections submitted: A artery, B ulcerated skin. DIAGNOSIS FOR KALIN OLIVIA: RIGHT A-K AMPUTATION: Severe ulceration with necrosis and suppuration. Organizing thrombosis and atherosclerosis of artery. COLLECTED DATE: 02/19/2017 [facility] [place] REPORT DATE: 02/20/2017 ELECTRONICALLY SIGNED BY: Mikki Diaz M.D. 02/20/2017 - 9:57:15 MTDRoyal
[2017-02-20] MEDS: MELATONIN 3 MG TABLET PO SCH (21:18)
[2017-02-21] MEDS: SODIUM CHLORIDE 0.9% 1,000 ML IV SCH ×2 (01:48→16:50)
[2017-02-21] MEDS: oxyCODONE/ACETAMINOPHEN 5-325 MG TABLET PO PRN (01:49)
[2017-02-21] MEDS: ENOXAPARIN 40 MG/0.4 ML SYRINGE SUBCUT SCH (05:04)
--- NOTE | 2017-02-21 08:40 | Event Note ---
General Surgery Progress Note Chief complaint This patient is a 71-year-old man admitted for right above-knee amputation complicated by A. fib with RVR in the operating is now resolving Interval history No events overnight. Pain is well controlled. Patient started having hematuria this morning. He says he has not had problems with this in the past. Physical exam The patient is afebrile and his vital signs are normal this morning His pulses are irregular His right above-knee amputation stump dressing is clean and dry with no evidence of bleeding Labs none new Imaging None new Assessment and plan Hematuria workup today with urinalysis and blood work. We will also check a postvoid residual bladder scan. Transferred at home in a rehab the next couple days. oncology social worker consult has been placed for this referral.
[2017-02-21] MEDS: RIFAXIMIN 550 MG TABLET PO SCH ×2 (09:00→20:37)
[2017-02-21] MEDS: IRON (CARBONYL) 45 MG TABLET PO SCH (09:00)
[2017-02-21] MEDS: MULTIVITAMIN (CENTRUM) TABLET PO SCH (09:01)
[2017-02-21] MEDS: CARVEDILOL 6.25 MG TABLET PO SCH ×3 (09:01→20:36)
[2017-02-21] MEDS: GABAPENTIN 300 MG CAPSULE PO SCH ×3 (09:01→20:37)
[2017-02-21] MEDS: INSULIN REGULAR 100 UNIT/ML SUBCUT SCH ×4 (09:01→22:10)
[2017-02-21] MEDS: DOCUSATE SODIUM 100 MG CAPSULE PO SCH ×2 (09:01→20:36)
[2017-02-21] MEDS: CALCIUM (CARBONATE)/VITAMIN D 600 MG-400 UNIT TABLET PO SCH (09:02)
[2017-02-21 09:59] LABS: Basophils # 0.1 10*3/uL (0.0-0.2); Basophils % 0.7 % (0.0-0.8); Eosinophils # 0.4 10*3/uL (0.0-0.87); Eosinophils % 4.2 % (0.00-10.9); Hematocrit 27.2 VOL% (42.0-52.0); Hemoglobin 8.8 GM/DL (14.0-18.0); Immature Granulocytes % 0.4 %; Immature Granulocytes Absolute 0.03 #; Lymphocytes # 1.6 10*3/uL (1.4-4.0); Lymphocytes % 19.2 % (21.2-54.2); Mean Corpuscular HGB Conc 32.4 GM/DL (32-36); Mean Corpuscular Hemoglobin 36 PG (27-34); Mean Corpuscular Volume 112.4 FL (87-102); Mean Platelet Volume 11.4 FL (9.6-12.0); Monocytes # 1.3 10*3/uL (0.11-0.8); Monocytes % 15.8 % (1.7-12.7); Neutrophils % 59.7 % (38.7-73.9); Platelet Count 121 T/CUMM (130-400); Red Blood Count 2.42 MC/CUMM (3.8-5.5); Red Cell Distribution Width 14.6 % (9.3-17.3); White Blood Count 8.3 T/CUMM (4-12)
[2017-02-21 10:16] LABS: Osmolality,Calculated 284.4 MOS/KG (273-304); Potassium 4.5 MMOL/L (3.5-5.1)
[2017-02-21 10:21] LABS: INR 1.2; PT Patient Result 12.4 SECS; Partial Thromboplastin Time 32.7 SECS (0-40)
[2017-02-21 10:31] LABS: Eosinophils 7 % (0-10); Lymphocytes 21 % (20-55); Macrocytosis Slight; Segmented Neutrophils 65 % (50-85); Total Cells Counted 100
[2017-02-21 10:32] LABS: Platelet Estimate Adequate
[2017-02-21 14:12] LABS: Apearance,Urine Slightly Hazy (Clear); Bilirubin,Urine Negative (Negative); Blood, Urine Large mg/dL (Negative); Glucose,Urine (UA) Negative (Negative); Ketones,Urine Negative (Negative); Mucus,Urine Occasional /LPF (Occasional); Nitrite,Urine Negative (Negative); Protein,Urine 100 MG/DL; RBC,Urine 1735 /HPF (0-4); Urine Specific Gravity 1.016 (1.001-1.035); Urine Urobilinogen < 2.0 EU/DL (0.2-1.0); WBC,Urine 35 /HPF (0-6)
[2017-02-21 14:13] LABS: Urine Color Brown (Yellow)
--- NOTE | 2017-02-21 17:31 | Cardiology Progress Note ---
Jose Luis Knight April RN, am scribing for, and in the presence of, Priyanka Meehan MD 17:31. 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 Ibanez or Dr. Pollard Summary: Mr. Olivia is a 71 year old male with history of nonischemic cardiomyopathy and last known ejection fraction was 40% in September this year by transthoracic echo. The patient apparently had a left heart catheterization approximately 3 years ago and was told he had no coronary artery disease. He has known history of atrial fibrillation. This has been paroxysmal. The patient has developed a peptic ulcer disease in the past and is not been felt to be an anticoagulant candidate. The patient has a history of hepatitis C and some reports indicate cirrhosis. The reliability of this is unknown there is areas in the electronic health record where he says he has alcoholic cirrhosis but he states he has never been a drinker. 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 He underwent right AKA Dr. Villanueva on February 19. Cardiology was consulted to see for atrial fibrillation with RVR, heart rates in the 120s. He was placed on diltiazem infusion, this has been discontinued and he has been started on carvedilol. February 21, 2017: Mr. Olivia is seen resting in bed no acute distress. He is day 2 status post right AKA. He denies any chest pain, shortness of breath, palpitations. He does continue to have pain at his stump site. His heart rates have been controlled throughout the night. He continues to be slightly hypotensive, but these numbers have improved. Dr. Blake requested records from [facility], I still do not see these records in the chart. Assessment/plan: 1. Atrial flutter with RVR--his rate is now controlled. Continue Coreg 6.25 mg twice daily. Continue to monitor his blood pressures. Currently his hemoglobin continues to decline and he has not an anticoagulant candidate right now. 2. Nonischemic cardiomyopathy 3. Peripheral vascular disease 4. Peptic ulcer--this will need to be monitored closely if anticoagulation is initiated Exam (Progress Note) - Constitutional Vitals: Period Temp Pulse Resp BP Sys/Cutler Pulse Ox Last 24 Hr 96.8 F-98.5 F 75-105 12-18 86-108/55-73 93-98 General appearance: normal weight, no acute distress - Head Head exam: Absent: abrasion, hematoma - Eye Eye exam: Absent: periorbital swelling, laceration to eyelids Pupils: Present: JESSICA. Absent: dilated, fixed, irregular - ENT ENT exam: Present: normal exam, normal external ear exam - Neck Neck exam: Absent: lymphadenopathy, tenderness - Respiratory Respiratory exam: Present: clear to auscultation bilaterally. Absent: accessory muscle use, chest wall tenderness - Cardiovascular Cardiovascular exam: Present: irregular rhythm, systolic murmur. Absent: tachycardia - GI/Abdominal GI/Abdominal exam: Present: normal bowel sounds, soft. Absent: distended, tenderness - Extremities Exam Extremities exam: Present: edema (Tries to left lower extremity), other (Right stump is dressed). Absent: calf tenderness - Back Exam Back exam: Absent: muscle spasm, vertebral tenderness - Neurological Exam Neurological exam: Present: alert, oriented X3 - Psychiatric Psychiatric exam: Present: normal affect, normal mood - Skin Skin exam: Present: warm, dry Result/EKG - Labs CBC & BMP: 02/21/17 09:22 02/21/17 09:21 Lab Results: I have reviewed the past 24 hour labs Labs: Laboratory Results - last 24 hr 02/20/17 02/20/17 02/20/17 12:28 15:33 20:33 POC Glucose 114 H 182 H 161 H 02/21/17 07:17 POC Glucose 136 H Quality Measures - VTE Contraindication to Mechanical VTE Prophylaxis: Ischemic Vascular Disease I, Priyanka Meehan MD, personally performed the services described in this documentation, ascribed by Agatha Amaya RN in my presence, and it is both accurate and complete [id number] .
[2017-02-21] MEDS: MELATONIN 3 MG TABLET PO SCH (20:36)
[2017-02-22] MEDS: ENOXAPARIN 40 MG/0.4 ML SYRINGE SUBCUT SCH (04:17)
[2017-02-22] MEDS: INSULIN REGULAR 100 UNIT/ML SUBCUT SCH ×4 (08:07→21:14)
[2017-02-22] MEDS: DOCUSATE SODIUM 100 MG CAPSULE PO SCH ×2 (08:28→21:13)
[2017-02-22] MEDS: IRON (CARBONYL) 45 MG TABLET PO SCH (08:28)
[2017-02-22] MEDS: RIFAXIMIN 550 MG TABLET PO SCH ×2 (08:28→21:13)
[2017-02-22] MEDS: CALCIUM (CARBONATE)/VITAMIN D 600 MG-400 UNIT TABLET PO SCH (08:29)
[2017-02-22] MEDS: CARVEDILOL 6.25 MG TABLET PO SCH ×2 (08:29→21:13)
[2017-02-22] MEDS: MULTIVITAMIN (CENTRUM) TABLET PO SCH (08:29)
[2017-02-22] MEDS: GABAPENTIN 300 MG CAPSULE PO SCH ×3 (08:29→18:33)
[2017-02-22] MEDS ORDERED: ALBUTEROL/IPRATROPIUM 3 ML NEB RESP TX PRN (09:16)
--- NOTE | 2017-02-22 09:19 | Event Note ---
General Surgery Progress Note Chief complaint This patient is a 71-year-old man admitted for right above-knee amputation complicated by A. fib with RVR in the operating is now resolving Interval history The patient continues to have hematuria. Labs yesterday reviewed. Urinalysis confirms hematuria. Urine culture pending. Physical exam The patient is afebrile and his vital signs are normal this morning His pulses are irregular He has a little bit of bilateral expiratory crackles and is a little bit tachypneic this morning His right above-knee amputation stump has some intermittent erythema along the staple line but no drainage or foul odor Labs none new Imaging None new Assessment and plan Urology consult for hematuria Repeat labs tomorrow Start clindamycin for some erythema on his above-knee amputation site Transfer to [facility] probably tomorrow if doing well
[2017-02-22] MEDS: oxyCODONE/ACETAMINOPHEN 5-325 MG TABLET PO PRN (10:38)
--- NOTE | 2017-02-22 10:50 | XRay Report ---
History of volume overload and wheezing Comparison 12/09/2016 The heart and vessels are enlarged There are mildly increasing reticular and hazy pulmonary opacities with small right effusion. No consolidated infiltrate is seen. Impression: Interval development of mild pulmonary edema PROCEDURE INTERPRETED AT [facility] DEPARTMENT OF RADIOLOGY Final Report Signed by: Dr. Suad Conte
--- NOTE | 2017-02-22 13:25 | Urology Consultation ---
History of Present Illness - Data of Consult Consult date: 02/22/17 - Consult Narrative History of present illness: Mr. Olivia is a 71 year old male The patient is known to me. He has a past history of having a negative workup in 2013 for microscopic hematuria. He has a history of smoking and he denies gross hematuria prior to admission he is currently postop amputation of his leg and he is currently on Lovenox. He says that his urine is dark brown and he has noticed this since surgery. This microscopic hematuria is confirmed on urinalysis and is urine colors is described as brown urine culture is growing out a low colony count of gram-negative organisms. The patient has a long history of smoking. His renal function is normal. I am going to recommend that we screen him with a CT urogram and cystoscopic exam and temporarily stop his Lovenox if this is okay with Dr. Villanueva. CC: Luis Antonio Villanueva MD - Home Medications and Allergies Home Medications: Home Medications Medication Instructions Recorded Confirmed Type Gabapentin 300 mg PO 0800,1200 09/20/15 02/20/17 History Budesonide/Formoterol 160-4.5 2 puff INH BID PRN 10/27/15 02/20/17 History [Symbicort 160-4.5] Rifaximin [Xifaxan] 550 mg PO BID 03/25/16 02/20/17 History Gabapentin 600 mg PO QPM 10/21/16 02/20/17 History Docusate Sodium Cap [Colace Cap] 100 mg PO BID capsule 12/19/16 02/20/17 Rx Iron (Carbonyl) [Feosol Natural 45 mg PO DAILY tablet 12/19/16 02/20/17 Rx Release Tab] Morphine Sulfate [Morphine Sulfate 15 mg PO BEDTIME #10 tablet 12/19/16 Rx ER] oxyCODONE/ACETAMINOPHEN 5-325 1 tablet PO Q4H PRN #5 tablet 01/25/17 02/20/17 Rx [Percocet 5-325] Calcium (Carb)/Vit D 600-400 1 tablet PO DAILY 02/15/17 02/20/17 History [Caltrate 600 + D] Furosemide Tab [Lasix Tab] 40 mg PO DAILY 02/15/17 02/20/17 History Melatonin/Pyridoxine HCl (B6) 2 each PO BEDTIME 02/15/17 02/20/17 History [Melatonin 3 mg Tablet] Multivitamin [Multivitamins] 1 each PO DAILY 02/15/17 02/20/17 History DULoxetine [Cymbalta] 30 mg PO DAILY 02/20/17 02/20/17 History Allergies/Adverse Reactions: Allergies Allergy/AdvReac Type Severity Reaction Status Date / Time Transpore Tape Allergy Redness of Uncoded 02/19/17 08:25 Skin Exam - Constitutional Vitals: Period Temp Pulse Resp BP Sys/Cutler Pulse Ox Last 24 Hr 96.6 F-98.7 F 69-96 18-20 110-130/66-82 96-98 Results - Labs CBC & BMP: 02/21/17 09:22 02/21/17 09:21
[2017-02-22] MEDS: CLINDAMYCIN 300 MG CAPSULE PO SCH ×2 (13:36→18:33)
--- NOTE | 2017-02-22 15:23 | Discharge Summary ---
Discharge Plan - Discharge Medications No Action Gabapentin 300 mg PO 0800,1200 Budesonide/Formoterol 160-4.5 [Symbicort 160-4.5] 2 puff INH BID PRN PRN Reason: Congestion Rifaximin [Xifaxan] 550 mg PO BID Gabapentin 600 mg PO QPM Docusate Sodium Cap [Colace Cap] 100 mg PO BID capsule Iron (Carbonyl) [Feosol Natural Release Tab] 45 mg PO DAILY tablet Morphine Sulfate [Morphine Sulfate ER] 15 mg PO BEDTIME #10 tablet oxyCODONE/ACETAMINOPHEN 5-325 [Percocet 5-325] 1 tablet PO Q4H PRN #5 tablet PRN Reason: Pain Furosemide Tab [Lasix Tab] 40 mg PO DAILY Calcium (Carb)/Vit D 600-400 [Caltrate 600 + D] 1 tablet PO DAILY Melatonin/Pyridoxine HCl (B6) [Melatonin 3 mg Tablet] 2 each PO BEDTIME Multivitamin [Multivitamins] 1 each PO DAILY DULoxetine [Cymbalta] 30 mg PO DAILY - Follow Up or Referral - Forms/Instructions Exam - Constitutional Vitals: Period Temp Pulse Resp BP Sys/Cutler Pulse Ox Last 24 Hr 96.6 F-98.7 F 69-96 18-20 110-130/66-82 96-98 Discharge Results Procedures and tests throughout hospitalization: Pending Orders 02/21/17 Urine Culture Routine 02/22/17 14:43 CT urogram Stat 02/23/17 04:00 BMP w/ Mg [Basic Metabolic Panel w/Mg] IN AM Comp Blood Count Auto Diff IN AM Labs on day of discharge: Labs from last 24 hours 02/22/17 02/22/17 02/21/17 11:02 06:59 20:53 POC Glucose 141 H 114 H 187 H 02/21/17 16:13 POC Glucose 142 H Preliminary micro results at discharge 02/21/17 Unknown Urine Culture - Preliminary Urine,Voided Gram Negative Rods DS: Provider Date of admission: 02/19/17 08:05 Primary care physician: Yifan Holguin DO Attending physician on admission: Luis Antonio Villanueva MD Consults: 02/19/17 11:22 Consult to Physician [CONS] Routine Comment: Consulting Provider: Dora Blake Consulting Provider Notified: Yes Consult to Specialist Group: Cardiology When should Consulting Provider be notified: Now Person Notified: ROE Date Notified: 02/19/17 Time Notified: 11:40 02/20/17 15:10 Consult to Case Mgmt/Social Srvs [CONS] Routine Reason for Case Mgmt/Social Srvs: Discharge Planning Consult Comment: Requesting [facility] Consult to Physical Therapy [CONS] Routine Reason for Physical Therapy: Evaluate and Treat 02/22/17 08:34 Consult to Physician [CONS] Routine Comment: Consulting Provider: Zander Heredia Consulting Provider Notified: Yes When should Consulting Provider be notified: Now Consult to Specialist Group: Urology Person Notified: dylan [email or web address] Date Notified: 02/22/17 Time Notified: 08:36 Discharging clinician: Castro Felton MD
--- NOTE | 2017-02-22 16:12 | CT Report ---
CT urogram Indication: Hematuria. CT ABDOMEN AND PELVIS WITH AND WITHOUT CONTRAST, UROGRAM PROTOCOL DLP: 3745 mGy*cm. One or more of the following dose reduction techniques was used: Automated exposure control, adjustment of the mA and/or kV according the patient size, or use of iterative reconstruction techniques. Comparison: CT urogram 12/15/2013 Technique: Axial CT images of the abdomen and pelvis were obtained pre-and post IV contrast administration. Omnipaque 350, 100 cc. Post contrast imaging was performed during the arterial phase, venous phase and urinary excretory phase. 3-d MIPS and multiplanar reformatted images of the urinary collecting system were provided. Urinary System: Innumerable calcified kidney stones are present bilaterally. These findings are increased in number since previous examination. Largest stone is only 2 to 3 mm diameter. There is a 4 mm stone within the right renal pelvis. No hydronephrosis of either kidney. No calculi along the course of either ureter or within the urinary bladder. Arterial enhancement of the kidneys shows prompt bilateral symmetric nephrograms. No renal mass identified. Prompt bilateral excretion is noted. Both ureter contours are smooth without diverticula, stricture or obstruction. Bladder contour is smooth and thin walled. No diverticula or trabeculations seen. Abdomen: Small bilateral pleural effusions are present. Mild cardiomegaly is noted. Bibasilar atelectasis. Extensive calcified atheromatous disease is present. There is no aneurysmal change of the aorta. Liver is nodular and small, similar to the previous exam. Trace amount of ascites is present in both paracolic gutters, new. Body wall edema noted as well. Cholecystectomy clips. Spleen is normal in size. Pancreas, adrenal glands appear unremarkable. 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 No bowel obstruction. Normal appendix without inflammation. Pelvis: Rectosigmoid colon and prostate are within normal limits. Trace amount of ascites collects in the pelvis. No lymphadenopathy. No free air. Impression: 1. Bilateral nephrolithiasis. 4 mm right UPJ stone. No obstruction or other focal urinary system abnormality. 2. Cirrhosis with a small very nodular liver. Large splenorenal shunt, stable. Small amount of ascites, quantity insufficient for sampling. Small bilateral pleural effusions and body wall edema noted. 3. Significant calcified atheromatous disease. No abdominal aortic aneurysm. PROCEDURE INTERPRETED AT [facility] DEPARTMENT OF RADIOLOGY Final Report Signed by: Grayson Carlson M.D.
[2017-02-22] MEDS: HYDROmorphone 2 MG/1 ML VIAL IV PRN ×2 (17:02→21:13)
--- NOTE | 2017-02-22 18:09 | Cardiology Progress Note ---
Jose Luis Knight April RN, am scribing for, and in the presence of, Priyanka Meehan MD 18:09. 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 Ibanez or Dr. Pollard Summary: Mr. Olivia is a 71 year old male with history of nonischemic cardiomyopathy and last known ejection fraction was 40% in September this year by transthoracic echo. The patient apparently had a left heart catheterization approximately 3 years ago and was told he had no coronary artery disease. He has known history of atrial fibrillation. This has been paroxysmal. The patient has developed a peptic ulcer disease in the past and is not been felt to be an anticoagulant candidate. The patient has a history of hepatitis C and some reports indicate cirrhosis. The reliability of this is unknown there is areas in the electronic health record where he says he has alcoholic cirrhosis but he states he has never been a drinker. 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 He underwent right AKA Dr. Villanueva on February 19. Cardiology was consulted to see for atrial fibrillation with RVR, heart rates in the 120s. He was placed on diltiazem infusion, this has been discontinued and he has been started on carvedilol. February 21, 2017: Mr. Olivia is seen resting in bed no acute distress. He is day 2 status post right AKA. He denies any chest pain, shortness of breath, palpitations. He does continue to have pain at his stump site. His heart rates have been controlled throughout the night. He continues to be slightly hypotensive, but these numbers have improved. Dr. Blake requested records from [facility], I still do not see these records in the chart. February 22, 2017: Mr. Olivia is complaining of more stump pain today. He no longer has his pain pump and says his p.o. meds are not holding him as well. He denies any chest pain, shortness of breath, palpitations. Heart rates have been controlled throughout the night, pressures have been stable. He has had some hematuria, urology has been consulted to address this. Possible discharge to [facility] tomorrow. Assessment/plan: 1. Atrial flutter with RVR--his rate is now controlled. Continue Coreg 6.25 mg twice daily. Continue to monitor his blood pressures. Currently his hemoglobin continues to decline and he is not an anticoagulant candidate right now. 2. Nonischemic cardiomyopathy-does not appear to be in heart failure on exam. 3. Peripheral vascular disease 4. Peptic ulcer--this will need to be monitored closely if anticoagulation is initiated There plans to send the patient to [facility] tomorrow. We will sign off. Please reconsult for any acute or dynamic cardiac issues. Exam (Progress Note) - Constitutional Vitals: Period Temp Pulse Resp BP Sys/Cutler Pulse Ox Last 24 Hr 96.6 F-98.3 F 69-96 18-20 110-130/66-77 94-97 Exam: General appearance: normal weight, no acute distress - Head Head exam: Absent: abrasion, hematoma - Eye Eye exam: Absent: periorbital swelling, laceration to eyelids Pupils: Present: JESSICA. Absent: dilated, fixed, irregular - ENT ENT exam: Present: normal exam, normal external ear exam - Neck Neck exam: Absent: lymphadenopathy, tenderness - Respiratory Respiratory exam: Present: clear to auscultation bilaterally. Absent: accessory muscle use, chest wall tenderness - Cardiovascular Cardiovascular exam: Present: irregular rhythm, systolic murmur. Absent: tachycardia - GI/Abdominal GI/Abdominal exam: Present: normal bowel sounds, soft. Absent: distended, tenderness - Extremities Exam Extremities exam: Present: edema (trace to left lower extremity), other (Right stump appears to be healing well). Absent: calf tenderness - Back Exam Back exam: Absent: muscle spasm, vertebral tenderness - Neurological Exam Neurological exam: Present: alert, oriented X3 - Psychiatric Psychiatric exam: Present: normal affect, normal mood - Skin Skin exam: Present: warm, dry Result/EKG - Labs CBC & BMP: 02/21/17 09:22 02/21/17 09:21 Lab Results: I have reviewed the past 24 hour labs Labs: Laboratory Results - last 24 hr 02/21/17 02/21/17 02/21/17 09:21 09:21 09:22 WBC 8.3 RBC 2.42 L Hgb 8.8 L Hct 27.2 L MCV 112.4 H MCH 36 H MCHC 32.4 RDW 14.6 Plt Count 121 L MPV 11.4 Neut % (Auto) 59.7 Lymph % (Auto) 19.2 L Guthrie % (Auto) 15.8 H Eos % (Auto) 4.2 Baso % (Auto) 0.7 Neut # (Auto) 5.0 Lymph # (Auto) 1.6 Guthrie # (Auto) 1.3 H Eos # (Auto) 0.4 Baso # (Auto) 0.1 Total Counted 100 Immature Gran % 0.4 Nucleated RBC % 0.0 Immature Gran # 0.03 Segmented Neutrophils 65 Lymphocytes 21 Monocytes 7 Eosinophils 7 Nucleated RBCs # 0.00 Platelet Estimate Adequate Immature Plt Fraction 0.0 Macrocytosis Slight INR 1.2 PT Patient/Control Mix 12.4 Circ Anticoag PTT 32.7 Sodium 140 Potassium 4.5 Chloride 113 H Carbon Dioxide 21 Anion Gap 10.5 BUN 22 H Creatinine 0.90 GFR Calculation 99 BUN/Creatinine Ratio 24.00 H Glucose 145 H POC Glucose Calculated Osmolality 284.4 Calcium 8.0 L Urine Color Urine Appearance Urine pH Ur Specific Carmen Urine Protein Urine Glucose (UA) Urine Ketones Urine Blood Urine Nitrate Urine Bilirubin Urine Urobilinogen Urine Leukocytes Urine RBC Urine WBC Urine Mucus Ur Culture Indicated? 02/21/17 02/21/17 02/21/17 11:00 13:24 16:13 WBC RBC Hgb Hct MCV MCH MCHC RDW Plt Count MPV Neut % (Auto) Lymph % (Auto) Guthrie % (Auto) Eos % (Auto) Baso % (Auto) Neut # (Auto) Lymph # (Auto) Guthrie # (Auto) Eos # (Auto) Baso # (Auto) Total Counted Immature Gran % Nucleated RBC % Immature Gran # Segmented Neutrophils Lymphocytes Monocytes Eosinophils Nucleated RBCs # Platelet Estimate Immature Plt Fraction Macrocytosis INR PT Patient/Control Mix Circ Anticoag PTT Sodium Potassium Chloride Carbon Dioxide Anion Gap BUN Creatinine GFR Calculation BUN/Creatinine Ratio Glucose POC Glucose 142 H 142 H Calculated Osmolality Calcium Urine Color Brown Urine Appearance Slightly hazy Urine pH 6.0 Ur Specific Carmen 1.016 Urine Protein 100 Urine Glucose (UA) Negative Urine Ketones Negative Urine Blood Large Urine Nitrate Negative Urine Bilirubin Negative Urine Urobilinogen < 2.0 H Urine Leukocytes Trace Urine RBC 1735 Urine WBC 35 Urine Mucus Occasional Ur Culture Indicated? Results to follow 02/21/17 02/22/17 20:53 06:59 WBC RBC Hgb Hct MCV MCH MCHC RDW Plt Count MPV Neut % (Auto) Lymph % (Auto) Guthrie % (Auto) Eos % (Auto) Baso % (Auto) Neut # (Auto) Lymph # (Auto) Guthrie # (Auto) Eos # (Auto) Baso # (Auto) Total Counted Immature Gran % Nucleated RBC % Immature Gran # Segmented Neutrophils Lymphocytes Monocytes Eosinophils Nucleated RBCs # Platelet Estimate Immature Plt Fraction Macrocytosis INR PT Patient/Control Mix Circ Anticoag PTT Sodium Potassium Chloride Carbon Dioxide Anion Gap BUN Creatinine GFR Calculation BUN/Creatinine Ratio Glucose POC Glucose 187 H 114 H Calculated Osmolality Calcium Urine Color Urine Appearance Urine pH Ur Specific Carmen Urine Protein Urine Glucose (UA) Urine Ketones Urine Blood Urine Nitrate Urine Bilirubin Urine Urobilinogen Urine Leukocytes Urine RBC Urine WBC Urine Mucus Ur Culture Indicated? Quality Measures - VTE Contraindication to Mechanical VTE Prophylaxis: Ischemic Vascular Disease I, Priyanka Meehan MD, personally performed the services described in this documentation, ascribed by Agatha Amaya RN in my presence, and it is both accurate and complete [id number] .
[2017-02-22] MEDS: MELATONIN 3 MG TABLET PO SCH (21:13)
[2017-02-23] MEDS: CLINDAMYCIN 300 MG CAPSULE PO SCH ×4 (00:58→17:37)
[2017-02-23] MEDS: HYDROmorphone 2 MG/1 ML VIAL IV PRN ×3 (05:28→21:06)
[2017-02-23 05:55] LABS: Basophils # 0.1 10*3/uL (0.0-0.2); Basophils % 0.7 % (0.0-0.8); Eosinophils # 0.4 10*3/uL (0.0-0.87); Eosinophils % 5.7 % (0.00-10.9); Hematocrit 25.7 VOL% (42.0-52.0); Hemoglobin 8.6 GM/DL (14.0-18.0); Immature Granulocytes % 0.8 %; Immature Granulocytes Absolute 0.06 #; Lymphocytes # 1.5 10*3/uL (1.4-4.0); Lymphocytes % 20.5 % (21.2-54.2); Mean Corpuscular HGB Conc 33.5 GM/DL (32-36); Mean Corpuscular Hemoglobin 36 PG (27-34); Mean Corpuscular Volume 108.9 FL (87-102); Mean Platelet Volume 11.9 FL (9.6-12.0); Monocytes # 0.9 10*3/uL (0.11-0.8); Monocytes % 11.4 % (1.7-12.7); Neutrophils # 4.6 10*3/uL (1.4-7.4); Neutrophils % 60.9 % (38.7-73.9); Platelet Count 137 T/CUMM (130-400); Red Blood Count 2.36 MC/CUMM (3.8-5.5); Red Cell Distribution Width 14.6 % (9.3-17.3); White Blood Count 7.5 T/CUMM (4-12)
[2017-02-23 06:45] LABS: Calcium 8.1 MG/DL (8.5-10.1); Magnesium 2.1 MG/DL (1.8-2.4)
--- NOTE | 2017-02-23 07:40 | Urology Progress Note ---
Urology - PN: Subj Interval history: CT urogram the patient has a 4 mm stone in the right UPJ. He is not complaining any pain on the left side. His urine is now grossly clear. We will plan cystoscopy today and is okay with me to transfer him to rehab following the cystoscopy Exam - Constitutional Vitals: Period Temp Pulse Resp BP Sys/Cutler Pulse Ox Last 24 Hr 96.7 F-98.7 F 69-90 18-20 107-143/66-89 91-98 Results - Labs CBC & BMP: 02/23/17 05:20 02/23/17 05:20
[2017-02-23] MEDS: INSULIN REGULAR 100 UNIT/ML SUBCUT SCH ×4 (08:30→21:01)
[2017-02-23] MEDS: CARVEDILOL 6.25 MG TABLET PO SCH ×2 (08:43→21:09)
--- NOTE | 2017-02-23 09:08 | Discharge Summary ---
Hospital Course - Hospital Course Hospital Course: The patient was admitted for an above-knee amputation and did well postoperatively but did develop some hematuria which was evaluated by Dr. Heredia and he was found to have a right UPJ stone. He was cleared for discharge to rehab. He did develop some erythema around his above-knee amputation site and this responded promptly to antibiotics which will be continued by mouth for a 2 week course. Discharge Plan - Discharge Data Disposition: Disch/Xfer-Ip Rehab Fac Condition at Discharge: Stable Discharge Diet: advance to your usual diet Activity: as per physical therapy Hygiene: may shower Weight Bearing at Discharge: non-weight bearing (Right leg) Driving: not until seen by doctor Contact your physician if you experience:: fever over 101, Difficulty voiding, Redness or swelling, Nausea/Vomiting, Shortness of breath, Bleeding, pain uncontrolled by pain medications Wound / Dressing Care Instructions: Clean wound once daily and leave open to air. Clean with soap and water - Discharge Medications New Carvedilol [Coreg] 6.25 mg PO BID tablet Dextrose 50% [D50] 25 gm IV PRN PRN syringe PRN Reason: Hypoglycemia with IV access Glucagon 1 mg IM PRN PRN vial PRN Reason: Hypoglycemia w/o IV access HYDROmorphone INJ [Dilaudid Inj] 0.5 mg IV Q3H PRN vial PRN Reason: Pain Severe (8-10) Insulin Regular [HumuLIN R] See Protocol SUBCUT ACHS unit Ondansetron Inj [Zofran Inj] 4 mg IV Q4H PRN vial PRN Reason: Nausea/Vomiting Promethazine Inj [Phenergan Inj] 25 mg IM Q4H PRN vial PRN Reason: Nausea/Vomiting Albuterol/Ipratropium Neb [Duoneb] 3 ml RESP TX RT Q4H PRN PRN Reason: Shortness Of Breath/Wheezing Clindamycin Cap [Cleocin Cap] 300 mg PO Q6HR capsule HYDROcodone/ACETAMIN 7.5-325 [[place] 7.5-325] 1 tablet PO Q4H PRN tablet PRN Reason: Pain Moderate (4-7) Continue Gabapentin 300 mg PO 0800,1200 Budesonide/Formoterol 160-4.5 [Symbicort 160-4.5] 2 puff INH BID PRN PRN Reason: Congestion Rifaximin [Xifaxan] 550 mg PO BID Gabapentin 600 mg PO QPM Docusate Sodium Cap [Colace Cap] 100 mg PO BID capsule Iron (Carbonyl) [Feosol Natural Release Tab] 45 mg PO DAILY tablet Furosemide Tab [Lasix Tab] 40 mg PO DAILY Calcium (Carb)/Vit D 600-400 [Caltrate 600 + D] 1 tablet PO DAILY Melatonin/Pyridoxine HCl (B6) [Melatonin 3 mg Tablet] 2 each PO BEDTIME Multivitamin [Multivitamins] 1 each PO DAILY DULoxetine [Cymbalta] 30 mg PO DAILY Discontinued Morphine Sulfate [Morphine Sulfate ER] 15 mg PO BEDTIME #10 tablet oxyCODONE/ACETAMINOPHEN 5-325 [Percocet 5-325] 1 tablet PO Q4H PRN #5 tablet PRN Reason: Pain - Follow Up or Referral Follow Up: Luis Antonio Villanueva MD [Physician] - 03/15/17 - Forms/Instructions Exam - Constitutional Vitals: Period Temp Pulse Resp BP Sys/Cutler Pulse Ox Last 24 Hr 96.7 F-98.7 F 70-90 18-20 107-143/66-89 91-98 General appearance: no acute distress, over weight - Head Head exam: Present: normal inspection, normocephalic - Eye Eye exam: Present: EOMI Pupils: Present: JESSICA - ENT ENT exam: Present: normal exam - Neck Neck exam: Present: normal inspection - Respiratory Respiratory exam: Present: clear to auscultation bilaterally. Absent: accessory muscle use, chest wall tenderness - Cardiovascular Cardiovascular exam: Present: irregular rhythm. Absent: systolic murmur, tachycardia - GI/Abdominal GI/Abdominal exam: Present: soft. Absent: tenderness, rebound - Extremities Exam Extremities exam: Present: other (The right above-knee amputation site has decreased erythema and has almost resolved completely. There is no drainage or foul odor.) - Back Exam Back exam: Present: normal inspection - Neurological Exam Neurological exam: Present: alert - Psychiatric Psychiatric exam: Present: normal affect, normal mood - Skin Skin exam: Present: normal color, warm Discharge Results Procedures and tests throughout hospitalization: Pending Orders 02/21/17 Urine Culture Routine Labs on day of discharge: Labs from last 24 hours 02/23/17 02/23/17 02/23/17 06:45 05:20 05:20 WBC 7.5 RBC 2.36 L Hgb 8.6 L Hct 25.7 L MCV 108.9 H MCH 36 H MCHC 33.5 RDW 14.6 Plt Count 137 MPV 11.9 Neut % (Auto) 60.9 Lymph % (Auto) 20.5 L [place] % (Auto) 11.4 Eos % (Auto) 5.7 Baso % (Auto) 0.7 Neut # (Auto) 4.6 Lymph # (Auto) 1.5 [place] # (Auto) 0.9 H Eos # (Auto) 0.4 Baso # (Auto) 0.1 Immature Gran % 0.8 Nucleated RBC % 0.0 Immature Gran # 0.06 Nucleated RBCs # 0.00 Immature Plt Fraction 0.0 Sodium 143 Potassium 4.0 Chloride 113 H Carbon Dioxide 23 Anion Gap 11.0 BUN 15 Creatinine 0.80 GFR Calculation 104 BUN/Creatinine Ratio 18.00 Glucose 98 POC Glucose 117 H Calculated Osmolality 285.0 Calcium 8.1 L Magnesium 2.1 02/22/17 02/22/17 02/22/17 20:56 17:02 11:02 WBC RBC Hgb Hct MCV MCH MCHC RDW Plt Count MPV Neut % (Auto) Lymph % (Auto) [place] % (Auto) Eos % (Auto) Baso % (Auto) Neut # (Auto) Lymph # (Auto) [place] # (Auto) Eos # (Auto) Baso # (Auto) Immature Gran % Nucleated RBC % Immature Gran # Nucleated RBCs # Immature Plt Fraction Sodium Potassium Chloride Carbon Dioxide Anion Gap BUN Creatinine GFR Calculation BUN/Creatinine Ratio Glucose POC Glucose 149 H 139 H 141 H Calculated Osmolality Calcium Magnesium Preliminary micro results at discharge 02/21/17 Unknown Urine Culture - Preliminary Urine,Voided Gram Negative Rods DS: Provider Date of admission: 02/19/17 08:05 Primary care physician: Yifan Holguin DO Attending physician on admission: Luis Antonio Vlilanueva MD Consults: 02/19/17 11:22 Consult to Physician [CONS] Routine Comment: Consulting Provider: Dora Blake Consulting Provider Notified: Yes Consult to Specialist Group: Cardiology When should Consulting Provider be notified: Now Person Notified: ROE Date Notified: 02/19/17 Time Notified: 11:40 02/20/17 15:10 Consult to Case Mgmt/Social Srvs [CONS] Routine Reason for Case Mgmt/Social Srvs: Discharge Planning Consult Comment: Requesting [facility] Consult to Physical Therapy [CONS] Routine Reason for Physical Therapy: Evaluate and Treat 02/22/17 08:34 Consult to Physician [CONS] Routine Comment: Consulting Provider: Zander Heredia Consulting Provider Notified: Yes When should Consulting Provider be notified: Now Consult to Specialist Group: Urology Person Notified: dylan [email or web address] Date Notified: 02/22/17 Time Notified: 08:36 Discharging clinician: Luis Antonio Villanueva MD Expected date of discharge: 02/23/17
[2017-02-23] MEDS: GABAPENTIN 300 MG CAPSULE PO SCH ×3 (10:37→18:44)
[2017-02-23] MEDS: MULTIVITAMIN (CENTRUM) TABLET PO SCH (10:40)
[2017-02-23] MEDS: CALCIUM (CARBONATE)/VITAMIN D 600 MG-400 UNIT TABLET PO SCH (10:40)
[2017-02-23] MEDS ORDERED: PANTOPRAZOLE 40 MG TABLET PO ONE (11:05)
[2017-02-23] MEDS ORDERED: ALBUTEROL 2.5 MG/3 ML NEB RESP TX ONE (11:05)
[2017-02-23] MEDS ORDERED: LACTATED RINGERS 1,000 ML IV SCH (11:30)
--- NOTE | 2017-02-23 12:22 | Operative Note ---
Date of procedure: 02/23/17 Pre-op diagnosis: Hematuria Post-op diagnosis: same Procedure: Under an adequate preop medication the patient was taken to the cystoscopy room placed on the table in supine position. Intravenous sedation was given by anesthesia and the patient was prepped and draped in the usual manner. Local anesthesia using Xylocaine jelly was instilled into the urethra. A timeout procedure was done. The flexible cystoscope was introduced under direct vision. 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 The anterior urethra was normal and the prostatic urethra was open. The bladder was examined in routine fashion. Urine had to be aspirated prior to inadequate visualization. The bladder wall was smooth mucosa was normal there were no tumors or foreign bodies. The scope was removed the patient tolerated procedure well and returned to the recovery room in good condition. Anesthesia: MAC, local Surgeon / Physician: Zander Heredia Estimated blood loss: none Specimens: none sent Condition: stable Disposition: floor Results - Labs CBC & BMP: 02/23/17 05:20 02/23/17 05:20 Discharge Plan - Discharge Data Disposition: Disch/Xfer-Ip Rehab Fac - Discharge Medications New Carvedilol [Coreg] 6.25 mg PO BID tablet Dextrose 50% [D50] 25 gm IV PRN PRN syringe PRN Reason: Hypoglycemia with IV access Glucagon 1 mg IM PRN PRN vial PRN Reason: Hypoglycemia w/o IV access HYDROmorphone INJ [Dilaudid Inj] 0.5 mg IV Q3H PRN vial PRN Reason: Pain Severe (8-10) Insulin Regular [HumuLIN R] See Protocol SUBCUT ACHS unit Ondansetron Inj [Zofran Inj] 4 mg IV Q4H PRN vial PRN Reason: Nausea/Vomiting Promethazine Inj [Phenergan Inj] 25 mg IM Q4H PRN vial PRN Reason: Nausea/Vomiting Albuterol/Ipratropium Neb [Duoneb] 3 ml RESP TX RT Q4H PRN PRN Reason: Shortness Of Breath/Wheezing Clindamycin Cap [Cleocin Cap] 300 mg PO Q6HR capsule HYDROcodone/ACETAMIN 7.5-325 [[place] 7.5-325] 1 tablet PO Q4H PRN tablet PRN Reason: Pain Moderate (4-7) Continue Gabapentin 300 mg PO 0800,1200 Budesonide/Formoterol 160-4.5 [Symbicort 160-4.5] 2 puff INH BID PRN PRN Reason: Congestion Rifaximin [Xifaxan] 550 mg PO BID Gabapentin 600 mg PO QPM Docusate Sodium Cap [Colace Cap] 100 mg PO BID capsule Iron (Carbonyl) [Feosol Natural Release Tab] 45 mg PO DAILY tablet Furosemide Tab [Lasix Tab] 40 mg PO DAILY Calcium (Carb)/Vit D 600-400 [Caltrate 600 + D] 1 tablet PO DAILY Melatonin/Pyridoxine HCl (B6) [Melatonin 3 mg Tablet] 2 each PO BEDTIME Multivitamin [Multivitamins] 1 each PO DAILY DULoxetine [Cymbalta] 30 mg PO DAILY Discontinued Morphine Sulfate [Morphine Sulfate ER] 15 mg PO BEDTIME #10 tablet oxyCODONE/ACETAMINOPHEN 5-325 [Percocet 5-325] 1 tablet PO Q4H PRN #5 tablet PRN Reason: Pain - Follow Up or Referral Follow Up: Luis Antonio Villanueva MD [Physician] - 03/15/17 9:15 am - Forms/Instructions
--- NOTE | 2017-02-23 12:30 | Anesthesia Post-Op ---
Anesthesia Post OP - Post Ansesthetic Evaluation Patient seen in post op: Yes Resp: within normal limits CV: within normal limits Mental: within normal limits Temp: within normal limits [id number]: within normal limits Nausea and Vomiting: within normal limits Pain: within normal limits
[2017-02-23] MEDS ORDERED: PROPOFOL 200 MG/20 ML VIAL IV ONE (12:35)
[2017-02-23] MEDS ORDERED: MIDAZOLAM 2 MG/2 ML VIAL ONE (12:35)
[2017-02-23] MEDS ORDERED: fentaNYL 100 MCG/2 ML VIAL ONE (12:36)
[2017-02-23] MEDS ORDERED: ONDANSETRON 4 MG/2 ML VIAL ONE (12:36)
[2017-02-23] MEDS: DOCUSATE SODIUM 100 MG CAPSULE PO SCH ×2 (13:35→21:09)
[2017-02-23] MEDS: IRON (CARBONYL) 45 MG TABLET PO SCH (13:35)
[2017-02-23] MEDS: RIFAXIMIN 550 MG TABLET PO SCH ×2 (13:36→21:09)
--- NOTE | 2017-02-23 14:28 | XRay Report ---
Exam: XR KUB Date: 02/23/2017 12:36 PM Indication: Renal pelvic stone Comparison: CT urogram 02/22/2017 and routine radiograph 10/09/2016. Technical: Supine abdomen 2 views Findings: Exam reveals cardiomegaly. Lung bases are unremarkable. The liver is unremarkable. The spleen is otherwise intact. The exam reveals a previous cholecystectomy clips. Vascular plaque in the aorta iliac vessels. Degenerative change present thoracolumbar spine. The renal shadows are mostly obscured. There is some faint calcification present over the renal pelvic region and calyceal structure areas bilaterally left greater than right. Nonspecific GI pattern is otherwise noted. No obvious pneumoperitoneum. Facet arthropathy lumbosacral spine most prominent at L5-S1 Impression: 1. Vascular calcinosis aorta iliac vessels 2. Bilateral nephrolithiasis 3. Previous cholecystectomy. PROCEDURE INTERPRETED AT [facility] DEPARTMENT OF RADIOLOGY Final Report Signed by: Dr. Bobby Griffiths
[2017-02-23] MEDS: MELATONIN 3 MG TABLET PO SCH (21:09)
[2017-02-24] MEDS: CLINDAMYCIN 300 MG CAPSULE PO SCH ×4 (00:35→17:22)
[2017-02-24] MEDS: oxyCODONE/ACETAMINOPHEN 5-325 MG TABLET PO PRN ×4 (01:25→18:57)
[2017-02-24] MEDS: INSULIN REGULAR 100 UNIT/ML SUBCUT SCH ×4 (07:49→20:52)
[2017-02-24] MEDS: IRON (CARBONYL) 45 MG TABLET PO SCH (08:23)
[2017-02-24] MEDS: CALCIUM (CARBONATE)/VITAMIN D 600 MG-400 UNIT TABLET PO SCH (08:23)
[2017-02-24] MEDS: GABAPENTIN 300 MG CAPSULE PO SCH ×3 (08:23→18:30)
[2017-02-24] MEDS: MULTIVITAMIN (CENTRUM) TABLET PO SCH (08:23)
[2017-02-24] MEDS: DOCUSATE SODIUM 100 MG CAPSULE PO SCH ×3 (08:23→20:57)
[2017-02-24] MEDS: RIFAXIMIN 550 MG TABLET PO SCH ×2 (08:23→20:52)
[2017-02-24] MEDS: CARVEDILOL 6.25 MG TABLET PO SCH ×2 (08:23→20:52)
--- NOTE | 2017-02-24 09:03 | Urology Progress Note ---
Urology - PN: Subj Interval history: Patient had a negative cystoscopic exam. I suspect the blood is coming from the 4 mm stone in the right UPJ associated with the anticoagulation. Patient has multiple bilateral renal stones and vascular calcifications on x-ray. His urine is dark this morning I suspect he still has some hematuria Exam - Constitutional Vitals: Period Temp Pulse Resp BP Sys/Cutler Pulse Ox Last 24 Hr 96.9 F-98.7 F 62-90 15-20 96-135/53-83 93-962 Results - Labs CBC & BMP: 02/23/17 05:20 02/23/17 05:20 Specialty Discharge - Follow Up or Referrals Follow up with: Luis Antonio Villanueva MD [Physician] - 03/15/17 9:15 am
--- NOTE | 2017-02-24 18:35 | Event Note ---
General Surgery Progress Note Chief complaint This patient is a 71-year-old man admitted for right above-knee amputation complicated by A. fib with RVR in the operating is now resolving Interval history Cystoscopy negative yesterday. Patient was refused acceptance to [facility] yesterday because they would not take him afternoon. They are also refusing to take him today but are willing to take them tomorrow. He has no complaints. Physical exam The patient is afebrile and his vital signs are normal this morning His pulses are irregular He has a little bit of bilateral expiratory crackles and is a little bit tachypneic this morning His right above-knee amputation stump wound has decreased erythema has almost resolved completely. There is still some edema present. Labs none new Imaging None new Assessment and plan Repeat labs tomorrow Transfer to [facility] tomorrow
[2017-02-24] MEDS: MELATONIN 3 MG TABLET PO SCH (20:52)
[2017-02-24] MEDS ORDERED: ENOXAPARIN 40 MG/0.4 ML SYRINGE SUBCUT SCH (21:00)
[2017-02-25] MEDS: CLINDAMYCIN 300 MG CAPSULE PO SCH ×3 (00:39→12:13)
[2017-02-25] MEDS: oxyCODONE/ACETAMINOPHEN 5-325 MG TABLET PO PRN ×3 (03:06→13:44)
[2017-02-25 04:50] LABS: Basophils % 0.4 % (0.0-0.8); Eosinophils # 0.5 10*3/uL (0.0-0.87); Eosinophils % 6.4 % (0.00-10.9); Hematocrit 26.3 VOL% (42.0-52.0); Hemoglobin 8.5 GM/DL (14.0-18.0); Immature Granulocytes % 0.3 %; Immature Granulocytes Absolute 0.02 #; Lymphocytes # 1.6 10*3/uL (1.4-4.0); Lymphocytes % 21.1 % (21.2-54.2); Mean Corpuscular HGB Conc 32.3 GM/DL (32-36); Mean Corpuscular Hemoglobin 36 PG (27-34); Mean Corpuscular Volume 110.5 FL (87-102); Monocytes # 0.9 10*3/uL (0.11-0.8); Monocytes % 12.7 % (1.7-12.7); NRBC # 0.02 10*3/uL; Neutrophils # 4.4 10*3/uL (1.4-7.4); Neutrophils % 59.1 % (38.7-73.9); Platelet Count 131 T/CUMM (130-400); Red Blood Count 2.38 MC/CUMM (3.8-5.5); Red Cell Distribution Width 14.3 % (9.3-17.3); White Blood Count 7.4 T/CUMM (4-12)
[2017-02-25 05:18] LABS: Calcium 8.1 MG/DL (8.5-10.1); Potassium 3.9 MMOL/L (3.5-5.1)
[2017-02-25 07:34] LABS: Hypochromasia Slight; Platelet Estimate Decreased
[2017-02-25] MEDS: GABAPENTIN 300 MG CAPSULE PO SCH ×2 (08:35→12:13)
[2017-02-25] MEDS: CALCIUM (CARBONATE)/VITAMIN D 600 MG-400 UNIT TABLET PO SCH (08:35)
[2017-02-25] MEDS: DOCUSATE SODIUM 100 MG CAPSULE PO SCH (08:35)
[2017-02-25] MEDS: MULTIVITAMIN (CENTRUM) TABLET PO SCH (08:35)
[2017-02-25] MEDS: IRON (CARBONYL) 45 MG TABLET PO SCH (08:36)
[2017-02-25] MEDS: CARVEDILOL 6.25 MG TABLET PO SCH (08:36)
[2017-02-25] MEDS: RIFAXIMIN 550 MG TABLET PO SCH (08:36)
[2017-02-25] MEDS: INSULIN REGULAR 100 UNIT/ML SUBCUT SCH ×2 (09:00→12:23)
--- NOTE | 2017-02-25 10:10 | Urology Progress Note ---
Urology - PN: Subj Interval history: The patient has no pain in the right flank and his urine looks road mender today. Exam - Constitutional Vitals: Period Temp Pulse Resp BP Sys/Cutler Pulse Ox Last 24 Hr 96.7 F-98.0 F 70-88 18-20 87-124/44-73 96-99 Results - Labs CBC & BMP: 02/25/17 03:15 02/25/17 03:15 Specialty Discharge - Follow Up or Referrals Follow up with: Luis Antonio Villanueva MD [Physician] - 03/15/17 9:15 am
[2017-02-25 11:42] VITALS: BP 115/67
[2017-02-25] MEDS ORDERED: ALUMINUM/MAGNES/SIMETH MAX STR 30 ML UDCUP PO PRN (12:15)
--- NOTE | 2017-02-25 12:16 | Event Note ---
General Surgery Progress Note Chief complaint This patient is a 71-year-old man admitted for right above-knee amputation complicated by A. fib with RVR in the operating is now resolving Interval history No events overnight. Patient's discharge was held because he was refused by [facility] yesterday. They have stated they are willing to take them today. He is having some indigestion. Hemoglobin stable. Physical exam The patient is afebrile and his vital signs are normal this morning His pulses are irregular Chest is clear Right leg stump wound has minimal erythema and it is still has some edema but is improving overall. Labs Reviewed, creatinine is normal and stable Imaging None new Assessment and plan transfer to rehab today
== END 2017-02-25 14:00 | DRG 475 ==
LOC: N.SDSINP 08:05 → N.ICU 10:57 → N.3E 02-20 14:45
PROVIDERS: ADMIT Surgery; ATTEND Surgery

== ENCOUNTER 2017-08-25 09:15 | Inpatient (IN) ==
[2017-08-25] MEDS ORDERED: methylPREDNISolone SOD SUC 125 MG/2 ML VIAL IV STA (09:49)
[2017-08-25] MEDS ORDERED: ONDANSETRON 4 MG/2 ML VIAL IV STA (09:51)
[2017-08-25] MEDS ORDERED: PIPERACILLIN/TAZOBACTAM 3,375 MG in SODIUM CHLORIDE 0.9% 100 ML IV STA (09:51)
[2017-08-25 09:59] LABS: Basophils # 0.1 10*3/uL (0.0-0.2); Basophils % 0.3 % (0.0-0.8); Eosinophils # 0.1 10*3/uL (0.0-0.87); Eosinophils % 0.5 % (0.00-10.9); Hematocrit 37.4 VOL% (42.0-52.0); Immature Granulocytes % 0.8 %; Immature Granulocytes Absolute 0.13 #; Lymphocytes # 0.8 10*3/uL (1.4-4.0); Lymphocytes % 4.9 % (21.2-54.2); Mean Corpuscular HGB Conc 34.8 GM/DL (32-36); Mean Corpuscular Hemoglobin 37 PG (27-34); Mean Corpuscular Volume 105.1 FL (87-102); Mean Platelet Volume 11.3 FL (9.6-12.0); Monocytes # 1.2 10*3/uL (0.11-0.8); Monocytes % 7.7 % (1.7-12.7); Neutrophils # 13.8 10*3/uL (1.4-7.4); Neutrophils % 85.8 % (38.7-73.9); Platelet Count 151 T/CUMM (130-400); Red Blood Count 3.56 MC/CUMM (3.8-5.5); Red Cell Distribution Width 12.3 % (9.3-17.3)
[2017-08-25 10:01] LABS: INR 1.1; PT Patient Result 11.6 SECS
[2017-08-25] MEDS ORDERED: ONDANSETRON 4 MG/2 ML VIAL ONE (10:03)
[2017-08-25] MEDS ORDERED: methylPREDNISolone SOD SUC 125 MG/2 ML VIAL ONE (10:04)
[2017-08-25] MEDS ORDERED: PIPERACILLIN/TAZOBACTAM 3,375 MG VIAL IV ONE (10:05)
[2017-08-25 10:15] LABS: Albumin 2.9 G/DL (3.4-5.0); Bilirubin,Total 1.6 MG/DL (0.2-1.0); Osmolality,Calculated 286.3 MOS/KG (273-304); Potassium 3.5 MMOL/L (3.5-5.1); Total Protein 6.4 G/DL (6.4-8.3); Troponin I Only 0.04 NG/ML (0.00-0.045)
[2017-08-25 10:18] LABS: Band Neutrophils 4 % (0-10); Eosinophils 1 % (0-10); Giant Platelets Few; Hypochromasia 1+; Lymphocytes 4 % (20-55); Ovalocytes Slight; Platelet Estimate Normal; Segmented Neutrophils 82 % (50-85); Total Cells Counted 100
[2017-08-25 10:20] LABS: ABG Base Excess 1.5 MMOL/L (-2.5-2.5); ABG HCO3 25.7 MMOL/L (20-26); ABG Oxygen Saturation 93.7 % (95-100); ABG PCO2 31.5 MM HG (35-48); ABG PH 7.492 (7.35-7.45); ABG PO2 64.5 MM HG (80-95)
[2017-08-25 11:40] LABS: Apearance,Urine CLEAR (Clear); Bilirubin,Urine Negative (Negative); Blood, Urine Small mg/dL (Negative); Glucose,Urine (UA) Negative (Negative); Ketones,Urine Negative (Negative); Mucus,Urine Occasional /LPF (Occasional); Nitrite,Urine Negative (Negative); Protein,Urine 30 MG/DL; RBC,Urine 15 /HPF (0-4); Squamous Epithelial Cell,Urine Occasional /HPF (0-10); Urine Specific Gravity 1.019 (1.001-1.035); WBC,Urine 2 /HPF (0-6)
[2017-08-25 11:43] LABS: Urine Color Dark yellow (Yellow)
[2017-08-25] MEDS ORDERED: MAGNESIUM SULF RIDER 2 GM in PREMIX 1 EACH IV ONE ×2 (13:16→16:49)
[2017-08-25] MEDS ORDERED: MAGNESIUM SULF RIDER 0 ML IV ONE (14:17)
[2017-08-25] MEDS ORDERED: ACETAMINOPHEN 325 MG TABLET PO PRN (15:08)
[2017-08-25] MEDS ORDERED: DEXTROSE 50% 25 GM/50 ML VIAL IV PRN (15:08)
[2017-08-25] MEDS ORDERED: ONDANSETRON 4 MG/2 ML VIAL IV PRN (15:08)
[2017-08-25] MEDS ORDERED: DOCUSATE SODIUM 100 MG CAPSULE PO PRN (15:08)
[2017-08-25] MEDS ORDERED: GLUCAGON 1 MG VIAL IM PRN (15:08)
[2017-08-25] MEDS ORDERED: ALBUTEROL/IPRATROPIUM 3 ML NEB RESP TX PRN (16:21)
[2017-08-25] MEDS: INSULIN REGULAR 100 UNIT/ML SUBCUT SCH ×2 (16:41→20:52)
[2017-08-25] MEDS ORDERED: POTASSIUM CHLORIDE 20 MEQ TABLET PO PRN (16:44)
[2017-08-25] MEDS ORDERED: MAGNESIUM SULF RIDER 2 GM in PREMIX 1 EACH IV PRN (17:08)
[2017-08-25] MEDS ORDERED: MAGNESIUM SULF RIDER 4 GM in PREMIX 1 EACH IV PRN (17:08)
[2017-08-25] MEDS: PIPERACILLIN/TAZOBACTAM 3,375 MG in SODIUM CHLORIDE 0.9% 100 ML IV SCH (17:13)
[2017-08-25] MEDS: GABAPENTIN 300 MG CAPSULE PO SCH (20:51)
[2017-08-25] MEDS: CARVEDILOL 6.25 MG TABLET PO SCH (20:51)
[2017-08-25] MEDS: DILTIAZEM 60 MG TABLET PO SCH (20:51)
[2017-08-25] MEDS: RIFAXIMIN 550 MG TABLET PO SCH (20:52)
[2017-08-26] MEDS: PIPERACILLIN/TAZOBACTAM 3,375 MG in SODIUM CHLORIDE 0.9% 100 ML IV SCH ×3 (02:58→17:04)
[2017-08-26 05:35] LABS: Basophils % 0.2 % (0.0-0.8); Hematocrit 35.3 VOL% (42.0-52.0); Hemoglobin 12.7 GM/DL (14.0-18.0); Immature Granulocytes % 0.9 %; Immature Granulocytes Absolute 0.23 #; Lymphocytes # 1.6 10*3/uL (1.4-4.0); Lymphocytes % 6.4 % (21.2-54.2); Mean Corpuscular Hemoglobin 37 PG (27-34); Mean Corpuscular Volume 102.3 FL (87-102); Mean Platelet Volume 11.2 FL (9.6-12.0); Monocytes # 1.7 10*3/uL (0.11-0.8); Monocytes % 6.5 % (1.7-12.7); Platelet Count 157 T/CUMM (130-400); Red Blood Count 3.45 MC/CUMM (3.8-5.5); Red Cell Distribution Width 12.3 % (9.3-17.3); White Blood Count 25.6 T/CUMM (4-12)
[2017-08-26 06:15] LABS: Calcium 9.5 MG/DL (8.5-10.1); Potassium 3.7 MMOL/L (3.5-5.1); Risk Ratio 3.02; VLDL CHOLESTEROL 11.4 MG/DL
[2017-08-26 06:33] LABS: Band Neutrophils 2 % (0-10); Giant Platelets Few; Hypochromasia 1+; Lymphocytes 5 % (20-55); Ovalocytes Slight; Platelet Estimate Normal; Segmented Neutrophils 90 % (50-85); Total Cells Counted 100
[2017-08-26] MEDS: DILTIAZEM 60 MG TABLET PO SCH ×2 (08:27→20:43)
[2017-08-26] MEDS: SERTRALINE 50 MG TABLET PO SCH (08:27)
[2017-08-26] MEDS: POTASSIUM CHLORIDE 8 MEQ CAPSULE PO SCH (08:27)
[2017-08-26] MEDS: RIFAXIMIN 550 MG TABLET PO SCH ×2 (08:27→20:43)
[2017-08-26] MEDS: PANTOPRAZOLE 40 MG TABLET PO SCH (08:27)
[2017-08-26] MEDS: GABAPENTIN 300 MG CAPSULE PO SCH ×2 (08:27→20:43)
[2017-08-26] MEDS: CARVEDILOL 6.25 MG TABLET PO SCH ×2 (08:28→20:45)
[2017-08-26] MEDS: FUROSEMIDE 40 MG TABLET PO SCH (08:28)
[2017-08-26] MEDS: INSULIN REGULAR 100 UNIT/ML SUBCUT SCH ×4 (08:29→20:43)
[2017-08-26] MEDS: VANCOMYCIN INJ 1,750 MG in SODIUM CHLORIDE 0.9% 500 ML IV SCH (13:01)
[2017-08-27] MEDS: PIPERACILLIN/TAZOBACTAM 3,375 MG in SODIUM CHLORIDE 0.9% 100 ML IV SCH ×3 (02:20→17:37)
[2017-08-27 05:32] LABS: Basophils # 0.1 10*3/uL (0.0-0.2); Basophils % 0.4 % (0.0-0.8); Eosinophils # 0.2 10*3/uL (0.0-0.87); Eosinophils % 1.2 % (0.00-10.9); Hemoglobin 11.3 GM/DL (14.0-18.0); Immature Granulocytes % 0.5 %; Immature Granulocytes Absolute 0.07 #; Lymphocytes # 2.7 10*3/uL (1.4-4.0); Lymphocytes % 19.1 % (21.2-54.2); Mean Corpuscular HGB Conc 35.3 GM/DL (32-36); Mean Corpuscular Hemoglobin 37 PG (27-34); Mean Corpuscular Volume 103.9 FL (87-102); Mean Platelet Volume 11.4 FL (9.6-12.0); Monocytes # 1.4 10*3/uL (0.11-0.8); Monocytes % 9.6 % (1.7-12.7); Neutrophils # 9.9 10*3/uL (1.4-7.4); Neutrophils % 69.2 % (38.7-73.9); Platelet Count 140 T/CUMM (130-400); Red Blood Count 3.08 MC/CUMM (3.8-5.5); Red Cell Distribution Width 12.5 % (9.3-17.3); White Blood Count 14.2 T/CUMM (4-12)
[2017-08-27] MEDS: VANCOMYCIN INJ 1,750 MG in SODIUM CHLORIDE 0.9% 500 ML IV SCH (06:27)
[2017-08-27] MEDS: DILTIAZEM 60 MG TABLET PO SCH ×2 (09:26→20:48)
[2017-08-27] MEDS: PANTOPRAZOLE 40 MG TABLET PO SCH (09:26)
[2017-08-27] MEDS: CARVEDILOL 6.25 MG TABLET PO SCH ×2 (09:27→20:49)
[2017-08-27] MEDS: GABAPENTIN 300 MG CAPSULE PO SCH ×2 (09:27→20:49)
[2017-08-27] MEDS: RIFAXIMIN 550 MG TABLET PO SCH ×2 (09:27→20:49)
[2017-08-27] MEDS: SERTRALINE 50 MG TABLET PO SCH (09:27)
[2017-08-27] MEDS: FUROSEMIDE 40 MG TABLET PO SCH (09:27)
[2017-08-27] MEDS: POTASSIUM CHLORIDE 8 MEQ CAPSULE PO SCH (09:27)
[2017-08-27] MEDS: INSULIN REGULAR 100 UNIT/ML SUBCUT SCH ×4 (09:28→20:49)
[2017-08-28] MEDS: VANCOMYCIN INJ 1,750 MG in SODIUM CHLORIDE 0.9% 500 ML IV SCH (01:55)
[2017-08-28] MEDS: PIPERACILLIN/TAZOBACTAM 3,375 MG in SODIUM CHLORIDE 0.9% 100 ML IV SCH (04:43)
[2017-08-28 05:02] LABS: Calcium 8.8 MG/DL (8.5-10.1); Osmolality,Calculated 287.1 MOS/KG (273-304); Potassium 3.9 MMOL/L (3.5-5.1)
[2017-08-28 08:40] LABS: Basophils # 0.1 10*3/uL (0.0-0.2); Basophils % 0.7 % (0.0-0.8); Eosinophils # 0.3 10*3/uL (0.0-0.87); Eosinophils % 2.7 % (0.00-10.9); Hematocrit 36.5 VOL% (42.0-52.0); Hemoglobin 12.9 GM/DL (14.0-18.0); Immature Granulocytes % 0.6 %; Immature Granulocytes Absolute 0.06 #; Lymphocytes # 2.2 10*3/uL (1.4-4.0); Lymphocytes % 22.2 % (21.2-54.2); Mean Corpuscular HGB Conc 35.3 GM/DL (32-36); Mean Corpuscular Hemoglobin 37 PG (27-34); Mean Corpuscular Volume 105.2 FL (87-102); Mean Platelet Volume 11.1 FL (9.6-12.0); Monocytes # 1.2 10*3/uL (0.11-0.8); Monocytes % 12.4 % (1.7-12.7); Neutrophils # 6.1 10*3/uL (1.4-7.4); Neutrophils % 61.4 % (38.7-73.9); Platelet Count 137 T/CUMM (130-400); Red Blood Count 3.47 MC/CUMM (3.8-5.5); Red Cell Distribution Width 12.4 % (9.3-17.3); White Blood Count 9.9 T/CUMM (4-12)
[2017-08-28] MEDS ORDERED: CEFDINIR 300 MG CAPSULE PO SCH (09:00)
[2017-08-28] MEDS: INSULIN REGULAR 100 UNIT/ML SUBCUT SCH ×2 (09:03→11:58)
[2017-08-28] MEDS: SERTRALINE 50 MG TABLET PO SCH (09:06)
[2017-08-28] MEDS: POTASSIUM CHLORIDE 8 MEQ CAPSULE PO SCH (09:06)
[2017-08-28] MEDS: PANTOPRAZOLE 40 MG TABLET PO SCH (09:06)
[2017-08-28] MEDS: RIFAXIMIN 550 MG TABLET PO SCH (09:06)
[2017-08-28] MEDS: CARVEDILOL 6.25 MG TABLET PO SCH (09:06)
[2017-08-28] MEDS: GABAPENTIN 300 MG CAPSULE PO SCH (09:06)
[2017-08-28] MEDS: FUROSEMIDE 40 MG TABLET PO SCH (09:06)
[2017-08-28] MEDS: DILTIAZEM 60 MG TABLET PO SCH (09:07)
[2017-08-28 11:43] VITALS: BP 103/55
[2017-08-28] MEDS ORDERED: MAGNESIUM OXIDE 400 MG TABLET PO SCH (21:00)
== END 2017-08-28 15:04 | DRG 309 ==
LOC: EDUNIT# → EDBD → N.ED 09:15 → SUATTDRO 14:21 → N.EDINP 14:21 → N.TELES 15:22
PROVIDERS: ADMIT Internal Medicine Infectious Disease; ATTEND Internal Medicine

== ENCOUNTER 2017-12-14 20:12 | Inpatient (IN) ==
[2017-12-14] MEDS ORDERED: ASPIRIN 325 MG TABLET PO STA (20:49)
[2017-12-14] MEDS ORDERED: ONDANSETRON 4 MG/2 ML VIAL IV STA (20:49)
[2017-12-14] MEDS ORDERED: SODIUM CHLORIDE 0.9% 500 ML IV STA (20:49)
[2017-12-14] MEDS ORDERED: ALBUTEROL 2.5 MG/3 ML NEB RESP TX STA (20:51)
[2017-12-14 21:30] LABS: Basophils # 0.1 10*3/uL (0.0-0.2); Basophils % 0.4 % (0.0-0.8); Eosinophils % 0.2 % (0.00-10.9); Hematocrit 35.1 VOL% (42.0-52.0); Hemoglobin 11.9 GM/DL (14.0-18.0); Immature Granulocytes % 0.6 %; Lymphocytes % 12.3 % (21.2-54.2); Mean Corpuscular HGB Conc 33.9 GM/DL (32-36); Mean Corpuscular Hemoglobin 35 PG (27-34); Mean Corpuscular Volume 101.7 FL (87-102); Mean Platelet Volume 11.3 FL (9.6-12.0); Monocytes # 1.5 10*3/uL (0.11-0.8); Monocytes % 9.4 % (1.7-12.7); Neutrophils # 12.5 10*3/uL (1.4-7.4); Neutrophils % 77.1 % (38.7-73.9); Platelet Count 145 T/CUMM (130-400); Red Blood Count 3.45 MC/CUMM (3.8-5.5); Red Cell Distribution Width 14.7 % (9.3-17.3); White Blood Count 16.2 T/CUMM (4-12)
[2017-12-14] MEDS ORDERED: ALBUTEROL/IPRATROPIUM 3 ML NEB RESP TX STA (21:44)
[2017-12-14 21:49] LABS: Albumin 2.8 G/DL (3.4-5.0); Calcium 8.7 MG/DL (8.5-10.1); Osmolality,Calculated 278.4 MOS/KG (273-304); Total Protein 6.8 G/DL (6.4-8.3)
[2017-12-14] MEDS ORDERED: VANCOMYCIN INJ 1,250 MG in SODIUM CHLORIDE 0.9% 250 ML IV STA (22:24)
[2017-12-14] MEDS ORDERED: PIPERACILLIN/TAZOBACTAM 2,250 MG in SODIUM CHLORIDE 0.9% 100 ML IV STA (22:26)
[2017-12-14] MEDS ORDERED: FUROSEMIDE 40 MG/4 ML VIAL IV STA (22:27)
[2017-12-14] MEDS ORDERED: PIPERACILLIN/TAZOBACTAM 3,375 MG in SODIUM CHLORIDE 0.9% 100 ML IV STA (23:20)
[2017-12-14] MEDS ORDERED: methylPREDNISolone SOD SUC 125 MG/2 ML VIAL IV STA (23:24)
[2017-12-15] MEDS ORDERED: NICOTINE 21 MG/24 HR PATCH TRANSDERM PRN
[2017-12-15] MEDS ORDERED: ALBUMIN 25% 50 GM in PREMIX 1 EACH IV ONE
[2017-12-15] MEDS ORDERED: FUROSEMIDE 40 MG/4 ML VIAL IV ONE
[2017-12-15] MEDS ORDERED: GLUCAGON 1 MG VIAL IM PRN
[2017-12-15] MEDS ORDERED: DEXTROSE 50% 25 GM/50 ML VIAL IV PRN
[2017-12-15] MEDS ORDERED: ALBUTEROL/IPRATROPIUM 3 ML NEB RESP TX PRN
[2017-12-15 00:06] LABS: Apearance,Urine CLEAR (Clear); Bilirubin,Urine Negative (Negative); Blood, Urine Small mg/dL (Negative); Glucose,Urine (UA) Negative (Negative); Ketones,Urine Negative (Negative); Nitrite,Urine Negative (Negative); Protein,Urine Negative; RBC,Urine 2 /HPF (0-4); Urine Color Colorless (Yellow); Urine Specific Gravity 1.003 (1.001-1.035); Urine Urobilinogen < 2.0 EU/DL (0.2-1.0); WBC,Urine <1 /HPF (0-6)
[2017-12-15 00:17] LABS: Lactic Acid 2.3 MMOL/L (0.4-2.0)
[2017-12-15] MEDS ORDERED: MAGNESIUM SULF RIDER 4 GM in PREMIX 1 EACH IV PRN (00:28)
[2017-12-15] MEDS ORDERED: LACTATED RINGERS 500 ML IV ONE (00:29)
[2017-12-15 00:40] LABS: ABG Base Excess -1.8 MMOL/L (-2.5-2.5); ABG HCO3 22.9 MMOL/L (20-26); ABG PCO2 23.3 MM HG (35-48); ABG PO2 77.3 MM HG (80-95); ABG TCO2 17.2 MMOL/L (23-27)
[2017-12-15] MEDS: ALBUTEROL/IPRATROPIUM 3 ML NEB RESP TX SCH ×4 (00:45→21:40)
[2017-12-15 00:50] LABS: Risk Ratio 3.77; VLDL CHOLESTEROL 18.4 MG/DL
[2017-12-15] MEDS: INSULIN REGULAR 100 UNIT/ML SUBCUT SCH ×4 (01:53→18:19)
[2017-12-15] MEDS: DILTIAZEM 60 MG TABLET PO SCH ×2 (02:25→10:00)
[2017-12-15] MEDS: ACETAMINOPHEN 500 MG TABLET PO PRN (02:25)
[2017-12-15] MEDS: GABAPENTIN 300 MG CAPSULE PO SCH ×3 (02:25→21:34)
[2017-12-15] MEDS: POTASSIUM CHLORIDE 20 MEQ TABLET PO PRN ×4 (02:25→05:52)
[2017-12-15] MEDS: CARVEDILOL 6.25 MG TABLET PO SCH ×2 (02:26→10:03)
[2017-12-15] MEDS: traZODone 50 MG TABLET PO SCH ×2 (02:26→21:34)
[2017-12-15] MEDS: MAGNESIUM SULF RIDER 2 GM in PREMIX 1 EACH IV PRN ×2 (03:13→06:39)
[2017-12-15 05:22] LABS: Bilirubin,Total 3.9 MG/DL (0.2-1.0); Calcium 8.3 MG/DL (8.5-10.1); Osmolality,Calculated 283.3 MOS/KG (273-304); Potassium 2.7 MMOL/L (3.5-5.1); Total Protein 6.5 G/DL (6.4-8.3)
[2017-12-15] MEDS ORDERED: methylPREDNISolone SOD SUC 40 MG/1 ML VIAL IV SCH (08:00)
[2017-12-15] MEDS ORDERED: PANTOPRAZOLE 40 MG VIAL IV SCH (09:00)
[2017-12-15] MEDS: FUROSEMIDE 40 MG/4 ML VIAL IV SCH ×2 (09:56→16:04)
[2017-12-15] MEDS: MAGNESIUM OXIDE 400 MG TABLET PO SCH (10:00)
[2017-12-15] MEDS: DOCUSATE SODIUM 100 MG CAPSULE PO SCH ×2 (10:01→21:34)
[2017-12-15] MEDS: SERTRALINE 50 MG TABLET PO SCH (10:01)
[2017-12-15] MEDS: POTASSIUM CHLORIDE 8 MEQ CAPSULE PO SCH (10:04)
[2017-12-15] MEDS: ASPIRIN EC 81 MG TABLET PO SCH (10:04)
[2017-12-15] MEDS: PANTOPRAZOLE 40 MG TABLET PO SCH (10:04)
[2017-12-15] MEDS: methylPREDNISolone SOD SUC 40 MG/1 ML VIAL IV SCH ×2 (10:05→19:53)
[2017-12-15] MEDS: RIFAXIMIN 550 MG TABLET PO SCH ×2 (10:09→21:35)
[2017-12-15] MEDS: ENOXAPARIN 40 MG/0.4 ML SYRINGE SUBCUT SCH (10:09)
[2017-12-15] MEDS: LEVOFLOXACIN INJ 750 MG in PREMIX 1 EACH IV SCH (10:22)
[2017-12-15] MEDS: LOSARTAN 25 MG TABLET PO SCH (10:24)
[2017-12-15] MEDS: MORPHINE 4 MG/1 ML VIAL IV PRN ×2 (12:49→20:38)
[2017-12-15] MEDS: ROSUVASTATIN 10 MG TABLET PO SCH (21:34)
[2017-12-15] MEDS: POLYVINYL ALCOHOL 1.4% OPH SOLN 15 ML BOTTLE BOTH EYES PRN (21:56)
[2017-12-15] MEDS ORDERED: ZALEPLON 5 MG CAPSULE PO PRN (22:28)
[2017-12-16] MEDS: INSULIN REGULAR 100 UNIT/ML SUBCUT SCH ×4 (00:40→18:06)
[2017-12-16] MEDS: ALBUTEROL/IPRATROPIUM 3 ML NEB RESP TX SCH ×4 (01:01→20:30)
[2017-12-16] MEDS: MORPHINE 4 MG/1 ML VIAL IV PRN ×2 (03:46→08:41)
[2017-12-16 03:58] LABS: Allen Test Positive
[2017-12-16 03:59] LABS: ABG Base Excess -3.5 MMOL/L (-2.5-2.5); ABG HCO3 19.6 MMOL/L (20-26); ABG Oxygen Saturation 96.8 % (95-100); ABG PCO2 29.5 MM HG (35-48); ABG PH 7.441 (7.35-7.45); ABG PO2 92.5 MM HG (80-95); ABG TCO2 20.5 MMOL/L (23-27)
[2017-12-16 06:01] LABS: Basophils % 0.1 % (0.0-0.8); Hematocrit 32.8 VOL% (42.0-52.0); Immature Granulocytes Absolute 0.24 #; Lymphocytes # 0.9 10*3/uL (1.4-4.0); Lymphocytes % 3.9 % (21.2-54.2); Mean Corpuscular HGB Conc 33.5 GM/DL (32-36); Mean Corpuscular Hemoglobin 34 PG (27-34); Mean Corpuscular Volume 102.2 FL (87-102); Mean Platelet Volume 11.8 FL (9.6-12.0); Monocytes # 0.9 10*3/uL (0.11-0.8); Platelet Count 131 T/CUMM (130-400); Red Blood Count 3.21 MC/CUMM (3.8-5.5); Red Cell Distribution Width 14.1 % (9.3-17.3)
[2017-12-16 06:24] LABS: Calcium 8.1 MG/DL (8.5-10.1); Osmolality,Calculated 286.7 MOS/KG (273-304); Potassium 3.8 MMOL/L (3.5-5.1)
[2017-12-16 06:34] LABS: Band Neutrophils 2 % (0-10); Lymphocytes 6 % (20-55); Macrocytosis Slight; Segmented Neutrophils 90 % (50-85); Total Cells Counted 100
[2017-12-16 06:35] LABS: Burr Cells 1+; Platelet Estimate Adequate
[2017-12-16] MEDS: POTASSIUM CHLORIDE 20 MEQ TABLET PO PRN (06:37)
[2017-12-16] MEDS: DOCUSATE SODIUM 100 MG CAPSULE PO SCH ×2 (08:21→20:01)
[2017-12-16] MEDS: MAGNESIUM OXIDE 400 MG TABLET PO SCH (08:31)
[2017-12-16] MEDS: SERTRALINE 50 MG TABLET PO SCH (08:31)
[2017-12-16] MEDS: POTASSIUM CHLORIDE 8 MEQ CAPSULE PO SCH (08:31)
[2017-12-16] MEDS: GABAPENTIN 300 MG CAPSULE PO SCH ×2 (08:32→20:00)
[2017-12-16] MEDS: PANTOPRAZOLE 40 MG TABLET PO SCH (08:33)
[2017-12-16] MEDS: ASPIRIN EC 81 MG TABLET PO SCH (08:33)
[2017-12-16] MEDS: RIFAXIMIN 550 MG TABLET PO SCH ×2 (08:33→20:00)
[2017-12-16] MEDS: methylPREDNISolone SOD SUC 40 MG/1 ML VIAL IV SCH ×2 (08:35→19:52)
[2017-12-16] MEDS: FUROSEMIDE 40 MG/4 ML VIAL IV SCH ×2 (08:37→15:40)
[2017-12-16] MEDS: LEVOFLOXACIN INJ 750 MG in PREMIX 1 EACH IV SCH (08:47)
[2017-12-16] MEDS: ENOXAPARIN 40 MG/0.4 ML SYRINGE SUBCUT SCH (08:47)
[2017-12-16] MEDS: VANCOMYCIN INJ 1,250 MG in SODIUM CHLORIDE 0.9% 250 ML IV SCH (11:28)
[2017-12-16] MEDS: ACETAMINOPHEN 500 MG TABLET PO PRN (15:40)
[2017-12-16] MEDS ORDERED: ONDANSETRON 4 MG/2 ML VIAL IV PRN (18:06)
[2017-12-16] MEDS: traZODone 50 MG TABLET PO SCH (20:00)
[2017-12-16] MEDS: DILTIAZEM 60 MG TABLET PO SCH (20:00)
[2017-12-16] MEDS: ROSUVASTATIN 10 MG TABLET PO SCH (20:01)
[2017-12-16] MEDS: CARVEDILOL 6.25 MG TABLET PO SCH (20:01)
[2017-12-17] MEDS: INSULIN REGULAR 100 UNIT/ML SUBCUT SCH ×5 (00:49→17:00)
[2017-12-17] MEDS: VANCOMYCIN INJ 1,250 MG in SODIUM CHLORIDE 0.9% 250 ML IV SCH ×2 (00:56→12:30)
[2017-12-17] MEDS: ALBUTEROL/IPRATROPIUM 3 ML NEB RESP TX SCH ×5 (00:57→23:54)
[2017-12-17 06:12] LABS: Basophils % 0.1 % (0.0-0.8); Hematocrit 33.8 VOL% (42.0-52.0); Hemoglobin 10.9 GM/DL (14.0-18.0); Immature Granulocytes % 1.1 %; Lymphocytes # 0.8 10*3/uL (1.4-4.0); Lymphocytes % 4.5 % (21.2-54.2); Mean Corpuscular HGB Conc 32.2 GM/DL (32-36); Mean Corpuscular Hemoglobin 34 PG (27-34); Mean Platelet Volume 11.8 FL (9.6-12.0); Monocytes # 0.8 10*3/uL (0.11-0.8); Monocytes % 4.5 % (1.7-12.7); Neutrophils # 16.8 10*3/uL (1.4-7.4); Neutrophils % 89.8 % (38.7-73.9); Platelet Count 140 T/CUMM (130-400); Red Blood Count 3.19 MC/CUMM (3.8-5.5); Red Cell Distribution Width 14.1 % (9.3-17.3); White Blood Count 18.7 T/CUMM (4-12)
[2017-12-17 06:35] LABS: Band Neutrophils 1 % (0-10); Hypochromasia 1+; Lymphocytes 5 % (20-55); Macrocytosis Slight; Ovalocytes Slight; Platelet Estimate Normal; Segmented Neutrophils 90 % (50-85); Total Cells Counted 100
[2017-12-17 06:41] LABS: Calcium 8.3 MG/DL (8.5-10.1); Osmolality,Calculated 291.4 MOS/KG (273-304); Potassium 4.7 MMOL/L (3.5-5.1)
[2017-12-17] MEDS: FUROSEMIDE 40 MG/4 ML VIAL IV SCH ×2 (08:40→17:08)
[2017-12-17] MEDS: methylPREDNISolone SOD SUC 40 MG/1 ML VIAL IV SCH (08:44)
[2017-12-17] MEDS ORDERED: methylPREDNISolone SOD SUC 40 MG/1 ML VIAL IV SCH (09:30)
[2017-12-17] MEDS: ENOXAPARIN 40 MG/0.4 ML SYRINGE SUBCUT SCH (09:52)
[2017-12-17] MEDS: DILTIAZEM 60 MG TABLET PO SCH ×2 (09:52→22:46)
[2017-12-17] MEDS: LOSARTAN 25 MG TABLET PO SCH (09:53)
[2017-12-17] MEDS: GABAPENTIN 300 MG CAPSULE PO SCH ×2 (09:53→22:46)
[2017-12-17] MEDS: DOCUSATE SODIUM 100 MG CAPSULE PO SCH ×2 (09:53→22:46)
[2017-12-17] MEDS: ASPIRIN EC 81 MG TABLET PO SCH (09:53)
[2017-12-17] MEDS: PANTOPRAZOLE 40 MG TABLET PO SCH (09:53)
[2017-12-17] MEDS: RIFAXIMIN 550 MG TABLET PO SCH ×2 (09:53→22:51)
[2017-12-17] MEDS: SERTRALINE 50 MG TABLET PO SCH (09:53)
[2017-12-17] MEDS: POTASSIUM CHLORIDE 8 MEQ CAPSULE PO SCH (09:53)
[2017-12-17] MEDS: CARVEDILOL 6.25 MG TABLET PO SCH ×2 (09:54→22:46)
[2017-12-17] MEDS: MAGNESIUM OXIDE 400 MG TABLET PO SCH (09:54)
[2017-12-17] MEDS: LEVOFLOXACIN INJ 750 MG in PREMIX 1 EACH IV SCH (10:00)
[2017-12-17] MEDS: POLYVINYL ALCOHOL 1.4% OPH SOLN 15 ML BOTTLE BOTH EYES PRN (12:32)
[2017-12-17] MEDS: ROSUVASTATIN 10 MG TABLET PO SCH (22:46)
[2017-12-17] MEDS: traZODone 50 MG TABLET PO SCH (22:46)
[2017-12-18] MEDS: INSULIN REGULAR 100 UNIT/ML SUBCUT SCH ×4 (00:48→17:33)
[2017-12-18 04:50] LABS: Basophils % 0.1 % (0.0-0.8); Hematocrit 32.7 VOL% (42.0-52.0); Immature Granulocytes % 1.9 %; Immature Granulocytes Absolute 0.27 #; Lymphocytes # 1.1 10*3/uL (1.4-4.0); Lymphocytes % 7.5 % (21.2-54.2); Mean Corpuscular HGB Conc 33.6 GM/DL (32-36); Mean Corpuscular Hemoglobin 35 PG (27-34); Mean Corpuscular Volume 103.8 FL (87-102); Mean Platelet Volume 11.9 FL (9.6-12.0); Monocytes # 1.1 10*3/uL (0.11-0.8); Monocytes % 7.9 % (1.7-12.7); NRBC # 0.02 10*3/uL; Neutrophils # 11.6 10*3/uL (1.4-7.4); Neutrophils % 82.6 % (38.7-73.9); Platelet Count 141 T/CUMM (130-400); Red Blood Count 3.15 MC/CUMM (3.8-5.5); Red Cell Distribution Width 13.9 % (9.3-17.3); White Blood Count 14.1 T/CUMM (4-12)
[2017-12-18 05:13] LABS: Calcium 8.2 MG/DL (8.5-10.1); Osmolality,Calculated 295.1 MOS/KG (273-304); Potassium 4.1 MMOL/L (3.5-5.1)
[2017-12-18] MEDS: ALBUTEROL/IPRATROPIUM 3 ML NEB RESP TX SCH ×3 (06:57→19:10)
[2017-12-18] MEDS: FUROSEMIDE 40 MG/4 ML VIAL IV SCH ×2 (09:40→15:10)
[2017-12-18] MEDS: ENOXAPARIN 40 MG/0.4 ML SYRINGE SUBCUT SCH (09:48)
[2017-12-18] MEDS: ASPIRIN EC 81 MG TABLET PO SCH (09:48)
[2017-12-18] MEDS: LOSARTAN 25 MG TABLET PO SCH (09:49)
[2017-12-18] MEDS: predniSONE 20 MG TABLET PO SCH (09:49)
[2017-12-18] MEDS: PANTOPRAZOLE 40 MG TABLET PO SCH (09:49)
[2017-12-18] MEDS: MAGNESIUM OXIDE 400 MG TABLET PO SCH (09:49)
[2017-12-18] MEDS: POTASSIUM CHLORIDE 8 MEQ CAPSULE PO SCH (09:49)
[2017-12-18] MEDS: DILTIAZEM 60 MG TABLET PO SCH ×2 (09:49→21:08)
[2017-12-18] MEDS: RIFAXIMIN 550 MG TABLET PO SCH ×2 (09:49→21:09)
[2017-12-18] MEDS: GABAPENTIN 300 MG CAPSULE PO SCH ×2 (09:50→21:08)
[2017-12-18] MEDS: LEVOFLOXACIN 500 MG TABLET PO SCH (09:50)
[2017-12-18] MEDS: DOCUSATE SODIUM 100 MG CAPSULE PO SCH ×2 (09:50→21:09)
[2017-12-18] MEDS: CARVEDILOL 6.25 MG TABLET PO SCH ×2 (09:50→21:08)
[2017-12-18] MEDS: SERTRALINE 50 MG TABLET PO SCH (09:50)
[2017-12-18 12:29] LABS: Folate 12.9 NG/ML (5.4-24.0)
[2017-12-18] MEDS: traZODone 50 MG TABLET PO SCH (21:08)
[2017-12-18] MEDS: ROSUVASTATIN 10 MG TABLET PO SCH (21:08)
[2017-12-19] MEDS: INSULIN REGULAR 100 UNIT/ML SUBCUT SCH ×2 (00:05→05:35)
[2017-12-19] MEDS: ALBUTEROL/IPRATROPIUM 3 ML NEB RESP TX SCH ×2 (00:20→07:11)
[2017-12-19 07:40] VITALS: BP 114/66
[2017-12-19] MEDS: SERTRALINE 50 MG TABLET PO SCH (08:32)
[2017-12-19] MEDS: DOCUSATE SODIUM 100 MG CAPSULE PO SCH (08:32)
[2017-12-19] MEDS: predniSONE 20 MG TABLET PO SCH (08:33)
[2017-12-19] MEDS: CARVEDILOL 6.25 MG TABLET PO SCH (08:33)
[2017-12-19] MEDS: ASPIRIN EC 81 MG TABLET PO SCH (08:33)
[2017-12-19] MEDS: LOSARTAN 25 MG TABLET PO SCH (08:34)
[2017-12-19] MEDS: POTASSIUM CHLORIDE 8 MEQ CAPSULE PO SCH (08:34)
[2017-12-19] MEDS: PANTOPRAZOLE 40 MG TABLET PO SCH (08:34)
[2017-12-19] MEDS: DILTIAZEM 60 MG TABLET PO SCH (08:34)
[2017-12-19] MEDS: ENOXAPARIN 40 MG/0.4 ML SYRINGE SUBCUT SCH (08:34)
[2017-12-19] MEDS: MAGNESIUM OXIDE 400 MG TABLET PO SCH (08:34)
[2017-12-19] MEDS: GABAPENTIN 300 MG CAPSULE PO SCH (08:34)
[2017-12-19] MEDS: LEVOFLOXACIN 500 MG TABLET PO SCH (08:35)
[2017-12-19] MEDS: FUROSEMIDE 40 MG/4 ML VIAL IV SCH (08:35)
[2017-12-19] MEDS: RIFAXIMIN 550 MG TABLET PO SCH (08:35)
[2017-12-20] MEDS ORDERED: FUROSEMIDE 40 MG TABLET PO SCH (09:00)
== END 2017-12-19 11:38 | disposition home health service (06) | DRG 291 ==
LOC: EDUNIT# → N.ED 20:12 → N.EDINP 23:27 → SUATTDRO 23:27 → N.ICU 23:50 → N.TELES 12-16 14:09
PROVIDERS: ADMIT Internal Medicine; ATTEND Internal Medicine

== ENCOUNTER 2018-01-27 17:36 | Inpatient (IN) ==
[2018-01-30 15:44] VITALS: BP 120/60
== END 2018-01-30 16:57 | disposition home health service (06) | DRG 433 ==
LOC: EDBD → EDUNIT# → N.ED 17:36 → N.EDINP 17:36 → N.5E 23:34 → SUATTDRO 01-28 11:00
PROVIDERS: ADMIT Internal Medicine; ATTEND Internal Medicine

== ENCOUNTER 2018-03-29 10:26 | Inpatient (IN) ==
[2018-03-29] MEDS ORDERED: methylPREDNISolone SOD SUC 125 MG/2 ML VIAL IV STA (10:44)
[2018-03-29] MEDS ORDERED: FUROSEMIDE 100 MG/10 ML VIAL IV STA (10:44)
[2018-03-29] MEDS ORDERED: MORPHINE 4 MG/1 ML VIAL IV STA (10:44)
[2018-03-29] MEDS ORDERED: ASPIRIN 325 MG TABLET PO STA (10:44)
[2018-03-29] MEDS ORDERED: ONDANSETRON 4 MG/2 ML VIAL IV STA (10:44)
[2018-03-29] MEDS ORDERED: FUROSEMIDE 40 MG/4 ML VIAL IV STA (10:47)
[2018-03-29 10:56] LABS: Basophils # 0.1 10*3/uL (0.0-0.2); Basophils % 0.9 % (0.0-0.8); Eosinophils # 0.4 10*3/uL (0.0-0.87); Eosinophils % 4.1 % (0.00-10.9); Hematocrit 40.5 VOL% (42.0-52.0); Hemoglobin 13.4 GM/DL (14.0-18.0); Immature Granulocytes % 0.4 %; Immature Granulocytes Absolute 0.04 #; Lymphocytes # 2.4 10*3/uL (1.4-4.0); Lymphocytes % 23.3 % (21.2-54.2); Mean Corpuscular HGB Conc 33.1 GM/DL (32-36); Mean Corpuscular Hemoglobin 34 PG (27-34); Mean Corpuscular Volume 101.3 FL (87-102); Mean Platelet Volume 11.6 FL (9.6-12.0); Monocytes # 1.4 10*3/uL (0.11-0.8); Monocytes % 13.7 % (1.7-12.7); Neutrophils # 5.9 10*3/uL (1.4-7.4); Neutrophils % 57.6 % (38.7-73.9); Platelet Count 163 T/CUMM (130-400); Red Cell Distribution Width 14.2 % (9.3-17.3); White Blood Count 10.3 T/CUMM (4-12)
[2018-03-29] MEDS ORDERED: ALBUTEROL 2.5 MG/3 ML NEB RESP TX SCH (11:00)
[2018-03-29 11:07] LABS: INR 1.1; PT Patient Result 11.7 SECS
[2018-03-29 11:20] LABS: Alanine Aminotransferase 21 U/L (16-61); Albumin 2.4 G/DL (3.4-5.0); Alkaline Phosphatase 117 U/L (45-117); Aspartate Amino Transferase 45 U/L (0-37); Blood Urea Nitrogen 7 MG/DL (7-18); Calcium 8.7 MG/DL (8.5-10.1); Glucose 117 MG/DL (74-106); Lactic Acid 2.1 MMOL/L (0.4-2.0); Potassium 3.3 MMOL/L (3.5-5.1); Sodium 143 MMOL/L (136-145); Total Protein 6.4 G/DL (6.4-8.3)
[2018-03-29 11:35] LABS: ABG Base Excess 0.9 MMOL/L (-2.5-2.5); ABG HCO3 25.2 MMOL/L (20-26); ABG Oxygen Saturation 99.2 % (95-100); ABG PCO2 31.5 MM HG (35-48); ABG PH 7.481 (7.35-7.45); ABG TCO2 20.3 MMOL/L (23-27)
[2018-03-29] MEDS ORDERED: DEXTROSE 50% 25 GM/50 ML VIAL IV PRN (13:08)
[2018-03-29] MEDS ORDERED: GLUCAGON 1 MG VIAL IM PRN (13:08)
[2018-03-29] MEDS ORDERED: ONDANSETRON 4 MG/2 ML VIAL IV PRN (13:08)
[2018-03-29] MEDS ORDERED: ACETAMINOPHEN 325 MG TABLET PO PRN (13:08)
[2018-03-29 13:11] LABS: Apearance,Urine CLEAR (Clear); Bacteria,Urine Occasional /HPF (Few); Bilirubin,Urine Negative (Negative); Blood, Urine Small mg/dL (Negative); Glucose,Urine (UA) Negative (Negative); Hyaline Casts,Urine 1 /LPF (0-3); Ketones,Urine Negative (Negative); Mucus,Urine Occasional /LPF (Occasional); Nitrite,Urine Negative (Negative); Protein,Urine Negative; RBC,Urine 16 /HPF (0-4); Urine Specific Gravity 1.012 (1.001-1.035); WBC,Urine 122 /HPF (0-6)
[2018-03-29 13:12] LABS: Urine Color Yellow (Yellow)
[2018-03-29] MEDS ORDERED: ALBUTEROL 2.5 MG/3 ML NEB RESP TX PRN (13:25)
[2018-03-29] MEDS ORDERED: POTASSIUM CHLORIDE RIDER 10 MEQ in PREMIX 1 EACH IV PRN (13:44)
[2018-03-29] MEDS: GABAPENTIN 300 MG CAPSULE PO SCH ×2 (16:15→20:26)
[2018-03-29] MEDS: LEVOFLOXACIN INJ 750 MG in PREMIX 1 EACH IV SCH (16:16)
[2018-03-29] MEDS: ENOXAPARIN 40 MG/0.4 ML SYRINGE SUBCUT SCH (16:16)
[2018-03-29] MEDS: INSULIN LISPRO 100 UNIT/ML SUBCUT SCH ×2 (17:24→20:23)
[2018-03-29] MEDS: NITROGLYCERIN 2% OINT 1 INCH/GM PACK TOP SCH (18:11)
[2018-03-29] MEDS: ALBUTEROL/IPRATROPIUM 3 ML NEB RESP TX SCH (19:51)
[2018-03-29] MEDS: FUROSEMIDE 40 MG/4 ML VIAL IV SCH (20:23)
[2018-03-29] MEDS: CARVEDILOL 6.25 MG TABLET PO SCH (20:26)
[2018-03-29] MEDS: THEOPHYLLINE 5.33 MG/ML 30 ML/BOTTLE PO SCH (20:27)
[2018-03-29] MEDS: RIFAXIMIN 550 MG TABLET PO SCH (20:59)
[2018-03-30] MEDS: NITROGLYCERIN 2% OINT 1 INCH/GM PACK TOP SCH ×2 (00:18→05:36)
[2018-03-30] MEDS: ALBUTEROL/IPRATROPIUM 3 ML NEB RESP TX SCH ×4 (01:17→20:53)
[2018-03-30 05:10] LABS: Basophils % 0.1 % (0.0-0.8); Hematocrit 33.9 VOL% (42.0-52.0); Hemoglobin 11.8 GM/DL (14.0-18.0); Immature Granulocytes % 0.6 %; Lymphocytes % 5.9 % (21.2-54.2); Mean Corpuscular HGB Conc 34.8 GM/DL (32-36); Mean Corpuscular Hemoglobin 34 PG (27-34); Mean Corpuscular Volume 96.6 FL (87-102); Mean Platelet Volume 12.4 FL (9.6-12.0); Monocytes % 5.9 % (1.7-12.7); Neutrophils # 14.2 10*3/uL (1.4-7.4); Neutrophils % 87.5 % (38.7-73.9); Platelet Count 154 T/CUMM (130-400); Red Blood Count 3.51 MC/CUMM (3.8-5.5); Red Cell Distribution Width 13.9 % (9.3-17.3); White Blood Count 16.2 T/CUMM (4-12)
[2018-03-30 05:42] LABS: Albumin 2.1 G/DL (3.4-5.0); Bilirubin,Total 2.4 MG/DL (0.2-1.0); Calcium 8.1 MG/DL (8.5-10.1); Osmolality,Calculated 283.4 MOS/KG (273-304); Potassium 3.4 MMOL/L (3.5-5.1); Risk Ratio 4.16; Thyroid Stimulating Hormone 0.403 uIU/ml (0.358-3.74); Total Protein 5.8 G/DL (6.4-8.3)
[2018-03-30] MEDS ORDERED: MAGNESIUM SULF RIDER 2 GM in PREMIX 1 EACH IV ONE (07:22)
[2018-03-30] MEDS: POTASSIUM CHLORIDE 20 MEQ TABLET PO SCH ×3 (07:57→16:56)
[2018-03-30] MEDS: THEOPHYLLINE 5.33 MG/ML 30 ML/BOTTLE PO SCH ×2 (08:56→20:18)
[2018-03-30] MEDS: GABAPENTIN 300 MG CAPSULE PO SCH ×3 (08:57→20:15)
[2018-03-30] MEDS: PANTOPRAZOLE 40 MG TABLET PO SCH (08:57)
[2018-03-30] MEDS: predniSONE 5 MG TABLET PO SCH (08:57)
[2018-03-30] MEDS: INSULIN LISPRO 100 UNIT/ML SUBCUT SCH ×4 (08:57→20:16)
[2018-03-30] MEDS: RIFAXIMIN 550 MG TABLET PO SCH ×2 (08:58→20:15)
[2018-03-30] MEDS ORDERED: LOSARTAN 25 MG TABLET PO SCH (09:00)
[2018-03-30] MEDS: FUROSEMIDE 40 MG/4 ML VIAL IV SCH ×2 (09:13→16:54)
[2018-03-30] MEDS: SPIRONOLACTONE 50 MG TABLET PO SCH ×2 (09:13→20:19)
[2018-03-30] MEDS: CARVEDILOL 6.25 MG TABLET PO SCH ×2 (09:13→20:17)
[2018-03-30 09:20] LABS: Folate 10.3 NG/ML (5.4-24.0)
[2018-03-30] MEDS: LACTULOSE 20 GM/30 ML UDCUP PO SCH ×2 (14:26→20:16)
[2018-03-30] MEDS: ENOXAPARIN 40 MG/0.4 ML SYRINGE SUBCUT SCH (14:26)
[2018-03-30] MEDS: LEVOFLOXACIN INJ 750 MG in PREMIX 1 EACH IV SCH (16:57)
[2018-03-31] MEDS: ALBUTEROL/IPRATROPIUM 3 ML NEB RESP TX SCH ×4 (00:57→19:48)
[2018-03-31 06:16] LABS: Basophils % 0.3 % (0.0-0.8); Eosinophils # 0.3 10*3/uL (0.0-0.87); Eosinophils % 1.9 % (0.00-10.9); Hematocrit 34.7 VOL% (42.0-52.0); Hemoglobin 11.6 GM/DL (14.0-18.0); Immature Granulocytes % 0.6 %; Immature Granulocytes Absolute 0.08 #; Lymphocytes # 2.6 10*3/uL (1.4-4.0); Lymphocytes % 19.8 % (21.2-54.2); Mean Corpuscular HGB Conc 33.4 GM/DL (32-36); Mean Corpuscular Hemoglobin 34 PG (27-34); Mean Corpuscular Volume 100.3 FL (87-102); Monocytes # 1.4 10*3/uL (0.11-0.8); Monocytes % 10.4 % (1.7-12.7); Neutrophils # 8.7 10*3/uL (1.4-7.4); Platelet Count 170 T/CUMM (130-400); Red Blood Count 3.46 MC/CUMM (3.8-5.5); Red Cell Distribution Width 14.5 % (9.3-17.3)
[2018-03-31 06:45] LABS: Albumin 2.3 G/DL (3.4-5.0); Bilirubin,Total 1.2 MG/DL (0.2-1.0); Calcium 8.9 MG/DL (8.5-10.1); Potassium 3.8 MMOL/L (3.5-5.1); Total Protein 5.8 G/DL (6.4-8.3)
[2018-03-31] MEDS: INSULIN LISPRO 100 UNIT/ML SUBCUT SCH ×4 (08:37→21:12)
[2018-03-31] MEDS: PANTOPRAZOLE 40 MG TABLET PO SCH (09:09)
[2018-03-31] MEDS: CARVEDILOL 6.25 MG TABLET PO SCH ×2 (09:09→20:27)
[2018-03-31] MEDS: SPIRONOLACTONE 50 MG TABLET PO SCH ×2 (09:09→20:26)
[2018-03-31] MEDS: predniSONE 5 MG TABLET PO SCH (09:09)
[2018-03-31] MEDS: RIFAXIMIN 550 MG TABLET PO SCH ×2 (09:09→20:27)
[2018-03-31] MEDS: LACTULOSE 20 GM/30 ML UDCUP PO SCH ×2 (09:09→21:10)
[2018-03-31] MEDS: GABAPENTIN 300 MG CAPSULE PO SCH ×3 (09:09→20:26)
[2018-03-31] MEDS: THEOPHYLLINE 5.33 MG/ML 30 ML/BOTTLE PO SCH ×2 (09:16→20:28)
[2018-03-31] MEDS: ENOXAPARIN 40 MG/0.4 ML SYRINGE SUBCUT SCH (16:45)
[2018-03-31] MEDS: BENZONATATE 100 MG CAPSULE PO SCH ×2 (16:45→20:27)
[2018-03-31] MEDS: LEVOFLOXACIN INJ 750 MG in PREMIX 1 EACH IV SCH (16:48)
[2018-04-01] MEDS: ALBUTEROL/IPRATROPIUM 3 ML NEB RESP TX SCH ×2 (01:59→07:57)
[2018-04-01] MEDS ORDERED: POTASSIUM CHLORIDE 20 MEQ TABLET PO PRN (07:33)
[2018-04-01 08:00] LABS: Basophils # 0.1 10*3/uL (0.0-0.2); Basophils % 0.8 % (0.0-0.8); Eosinophils # 0.5 10*3/uL (0.0-0.87); Eosinophils % 4.7 % (0.00-10.9); Hematocrit 36.1 VOL% (42.0-52.0); Immature Granulocytes % 0.4 %; Immature Granulocytes Absolute 0.04 #; Lymphocytes # 2.9 10*3/uL (1.4-4.0); Mean Corpuscular HGB Conc 33.2 GM/DL (32-36); Mean Corpuscular Hemoglobin 34 PG (27-34); Mean Corpuscular Volume 101.7 FL (87-102); Mean Platelet Volume 11.7 FL (9.6-12.0); Monocytes # 1.4 10*3/uL (0.11-0.8); Monocytes % 14.1 % (1.7-12.7); Neutrophils # 5.2 10*3/uL (1.4-7.4); Platelet Count 151 T/CUMM (130-400); Red Blood Count 3.55 MC/CUMM (3.8-5.5); Red Cell Distribution Width 14.5 % (9.3-17.3); White Blood Count 10.1 T/CUMM (4-12)
[2018-04-01 08:27] LABS: Albumin 2.3 G/DL (3.4-5.0); Bilirubin,Total 1.5 MG/DL (0.2-1.0); Calcium 8.4 MG/DL (8.5-10.1); Osmolality,Calculated 292.6 MOS/KG (273-304); Potassium 4.6 MMOL/L (3.5-5.1); Total Protein 6.2 G/DL (6.4-8.3)
[2018-04-01] MEDS: INSULIN LISPRO 100 UNIT/ML SUBCUT SCH ×2 (08:46→12:08)
[2018-04-01] MEDS: LACTULOSE 20 GM/30 ML UDCUP PO SCH (09:28)
[2018-04-01] MEDS: SPIRONOLACTONE 50 MG TABLET PO SCH (09:28)
[2018-04-01] MEDS: RIFAXIMIN 550 MG TABLET PO SCH (09:28)
[2018-04-01] MEDS: GABAPENTIN 300 MG CAPSULE PO SCH (09:28)
[2018-04-01] MEDS: PANTOPRAZOLE 40 MG TABLET PO SCH (09:28)
[2018-04-01] MEDS: BENZONATATE 100 MG CAPSULE PO SCH (09:28)
[2018-04-01] MEDS: THEOPHYLLINE 5.33 MG/ML 30 ML/BOTTLE PO SCH (09:29)
[2018-04-01] MEDS: CARVEDILOL 6.25 MG TABLET PO SCH (09:29)
[2018-04-01] MEDS: predniSONE 5 MG TABLET PO SCH (09:29)
[2018-04-01 11:56] VITALS: BP 122/78
== END 2018-04-01 12:15 | disposition home health service (06) | DRG 292 ==
LOC: EDBD → EDUNIT# → N.ED 10:26 → N.EDINP 13:08 → N.TELEN 14:15
PROVIDERS: ADMIT Hospitalist; ATTEND Hospitalist